=== PATIENT | male | born 1970 | race African-American/Black ===

== ENCOUNTER 2025-06-07 15:28 | Outpatient (AMB) | payer OTHER, SELFPAY ==
--- OUTSIDE RECORDS SUMMARY | 2025-02-22 11:45 | XMS_ITS ---
Author Organization [facility] Address [address] [place] [address] Care Team Providers Care Hogshead Stripper Name Role Phone Andrea Owens Primary Care Provider Romana Valles Unavailable [phone] Encounters Encounter Location Date Provider Diagnosis [address] [address] 02/22/2025 Romana Leyva Plan Of Treatment No Information Progress Notes * Sharee MANCUSOOB:1970 ([age] yo M)Acc No.[id number]:02/22/2025 Progress Note Patient: John TIRADO Provider: Mari Leyva DPM :1970 A ge:54 Y S ex:Male Date:02/22/2025 Address:[address] [place] [address], [place] Pcp:Andrea Owens Subjective: * Chief Complaints: * * Medical History: Objective: * Vitals: Assessment: Plan: * Treatment: * Images: * The named appointment provid er may or may not be the originator of this progress note, and it is not deemed complete until electronically signed by the appointment provider. Sign off status: Pending * Provider: Mari Leyva DPM Date: 02/22/2025 Generated for Traceei kai/Jennifer/eTransmitting on: 06/07/2025 03:59 PM EDT
--- OUTSIDE RECORDS SUMMARY | 2025-06-07 15:58 | XMS_ITS | Clinical Summary ---
Author Organization [facility] [place] [address] Care Team Providers Care Tow Truck Operator Name Role Phone Andrea Owens MD Primary Care Provider [phone] Surgical History Surgery Date Site/Laterality Comments SINUS SURGERY PROCEDURE:SINUS SURGERY HAND SURGERY PROCEDURE:HAND SURGERY CARDIAC CATHETERIZATION 03/07/2023 N/A PROCEDURE:CARDIAC CATHETERIZATION;COMMENT:Procedure: LEFT HEART CATHETERIZATION; Surgeon: Ishmael Kent DO; Location: [facility]OTE[facility]; Service: Cardiology; Laterality: N/A; CARDIAC CATHETERIZATION 03/07/2023 N/A PROCEDURE:CARDIAC CATHETERIZATION;COMMENT:Procedure: CORONARY ANGIOGRAPHY; Surgeon: Ishmael Kent DO; Location: [facility]; Service: Cardiology; Laterality: N/A; Medical History Medical History Date Comments Hyperlipidemia DX:Hyperlipidemi a Hypertension DX:Hypertension Diabetes mellitus (CMS/HCC V24, CMS/HCC V28) DX:Diabetes mellitus ([facility]) Social History Tobacco Use Types Packs/Day Years Used Date Smoking Tobacco: Never Smokeless Tobacco: Never Alcohol Use Standard Drinks/Week Comments Not Currently 0 (1 standard drink = 0.6 oz pur e alcohol) Sex and Gender Information Value Date Recorded Sex Assigned at Not on file Legal Sex Male 11:03 AM EST Gender Identity Not on file Sexual Orientation Not on file Obstetrics History Last Filed Vital Signs Vital Sign Reading Time Taken Comments Blood Pressure 146/89 07/13/2024 10:52 AM EDT Pulse 76 02/19/2023 10:58 AM EDT Temperature - - Respiratory Rate - - Oxygen Saturation - - Inhaled Oxygen Concentration - - Weight 149 kg (328 lb) 07/13/2024 10:52 AM EDT Height 182.9 cm (6') 07/13/2024 10:52 AM EDT Body Mass Index 44.48 07/13/2024 10:52 AM EDT Plan of Treatment Health Maintenance Due Date Last Done Comments DTaP,Tdap,and Td Vaccines (1 - Tdap) 1989 Hepatitis B Vaccines (1 of 3 - 19+ 3-dose series) 1989 Pneumococcal Vaccine: 50+ Ye ars (1 of 2 - PCV) 1989 Zoster Vaccines (1 of 2) 2020 Cholesterol Screening (Lipid Panel) 09/18/2022 Colorectal Cancer Screening: Colonoscopy 09/18/2022 HIV Screening 09/18/2022 Hepatitis C Screening 09/18/2022 Social Influencers of Health Screening 09/18/2022 Hypertension/CHF/CAD Annual BMP Blood Test 11/24/2023 COVID-19 Vaccine (1 - 2023-2 5 season) 2024 Depression Screening 10/21/2024 Influenza Vaccine (#1) 2025 HIB Vaccines Aged Out No longer eligi ble based on patient's age to complete this topic HPV Vaccines Aged Out No longer eligi ble based on patient's age to complete this topic Hepatitis A Vaccines Aged Out No long er eligible based on patient's age to complete this topic IPV Vaccines Aged Out No longer eligi ble based on patient's age to complete this topic MMR Vaccines Aged Out No longer eligi ble based on patient's age to complete this topic Meningococcal ACWY Vaccine Aged Out N o longer eligible based on patient's age to complete this topic Meningococcal B Vaccine Aged Out No l onger eligible based on patient's age to complete this topic RSV Immunization Patients Un kevyn 20 months Aged Out No longer eligible b ased on patient's age to complete this topic Varicella Vaccines Aged Out No longer eligible based on patient's age to complete this topic Care Teams Tow Truck Operator Relationship Specialty Start Date End Date Andrea Owens MD PCP - General 02/19/23
--- OUTSIDE RECORDS SUMMARY | 2025-06-07 15:58 | XMS_ITS | Clinical Summary ---
Author Organization [facility] Address [address] [place] [address] Care Team Providers Care Traffic Operations Engineer Name Role Phone Andrea Owens MD Primary Care Provider [phone] Allergies No known active allergies Medications Medication Sig Dispensed Refills Start Date End Date Status amLODIPine (NORVASC) tablet 10 mg Take 1 tablet (10 mg total) by mouth daily. 0 02/04/2023 Active carvedilol (COREG) 25 MG tablet Take 1 tablet (25 mg total) by mouth 2 (two) times a day. 0 01/27/2023 Active diclofenac (VOLTAREN) 75 MG EC tablet Take 1 tablet (75 mg total) by mouth 2 (two) times a day as needed. for pain 0 02/04/2023 Active olmesartan (BENICAR) tablet 40 mg Take 1 tablet (40 mg total) by mouth. 0 Active rosuvastatin (CRESTOR) tablet 20 mg Take 1 tablet (20 mg total) by mouth daily. 0 01/30/2023 Active terazosin (HYTRIN) 5 MG capsule Take 1 capsule (5 mg total) by mouth daily. 0 02/11/2023 Active dulaglutide (TRULICITY) 0.75 MG/0.5ML subcutaneous pen-injector Inject under the skin once a week. 0 Active Active Problems Problem Noted Date Diagnosed Date Abnormal EKG 02/19/2023 Essential hypertension 02/19/2023 Mixed hyperlipidemia 02/19/2023 Social History Tobacco Use Types Packs/Day Years Used Date Smoking Tobacco: Never Passive Smoke Exposure: Never Smokeless Tobacco: Never Tobacco Cessation:Counseling Given: Not Answered Alcohol Use Standard Drinks/Week Comments Not Currently 0 (1 standard drink = 0.6 oz pur e alcohol) Sex and Gender Information Value Date Recorded Sex Assigned at Male 02/25/2023 10:46 AM EDT Gender Identity Not on file Sexual Orientation Not on file Job Start Date Occupation Industry Not on file Not on file Not on file Last Filed Vital Signs Vital Sign Reading Time Taken Comments Blood Pressure 171/97 03/07/2023 3:30 PM EDT Pulse 73 03/07/2023 3:30 PM EDT Temperature 36.6 C (97.9 F) 03/07/2023 9:48 AM EDT Respiratory Rate 24 03/07/2023 3:30 PM EDT Oxygen Saturation 99% 03/07/2023 3:30 PM EDT Inhaled Oxygen Concentration - - Weight 153 kg (337 lb 4.8 oz) 03/07/2023 9:48 AM EDT Height 182.9 cm (6') 03/07/2023 9:48 AM EDT Body Mass Index 45.75 03/07/2023 9:48 AM EDT Plan of Treatment Health Maintenance Due Date Last Done Comments Hepatitis B Vaccines (1 of 3 - 3-dose series) 1970 Hepatitis C Screening 1970 Depression Screening 1982 BMI Counseling 1988 Preventative Health Evaluation 1988 DTap / Tdap / Td (1 - Tdap) 1989 Colon Cancer Screening (Colonoscopy) 2015 Shingrix-Zoster Vaccine (1 of 2) 2020 COVID-19 Vaccine (2 - 2023-2 5 season) 2024 03/11/2021 Influenza Vaccine (#1) 2025 09/11/2021 Pneumococcal Vaccine Aged Out No long er eligible based on patient's age to complete this topic RSV Ped < 20 months Aged Out No longe r eligible based on patient's age to complete this topic Insurance Payer Benefit Plan / Group Subscriber ID Effective Dates Phone Address [facility] [id number] 2018-Present [address] [facility] [address] [place] [address] HMO Advance Directives For more information, please contact: [phone] Latest Code Status on File Code Status Date Activated Date Inactivated Comments Full Code 03/07/2023 1:16 PM 03/07/2023 11:43 PM This code status was ascertained in the following way: discussion with patient . Care Teams Traffic Operations Engineer Relationship Specialty Start Date End Date Andrea Owens MD [address] [place] [address] PCP - General Internal Medicine 02/19/23
--- OUTSIDE RECORDS SUMMARY | 2025-06-07 15:58 | XMS_ITS | Encounter Summary ---
Author Organization [facility] Address [address] [place] [address] Care Team Providers Care Tower Operator Name Role Phone Abrahan Hastings MD Unavailable Andrea Owens MD Primary Care Provider [phone] Carlos Eduardo Fulton MD Unavailable Jose Jolly MD Unavailable [phone] Encounter Details Date Type Department Care Team (Late st Contact Info) Description 04/26/2023 Scanned Document [facility] [address] [id number] Abrahan Hastings MD [address] [place] [id number] Social History Tobacco Use Types Packs/Day Years Used Date Smoking Tobacco: Never Smokeless Tobacco: Never Alcohol Use Standard Drinks/Week Comments Not Currently 0 (1 standard drink = 0.6 oz pur e alcohol) social only AUDIT-C Answer Date Recorded Q1: How often do you have a drink containing alc ohol? Monthly or less 03/20/2023 Q2: How many drinks containi ng alcohol do you have on a typical day when you are drinking? 1 or 2 03/20/2023 Q3: How often do you have si x or more drinks on one occasion? Never 03/20/2023 Sex and Gender Information Value Date Recorded Sex Assigned at Male 01/21/2023 11:36 AM EDT Legal Sex Male 8:32 AM EDT Gender Identity Male 01/21/2023 11:36 AM EDT Sexual Orientation Heterosexual (straight) 04/26 8:56 AM EDT COVID-19 Exposure Response Date Recorded In the last 10 days, have yo u been in contact with someone who was confirmed or suspected to have Coronavirus/COVID-19? No / Unsure 04/26/2023 8:57 AM EDT documented as of this encounter Plan of Treatment Not on file documented as of this encounter Visit Diagnoses Not on filedocumented in this encounter Care Teams Tower Operator Relationship Specialty Start Date End Date Andrea Owens MD [address] [place] [phone] PCP - General Internal Medicine 02/01/23 Abrahan Hastings MD [address] [place] [phone] Surgery, Orthopedic 02/01/23 Carlos Eduardo Fulton MD [address] [place] [phone] Cardiovascular Disease 03/20/23 Jose Jolly MD [address] [place] [phone] Primary Vein Pumper Cardiovascular Disease 12/12/23 documented as of this encounter
--- OUTSIDE RECORDS SUMMARY | 2025-06-07 15:59 | XMS_ITS | Patient Health Record ---
Author Organization [facility] [address] Address [address] [place] [address] Care Team Providers Care Fountain Dispenser Name Role Phone EMILY SCOTT Unavailable [phone] Allergies No Known Allergies Results Component Value Reference Range Notes LIPID PANEL, STANDARD Reviewed date:03/11/2025 08:15:51 AM Interpretation: Performing [facility] [place], [place] [id number] Ricardo Rhoades Notes/Report: FASTING: YES FASTING:YES CHOLESTEROL, TOTAL 120 <200 mg/dL HDL CHOLESTEROL 34 > OR = 40 mg/dL TRIGLYCERIDES 98 <150 mg/dL LDL-CHOLESTEROL 68 Reference range: <100 Desirable range <100 mg/dL for primary prevention; <70 mg/dL for patients with CHD or diabetic patients with > or = 2 CHD risk factors. LDL-C is now calculated using the Mark-Jenkins calculation, which is a validated novel method providing better accuracy than the Friedewald equation in the estimation of LDL-C. Mark SS et al. VANESSA. 2013;310(19): 1686-4631 (http://education.Lax.com.com/faq/APG410) CHOL/HDLC RATIO 3.5 <5.0 (calc) NON HDL CHOLESTEROL 86 <130 mg/dL (calc) For patients with diabetes plus 1 major ASCVD risk factor, treating to a non-HDL-C goal of <100 mg/dL (LDL-C of <70 mg/dL) is considered a therapeutic option. COMPREHENSIVE METABOLIC PANE L Reviewed date:03/11/2025 08:16:11 AM Interpretation: Performing [facility] [place], [place] [id number] Ricardo Rhoades Notes/Report: FASTING:YES FASTING: YES GLUCOSE 79 65-99 mg/dL Fasting reference interval UREA NITROGEN (BUN) 13 7-25 mg/dL CREATININE 0.92 0.70-1.30 mg/dL EGFR 99 > OR = 60 mL/min/1.73m2 BUN/CREATININE RATIO SEE NOTE: 6-22 (calc) Not Reported: BUN and Creatinine are within reference range. SODIUM 139 135-146 mmol/L POTASSIUM 3.9 3.5-5.3 mmol/L CHLORIDE 103 98-110 mmol/L CARBON DIOXIDE 28 20-32 mmol/L CALCIUM 8.7 8.6-10.3 mg/dL PROTEIN, TOTAL 6.8 6.1-8.1 g/dL ALBUMIN 4.0 3.6-5.1 g/dL GLOBULIN 2.8 1.9-3.7 g/dL (calc) ALBUMIN/GLOBULIN RATIO 1.4 1.0-2.5 (calc) BILIRUBIN, TOTAL 0.4 0.2-1.2 mg/dL ALKALINE PHOSPHATASE 53 35-144 U/L AST 17 10-35 U/L ALT 15 9-46 U/L CBC (INCLUDES DIFF/PLT) Reviewed date:03/11/2025 08:15:45 AM Interpretation: Performing Lab:NL2, [facility] [address] Ricardo Shrestha Notes/Report: FASTING:YES FASTING: YES WHITE BLOOD CELL COUNT 4.7 3.8-10.8 Thousand/ uL RED BLOOD CELL COUNT 4.45 4.20-5.80 Million/uL HEMOGLOBIN 11.6 13.2-17.1 g/dL HEMATOCRIT 37.5 38.5-50.0 % MCV 84.3 80.0-100.0 fL MCH 26.1 27.0-33.0 pg MCHC 30.9 32.0-36.0 g/dL For adults, a slight decrease in the calculated MCHC value (in the range of 30 to 32 g/dL) is most likely not clinically significant; however, it should be interpreted with caution in correlation with other red cell parameters and the patient's clinical condition. RDW 16.0 11.0-15.0 % PLATELET COUNT 231 140-400 Thousand/uL MPV 11.2 7.5-12.5 fL ABSOLUTE NEUTROPHILS 2265 2744-6944 cells/uL ABSOLUTE LYMPHOCYTES 9892 584-2907 cells/uL ABSOLUTE MONOCYTES 616 200-950 cells/uL ABSOLUTE EOSINOPHILS 61 15-500 cells/uL ABSOLUTE BASOPHILS 19 0-200 cells/uL NEUTROPHILS 48.2 LYMPHOCYTES 37.0 MONOCYTES 13.1 EOSINOPHILS 1.3 BASOPHILS 0.4 URINALYSIS, COMPLETE Reviewed date:03/11/2025 08:16:11 AM Interpretation: Performing Lab:NL2, [id number] Ricardo Rhoades Notes/Report: FASTING:YES FASTING: YES COLOR YELLOW YELLOW APPEARANCE CLEAR CLEAR SPECIFIC GRAVITY 1.027 1.001-1.035 PH 6.5 5.0-8.0 GLUCOSE NEGATIVE NEGATIVE BILIRUBIN NEGATIVE NEGATIVE KETONES TRACE NEGATIVE OCCULT BLOOD NEGATIVE NEGATIVE PROTEIN TRACE NEGATIVE NITRITE NEGATIVE NEGATIVE LEUKOCYTE ESTERASE NEGATIVE NEGATIVE WBC NONE SEEN < OR = 5 /HPF RBC 0-2 < OR = 2 /HPF SQUAMOUS EPITHELIAL CELLS NONE SEEN < OR = 5 /HPF BACTERIA NONE SEEN NONE SEEN /HPF HYALINE CAST NONE SEEN NONE SEEN /LPF NOTE This urine was analyzed for the presence of WBC, RBC, bacteria, casts, and other formed elements. Only those elements seen were reported. HEMOGLOBIN A1c Reviewed date:03/11/2025 08:14:47 AM Interpretation: Performing Lab:GERRY[facility], [id number] Jaye Jordyn Rhoades Notes/Report: FASTING:YES FASTING: YES HEMOGLOBIN A1c 5.9 <5.7 % For someone without known diabetes, a hemoglobin A1c value between 5.7% and 6.4% is consistent with prediabetes and should be confirmed with a follow-up test. For someone with known diabetes, a value <7% indicates that their diabetes is well controlled. A1c targets should be individualized based on duration of diabetes, age, comorbid conditions, and other considerations. This assay result is consistent with an increased risk of diabetes. Currently, no consensus exists regarding use of hemoglobin A1c for diagnosis of diabetes for children. Your request to have a duplicate copy faxed has been acknowledged. Queued to: [id number] T4, FREE Reviewed date:03/11/2025 08:16:11 AM Interpretation: Performing Lab:NL2, [facility] [id number] Ricardo Rhoades Notes/Report: FASTING:YES FASTING: YES T4, FREE 1.1 0.8-1.8 ng/dL TSH Reviewed date:03/11/2025 08:16:11 AM Interpretation: Performing Lab:NL2, [facility] [id number] [place] [address] [facility] Notes/Report: FASTING:YES FASTING: YES TSH 0.95 0.40-4.50 mIU/L T3, FREE Reviewed date:03/11/2025 08:16:11 AM Interpretation: Performing Lab:NL2, [id number] [place] [address] [facility] Notes/Report: FASTING:YES FASTING: YES T3, FREE 3.2 2.3-4.2 pg/mL Reason For Referral No Information Medications Medication SIG (Take, Route, Frequency, Duration) Notes Start Date End Date Status Mounjaro 12.5 MG/0.5ML 12.5 mg Subcutane ous weekly; Duration: 30 days 03/09/2025 Active Dexcom G6 Sensor - APPLY ONE SENSOR SUBCUTANEOUSLY EVERY 10 DAYS; Duration: 30 Active Mounjaro 10 MG/0.5ML INJECT 10 MG UNDER THE SKIN ONE DAY A WEEK; Duration: 28 Active Carvedilol 25 MG TAKE 1 TABLET BY LUIZA TWICE DAILY WITH FOOD; Duration: 90 Active CeleBREX 200 MG 1 capsule with food Orally Once a day Active DexSocialBro G6 Plasterer Tender - as directed; Durati on: 30 days 11/01/2023 Active DexSocialBro G6 Transmitter - apply one sensor subcutaneously every 10 days for DX E11.9; Duration: 30 days Active Prazosin HCl 5 MG TAKE 1 CAPSULE BY [facility] DAILY AT BEDTIME; Duration: 90 Active Furosemide 40 MG TAKE 1 TABLET BY LUIZA TH DAILY; Duration: 90 Active metFORMIN HCl ER 500 MG TAKE 2 TABLETS B Y MOUTH TWICE DAILY; Duration: 30 Active Olmesartan Medoxomil 40 MG 1 tablet Orally Once a day; Duration: 90 days 02/18/2024 Active Rosuvastatin Calcium 20 MG 1 tablet Orally Once a day; Duration: 90 days Active Immunizations Vaccine Route Administration Date Status Comme nts influenza IM Intramuscular 10/15/2023 Administered SHINGRIX IM Intramuscular 11/05/2023 Administered SHINGRIX IM Intramuscular 08/06/2024 Administered SHINGRIX IM Intramuscular 11/09/2024 Administered Tdap IM Intramuscular 11/09/2024 Administered Problems Problem Type SNOMED Code ICD Code Onset Dates Problem Status W/U Status Risk Notes Problem Vitamin D deficiency (22741007) Vitamin D deficiency, unspecified (E55.9) Active confirmed Problem Essential hypertension (03526536) Essential (primary) hypertension (I10) Active confirmed Problem Excessive thirst (35193805) Polydipsia (R63.1) Active confirmed Problem Screening for malignant neoplasm of prostate (764844262) Encounter for screening for malignant neoplasm of prostate (Z12.5) Active confirmed Problem Endocrine/metabolic screening (288776860) Encounter for screening for other suspected endocrine disorder (Z13.29) Active confirmed Problem Screening procedure (61772275) Encounter for screening, unspecified (Z13.9) Active confirmed Problem Essential hypertension (73283387) Essential hypertension (I10) Active confirmed Problem Morbid obesity (360739938) Morbid obesity (E66.01) Active confirmed Problem Backache (602235111) Back pain, unspecified back location, unspecified back pain laterality, unspecified chronicity (M54.9) Active confirmed Problem Pure hypercholesterolemia (279646912) Pure hypercholesterolemia (E78.00) Active confirmed Problem Acquired hypothyroidism (394752372) Acquired hypothyroidism (E03.9) Active confirmed Problem Hyperlipoproteinemia (4067864) Acquired hyperlipoproteinemia (E78.5) Active confirmed Problem Seasonal allergy (615855631) Seasonal allergies (J30.2) Active confirmed Problem Type II diabetes mellitus without complication (380938487) Type 2 diabetes mellitus without complication, without long-term current use of insulin (E11.9) Active confirmed Problem Dyslipidemia (286678858) Dyslipidemia (E78.5) Active confirmed Problem Obstructive sleep apnea (07450752) Obstructive sleep apnea (G47.33) Active confirmed Problem Hyperglycemia due to type 2 diabetes mellitus (912981316730110) Poorly controlled diabetes mellitus (E11.65) Active confirmed Problem Body mass index 40+ - severely obese (871734104) BMI 45.0-49.9, adult (Z68.42) Active confirmed Vital Signs Heart Rate 97 /min 03/09/2025 Oximetry 98 % 03/09/2025 Blood pressure diastolic 96 mm Hg 03/09/2025 Height 71 in 03/09/2025 Blood pressure systolic 144 mm Hg 03/09/2025 Weight 324.2 lbs 03/09/2025 BMI 45.21 kg/m2 03/09/2025 Encounters Encounter Location Date Provider Diagnosis [facility] [address] [place] [address] 08/06/2024 EMILY SCOTT Dyslipidemia E78.5 ; Type 2 diabetes mellitus without complication, without long-term current use of insulin E11.9 ; Acquired hypothyroidism E03.9 ; Peripheral edema R60.9 and Encounter for immunization Z23 [facility] [address] [place] [address] 11/09/2024 EMILY SCOTT Type 2 diabetes deanne itus without complication, without long-term current use of insulin E11.9 ; Annual physical exam Z00.00 ; Dyslipidemia E78.5 ; Acquired hypothyroidism E03.9 ; Peripheral edema R60.9 and Encounter for immunization Z23 [facility] [address] [place] [address] 03/09/2025 EMILY SCOTT Type 2 diabetes deanne itus without complication, without long-term current use of insulin E11.9 ; Dyslipidemia E78.5 ; Acquired hypothyroidism E03.9 ; Peripheral edema R60.9 and Essential hypertension I10 [facility] [address] [place] [phone] 03/17/2025 EMILY SCOTT Assessments Encounter Date Diagnosis (ICD Code) Assessment Notes Treatment Notes Treatment Clinical Notes Section Notes 08/06/2024 Type 2 diabetes mellitus without complication, without long-term current use of insulin (ICD-10 - E11.9) # T2DM Patient is currently taking metformin 1 mg x 2 tabs BID and Mounjaro 7.5 mg weekly injection. States blood sugars have been well controlled, at time of visit being at 95. Uses dexacom to track blood sugars and states majority of the time they are in range, with a few highs that he is easily able to get back down. Check POC HbA1C today-5.8! #Peripheral edema. Patient endorses bilateral lower leg edema. Echo normal. ? Due to Amlodipine. Will continue Furosemide 40 mg po daily. Dsicussed hidden sodium causing increased swelling. # Obesity: BMI 46.83, Weight 328. Patient down 10 lbs since previous visit, increase Mounjaro to 10 mg to increase appetite supression. Patient denies side effects including nausea and constipation. Case discussed with collaborating physician Isaura Owens who reviewed the assessment and plan. Chart, medications, labs, vital signs reviewed. Dictation was accomplished with the use of [employer] voice recognition software, prone to medical misidentifications and grammatical errors. This is unintentional and the practitioner does try to identify and correct these, but some could still be present. Please do not hesitate to contact practitioner for clarification. All questions answered to patients satisfaction. Patient verbalized understanding of diagnosis and treatments explained. To call sooner prior to next visit it any questions/concerns arise. 08/06/2024 Dyslipidemia (ICD-10 - E78.5) # T2DM Patient is currently taking metformin 1 mg x 2 tabs BID and Mounjaro 7.5 mg weekly injection. States blood sugars have been well controlled, at time of visit being at 95. Uses dexacom to track blood sugars and states majority of the time they are in range, with a few highs that he is easily able to get back down. Check POC HbA1C today-5.8! #Peripheral edema. Patient endorses bilateral lower leg edema. Echo normal. ? Due to Amlodipine. Will continue Furosemide 40 mg po daily. Dsicussed hidden sodium causing increased swelling. # Obesity: BMI 46.83, Weight 328. Patient down 10 lbs since previous visit, increase Mounjaro to 10 mg to increase appetite supression. Patient denies side effects including nausea and constipation. Case discussed with collaborating physician Isaura Owens who reviewed the assessment and plan. Chart, medications, labs, vital signs reviewed. Dictation was accomplished with the use of [employer] voice recognition software, prone to medical misidentifications and grammatical errors. This is unintentional and the practitioner does try to identify and correct these, but some could still be present. Please do not hesitate to contact practitioner for clarification. All questions answered to patients satisfaction. Patient verbalized understanding of diagnosis and treatments explained. To call sooner prior to next visit it any questions/concerns arise. 11/09/2024 Annual physical exam (ICD-10 - Z00.00) # T2DM Patient is currently taking metformin 500 mg x 2 tabs BID and Mounjaro 10 mg weekly injection. States blood sugars have been well controlled, uses Dexcom. Reports rash from adhesive, recommended changing Dexcom site to back of the arm. #Peripheral edema. Improved since discontinuing amlodipine. Continue Furosemide 40 mg po daily. Continue compression socks. # Obesity: BMI 44.24, Weight 317. Patient down 10 lbs since previous visit. Continue Mounjaro 10 mg. Patient denies side effects including nausea and constipation. # Screenings: UTD # Vaccines: Due for tetanus and second shingles dose. Physical Men Patient seen and examined. Comprehensive discussion was done on the following. 1. Nutrition: It is important to follow a healthy diet based on lots of vegetables and legumes and good fat. Avoid processed food and processed carbohydrates. Learn to prepare your own meals. Learn to read labels and avoid high fructose corn syrup, processed chemicals added to increase shelf life and preprepared meals. Avoid fast foods. Learn to eat slowly and plan meals for a week. Try to count calories and be mindful off daily calorie intake. Get into the habit of keeping an eye on your weight by using an appropriate scale. Learn to log exercise and discussed fitness Apps like [employer] which can help keep log off calories taken versus calories burned. Local food should be preferred. Discussed Dirty Dozen Versus Clean Fifteen. Discussed healthy supplements like fish oil, Tumeric, Curcumin, Melatonin, Resveratrol, Probiotics, Vitamin-D, Alpha-Lipoic acid, Vitamin-D and coconut oil. 2. It is important to exercise regularly. Is a good habit to walk at least 30-45 minutes a day. Gentle weightlifting with standard precautions to protect the back. Finding activity like cycling or hiking and get into the habit of engaging in it. Stretching before and after the exercises important. It is also important to contact me if there are any problems like shortness of breath, chest pain, back pain and joint or muscle pain associated with the exercise. 3. Discussed age appropriate screening guidelines. Colonoscopy needs to start at age 50 with stool for occult blood as appropriate. There is a new test that can test for genetic abnormalities in the stool sample. This would not replace a colonoscopy but could be used as a screening tool for patients who do not want a colonoscopy. We discussed the importance of early detection of colon cancer. 4. Discussed current PSA screening. PSA screening can be done in most patients between age 50 and 65. However early detection of prostate cancer needs to carefully be balanced with complications with treatment. These include incontinence, impotence etc. Each patient should decide if they would like to have this test. 5. Discussed safe driving and no use of smart phone while driving 6. Age-appropriate immunizations were discussed. A tetanus booster is needed every 10 years. Flu vaccine is recommended every year just before the start of the flu season. Shingles vaccine is recommended after age 50 but not all insurances cover it. Pneumonia vaccine is given after age 65 unless there are certain comorbidities for which it is started earlier. 7. Diagnostic labs were discussed. These could include CBC CMP and lipids with fasting blood glucose and insulin levels. Vitamin D and hemoglobin A1c testing might be appropriate. Case discussed with collaborating physician Isaura Owens who reviewed the assessment and plan. Chart, medications, labs, vital signs reviewed. Dictation was accomplished with the use of [employer] voice recognition software, prone to medical misidentifications and grammatical errors. This is unintentional and the practitioner does try to identify and correct these, but some could still be present. Please do not hesitate to contact practitioner for clarification. All questions answered to patients satisfaction. Patient verbalized understanding of diagnosis and treatments explained. To call sooner prior to next visit it any questions/concerns arise. 11/09/2024 Type 2 diabetes mellitus without complication, without long-term current use of insulin (ICD-10 - E11.9) # T2DM Patient is currently taking metformin 500 mg x 2 tabs BID and Mounjaro 10 mg weekly injection. States blood sugars have been well controlled, uses Dexcom. Reports rash from adhesive, recommended changing Dexcom site to back of the arm. #Peripheral edema. Improved since discontinuing amlodipine. Continue Furosemide 40 mg po daily. Continue compression socks. # Obesity: BMI 44.24, Weight 317. Patient down 10 lbs since previous visit. Continue Mounjaro 10 mg. Patient denies side effects including nausea and constipation. # Screenings: UTD # Vaccines: Due for tetanus and second shingles dose. Physical Men Patient seen and examined. Comprehensive discussion was done on the following. 1. Nutrition: It is important to follow a healthy diet based on lots of vegetables and legumes and good fat. Avoid processed food and processed carbohydrates. Learn to prepare your own meals. Learn to read labels and avoid high fructose corn syrup, processed chemicals added to increase shelf life and preprepared meals. Avoid fast foods. Learn to eat slowly and plan meals for a week. Try to count calories and be mindful off daily calorie intake. Get into the habit of keeping an eye on your weight by using an appropriate scale. Learn to log exercise and discussed fitness Apps like [employer] which can help keep log off calories taken versus calories burned. Local food should be preferred. Discussed Dirty Dozen Versus [employer] Fifteen. Discussed healthy supplements like fish oil, Tumeric, Curcumin, Melatonin, Resveratrol, Probiotics, Vitamin-D, Alpha-Lipoic acid, Vitamin-D and coconut oil. 2. It is important to exercise regularly. Is a good habit to walk at least 30-45 minutes a day. Gentle weightlifting with standard precautions to protect the back. Finding activity like cycling or hiking and get into the habit of engaging in it. Stretching before and after the exercises important. It is also important to contact me if there are any problems like shortness of breath, chest pain, back pain and joint or muscle pain associated with the exercise. 3. Discussed age appropriate screening guidelines. Colonoscopy needs to start at age 50 with stool for occult blood as appropriate. There is a new test that can test for genetic abnormalities in the stool sample. This would not replace a colonoscopy but could be used as a screening tool for patients who do not want a colonoscopy. We discussed the importance of early detection of colon cancer. 4. Discussed current PSA screening. PSA screening can be done in most patients between age 50 and 65. However early detection of prostate cancer needs to carefully be balanced with complications with treatment. These include incontinence, impotence etc. Each patient should decide if they would like to have this test. 5. Discussed safe driving and no use of smart phone while driving 6. Age-appropriate immunizations were discussed. A tetanus booster is needed every 10 years. Flu vaccine is recommended every year just before the start of the flu season. Shingles vaccine is recommended after age 50 but not all insurances cover it. Pneumonia vaccine is given after age 65 unless there are certain comorbidities for which it is started earlier. 7. Diagnostic labs were discussed. These could include CBC CMP and lipids with fasting blood glucose and insulin levels. Vitamin D and hemoglobin A1c testing might be appropriate. Case discussed with collaborating physician Isaura Owens who reviewed the assessment and plan. Chart, medications, labs, vital signs reviewed. Dictation was accomplished with the use of [employer] voice recognition software, prone to medical misidentifications and grammatical errors. This is unintentional and the practitioner does try to identify and correct these, but some could still be present. Please do not hesitate to contact practitioner for clarification. All questions answered to patients satisfaction. Patient verbalized understanding of diagnosis and treatments explained. To call sooner prior to next visit it any questions/concerns arise. 03/09/2025 Type 2 diabetes mellitus without complication, without long-term current use of insulin (ICD-10 - E11.9) # T2DM Patient is currently taking metformin 500 mg x 2 tabs BID and Mounjaro 10 mg weekly injection. Increase to Mounjaro 12.5 mg subcu weekly. States blood sugars have been well controlled, uses Dexcom. Awaiting HbA1C #Peripheral edema. Improved since discontinuing amlodipine. Continue Furosemide 40 mg po daily. Continue compression socks. # Obesity: BMI 44.24, Weight 317. Patient down 10 lbs since previous visit. Continue Mounjaro 10 mg. Patient denies side effects including nausea and constipation. # HTN. Asked to check at home. On Olmesartan and Metoprolol. Denies headaches. # Seasonal allergies. Takes Zyrtec. Instructed to avoid anything with decongestants. Case discussed with collaborating physician Jemma Owens who reviewed the assessment and plan. Chart, medications, labs, vital signs reviewed. Dictation was accomplished with the use of [employer] voice recognition software, prone to medical misidentifications and grammatical errors. This is unintentional and the practitioner does try to identify and correct these, but some could still be present. Please do not hesitate to contact practitioner for clarification. All questions answered to patients satisfaction. Patient verbalized understanding of diagnosis and treatments explained. To call sooner prior to next visit it any questions/concerns arise. 03/09/2025 Dyslipidemia (ICD-10 - E78.5) # T2DM Patient is currently taking metformin 500 mg x 2 tabs BID and Mounjaro 10 mg weekly injection. Increase to Mounjaro 12.5 mg subcu weekly. States blood sugars have been well controlled, uses Dexcom. Awaiting HbA1C #Peripheral edema. Improved since discontinuing amlodipine. Continue Furosemide 40 mg po daily. Continue compression socks. # Obesity: BMI 44.24, Weight 317. Patient down 10 lbs since previous visit. Continue Mounjaro 10 mg. Patient denies side effects including nausea and constipation. # HTN. Asked to check at home. On Olmesartan and Metoprolol. Denies headaches. # Seasonal allergies. Takes Zyrtec. Instructed to avoid anything with decongestants. Case discussed with collaborating physician Jemma Owens who reviewed the assessment and plan. Chart, medications, labs, vital signs reviewed. Dictation was accomplished with the use of [employer] voice recognition software, prone to medical misidentifications and grammatical errors. This is unintentional and the practitioner does try to identify and correct these, but some could still be present. Please do not hesitate to contact practitioner for clarification. All questions answered to patients satisfaction. Patient verbalized understanding of diagnosis and treatments explained. To call sooner prior to next visit it any questions/concerns arise. 08/06/2024 Acquired hypothyroidism (ICD-10 - E03.9) # T2DM Patient is currently taking metformin 1 mg x 2 tabs BID and Mounjaro 7.5 mg weekly injection. States blood sugars have been well controlled, at time of visit being at 95. Uses dexacom to track blood sugars and states majority of the time they are in range, with a few highs that he is easily able to get back down. Check POC HbA1C today-5.8! #Peripheral edema. Patient endorses bilateral lower leg edema. Echo normal. ? Due to Amlodipine. Will continue Furosemide 40 mg po daily. Dsicussed hidden sodium causing increased swelling. # Obesity: BMI 46.83, Weight 328. Patient down 10 lbs since previous visit, increase Mounjaro to 10 mg to increase appetite supression. Patient denies side effects including nausea and constipation. Case discussed with collaborating physician Isaura Owens who reviewed the assessment and plan. Chart, medications, labs, vital signs reviewed. Dictation was accomplished with the use of [employer] voice recognition software, prone to medical misidentifications and grammatical errors. This is unintentional and the practitioner does try to identify and correct these, but some could still be present. Please do not hesitate to contact practitioner for clarification. All questions answered to patients satisfaction. Patient verbalized understanding of diagnosis and treatments explained. To call sooner prior to next visit it any questions/concerns arise. 03/09/2025 Acquired hypothyroidism (ICD-10 - E03.9) # T2DM Patient is currently taking metformin 500 mg x 2 tabs BID and Mounjaro 10 mg weekly injection. Increase to Mounjaro 12.5 mg subcu weekly. States blood sugars have been well controlled, uses Dexcom. Awaiting HbA1C #Peripheral edema. Improved since discontinuing amlodipine. Continue Furosemide 40 mg po daily. Continue compression socks. # Obesity: BMI 44.24, Weight 317. Patient down 10 lbs since previous visit. Continue Mounjaro 10 mg. Patient denies side effects including nausea and constipation. # HTN. Asked to check at home. On Olmesartan and Metoprolol. Denies headaches. # Seasonal allergies. Takes Zyrtec. Instructed to avoid anything with decongestants. Case discussed with collaborating physician Jemma Owens who reviewed the assessment and plan. Chart, medications, labs, vital signs reviewed. Dictation was accomplished with the use of [employer] voice recognition software, prone to medical misidentifications and grammatical errors. This is unintentional and the practitioner does try to identify and correct these, but some could still be present. Please do not hesitate to contact practitioner for clarification. All questions answered to patients satisfaction. Patient verbalized understanding of diagnosis and treatments explained. To call sooner prior to next visit it any questions/concerns arise. 11/09/2024 Dyslipidemia (ICD-10 - E78.5) # T2DM Patient is currently taking metformin 500 mg x 2 tabs BID and Mounjaro 10 mg weekly injection. States blood sugars have been well controlled, uses Dexcom. Reports rash from adhesive, recommended changing Dexcom site to back of the arm. #Peripheral edema. Improved since discontinuing amlodipine. Continue Furosemide 40 mg po daily. Continue compression socks. # Obesity: BMI 44.24, Weight 317. Patient down 10 lbs since previous visit. Continue Mounjaro 10 mg. Patient denies side effects including nausea and constipation. # Screenings: UTD # Vaccines: Due for tetanus and second shingles dose. Physical Men Patient seen and examined. Comprehensive discussion was done on the following. 1. Nutrition: It is important to follow a healthy diet based on lots of vegetables and legumes and good fat. Avoid processed food and processed carbohydrates. Learn to prepare your own meals. Learn to read labels and avoid high fructose corn syrup, processed chemicals added to increase shelf life and preprepared meals. Avoid fast foods. Learn to eat slowly and plan meals for a week. Try to count calories and be mindful off daily calorie intake. Get into the habit of keeping an eye on your weight by using an appropriate scale. Learn to log exercise and discussed fitness Apps like [employer] which can help keep log off calories taken versus calories burned. Local food should be preferred. Discussed [employer]. Discussed healthy supplements like fish oil, Tumeric, Curcumin, Melatonin, Resveratrol, Probiotics, Vitamin-D, Alpha-Lipoic acid, Vitamin-D and coconut oil. 2. It is important to exercise regularly. Is a good habit to walk at least 30-45 minutes a day. Gentle weightlifting with standard precautions to protect the back. Finding activity like cycling or hiking and get into the habit of engaging in it. Stretching before and after the exercises important. It is also important to contact me if there are any problems like shortness of breath, chest pain, back pain and joint or muscle pain associated with the exercise. 3. Discussed age appropriate screening guidelines. Colonoscopy needs to start at age 50 with stool for occult blood as appropriate. There is a new test that can test for genetic abnormalities in the stool sample. This would not replace a colonoscopy but could be used as a screening tool for patients who do not want a colonoscopy. We discussed the importance of early detection of colon cancer. 4. Discussed current PSA screening. PSA screening can be done in most patients between age 50 and 65. However early detection of prostate cancer needs to carefully be balanced with complications with treatment. These include incontinence, impotence etc. Each patient should decide if they would like to have this test. 5. Discussed safe driving and no use of smart phone while driving 6. Age-appropriate immunizations were discussed. A tetanus booster is needed every 10 years. Flu vaccine is recommended every year just before the start of the flu season. Shingles vaccine is recommended after age 50 but not all insurances cover it. Pneumonia vaccine is given after age 65 unless there are certain comorbidities for which it is started earlier. 7. Diagnostic labs were discussed. These could include CBC CMP and lipids with fasting blood glucose and insulin levels. Vitamin D and hemoglobin A1c testing might be appropriate. Case discussed with collaborating physician Isaura Owens who reviewed the assessment and plan. Chart, medications, labs, vital signs reviewed. Dictation was accomplished with the use of [employer] voice recognition software, prone to medical misidentifications and grammatical errors. This is unintentional and the practitioner does try to identify and correct these, but some could still be present. Please do not hesitate to contact practitioner for clarification. All questions answered to patients satisfaction. Patient verbalized understanding of diagnosis and treatments explained. To call sooner prior to next visit it any questions/concerns arise. 08/06/2024 Peripheral edema (ICD-10 - R60.9) # T2DM Patient is currently taking metformin 1 mg x 2 tabs BID and Mounjaro 7.5 mg weekly injection. States blood sugars have been well controlled, at time of visit being at 95. Uses dexacom to track blood sugars and states majority of the time they are in range, with a few highs that he is easily able to get back down. Check POC HbA1C today-5.8! #Peripheral edema. Patient endorses bilateral lower leg edema. Echo normal. ? Due to Amlodipine. Will continue Furosemide 40 mg po daily. Dsicussed hidden sodium causing increased swelling. # Obesity: BMI 46.83, Weight 328. Patient down 10 lbs since previous visit, increase Mounjaro to 10 mg to increase appetite supression. Patient denies side effects including nausea and constipation. Case discussed with collaborating physician Isaura Owens who reviewed the assessment and plan. Chart, medications, labs, vital signs reviewed. Dictation was accomplished with the use of [employer] voice recognition software, prone to medical misidentifications and grammatical errors. This is unintentional and the practitioner does try to identify and correct these, but some could still be present. Please do not hesitate to contact practitioner for clarification. All questions answered to patients satisfaction. Patient verbalized understanding of diagnosis and treatments explained. To call sooner prior to next visit it any questions/concerns arise. 11/09/2024 Acquired hypothyroidism (ICD-10 - E03.9) # T2DM Patient is currently taking metformin 500 mg x 2 tabs BID and Mounjaro 10 mg weekly injection. States blood sugars have been well controlled, uses Dexcom. Reports rash from adhesive, recommended changing Dexcom site to back of the arm. #Peripheral edema. Improved since discontinuing amlodipine. Continue Furosemide 40 mg po daily. Continue compression socks. # Obesity: BMI 44.24, Weight 317. Patient down 10 lbs since previous visit. Continue Mounjaro 10 mg. Patient denies side effects including nausea and constipation. # Screenings: UTD # Vaccines: Due for tetanus and second shingles dose. Physical Men Patient seen and examined. Comprehensive discussion was done on the following. 1. Nutrition: It is important to follow a healthy diet based on lots of vegetables and legumes and good fat. Avoid processed food and processed carbohydrates. Learn to prepare your own meals. Learn to read labels and avoid high fructose corn syrup, processed chemicals added to increase shelf life and preprepared meals. Avoid fast foods. Learn to eat slowly and plan meals for a week. Try to count calories and be mindful off daily calorie intake. Get into the habit of keeping an eye on your weight by using an appropriate scale. Learn to log exercise and discussed fitness Apps like [employer] which can help keep log off calories taken versus calories burned. Local food should be preferred. Discussed [employer] Vers[employer]. Discussed healthy supplements like fish oil, Tumeric, Curcumin, Melatonin, Resveratrol, Probiotics, Vitamin-D, Alpha-Lipoic acid, Vitamin-D and coconut oil. 2. It is important to exercise regularly. Is a good habit to walk at least 30-45 minutes a day. Gentle weightlifting with standard precautions to protect the back. Finding activity like cycling or hiking and get into the habit of engaging in it. Stretching before and after the exercises important. It is also important to contact me if there are any problems like shortness of breath, chest pain, back pain and joint or muscle pain associated with the exercise. 3. Discussed age appropriate screening guidelines. Colonoscopy needs to start at age 50 with stool for occult blood as appropriate. There is a new test that can test for genetic abnormalities in the stool sample. This would not replace a colonoscopy but could be used as a screening tool for patients who do not want a colonoscopy. We discussed the importance of early detection of colon cancer. 4. Discussed current PSA screening. PSA screening can be done in most patients between age 50 and 65. However early detection of prostate cancer needs to carefully be balanced with complications with treatment. These include incontinence, impotence etc. Each patient should decide if they would like to have this test. 5. Discussed safe driving and no use of smart phone while driving 6. Age-appropriate immunizations were discussed. A tetanus booster is needed every 10 years. Flu vaccine is recommended every year just before the start of the flu season. Shingles vaccine is recommended after age 50 but not all insurances cover it. Pneumonia vaccine is given after age 65 unless there are certain comorbidities for which it is started earlier. 7. Diagnostic labs were discussed. These could include CBC CMP and lipids with fasting blood glucose and insulin levels. Vitamin D and hemoglobin A1c testing might be appropriate. Case discussed with collaborating physician Isaura Owens who reviewed the assessment and plan. Chart, medications, labs, vital signs reviewed. Dictation was accomplished with the use of [employer] voice recognition software, prone to medical misidentifications and grammatical errors. This is unintentional and the practitioner does try to identify and correct these, but some could still be present. Please do not hesitate to contact practitioner for clarification. All questions answered to patients satisfaction. Patient verbalized understanding of diagnosis and treatments explained. To call sooner prior to next visit it any questions/concerns arise. 03/09/2025 Peripheral edema (ICD-10 - R60.9) # T2DM Patient is currently taking metformin 500 mg x 2 tabs BID and Mounjaro 10 mg weekly injection. Increase to Mounjaro 12.5 mg subcu weekly. States blood sugars have been well controlled, uses Dexcom. Awaiting HbA1C #Peripheral edema. Improved since discontinuing amlodipine. Continue Furosemide 40 mg po daily. Continue compression socks. # Obesity: BMI 44.24, Weight 317. Patient down 10 lbs since previous visit. Continue Mounjaro 10 mg. Patient denies side effects including nausea and constipation. # HTN. Asked to check at home. On Olmesartan and Metoprolol. Denies headaches. # Seasonal allergies. Takes Zyrtec. Instructed to avoid anything with decongestants. Case discussed with collaborating physician Jemma Owens who reviewed the assessment and plan. Chart, medications, labs, vital signs reviewed. Dictation was accomplished with the use of [employer] voice recognition software, prone to medical misidentifications and grammatical errors. This is unintentional and the practitioner does try to identify and correct these, but some could still be present. Please do not hesitate to contact practitioner for clarification. All questions answered to patients satisfaction. Patient verbalized understanding of diagnosis and treatments explained. To call sooner prior to next visit it any questions/concerns arise. 11/09/2024 Peripheral edema (ICD-10 - R60.9) # T2DM Patient is currently taking metformin 500 mg x 2 tabs BID and Mounjaro 10 mg weekly injection. States blood sugars have been well controlled, uses Dexcom. Reports rash from adhesive, recommended changing Dexcom site to back of the arm. #Peripheral edema. Improved since discontinuing amlodipine. Continue Furosemide 40 mg po daily. Continue compression socks. # Obesity: BMI 44.24, Weight 317. Patient down 10 lbs since previous visit. Continue Mounjaro 10 mg. Patient denies side effects including nausea and constipation. # Screenings: UTD # Vaccines: Due for tetanus and second shingles dose. Physical Men Patient seen and examined. Comprehensive discussion was done on the following. 1. Nutrition: It is important to follow a healthy diet based on lots of vegetables and legumes and good fat. Avoid processed food and processed carbohydrates. Learn to prepare your own meals. Learn to read labels and avoid high fructose corn syrup, processed chemicals added to increase shelf life and preprepared meals. Avoid fast foods. Learn to eat slowly and plan meals for a week. Try to count calories and be mindful off daily calorie intake. Get into the habit of keeping an eye on your weight by using an appropriate scale. Learn to log exercise and discussed fitness Apps like [employer] which can help keep log off calories taken versus calories burned. Local food should be preferred. Discussed [employer] Vers[employer]. Discussed healthy supplements like fish oil, Tumeric, Curcumin, Melatonin, Resveratrol, Probiotics, Vitamin-D, Alpha-Lipoic acid, Vitamin-D and coconut oil. 2. It is important to exercise regularly. Is a good habit to walk at least 30-45 minutes a day. Gentle weightlifting with standard precautions to protect the back. Finding activity like cycling or hiking and get into the habit of engaging in it. Stretching before and after the exercises important. It is also important to contact me if there are any problems like shortness of breath, chest pain, back pain and joint or muscle pain associated with the exercise. 3. Discussed age appropriate screening guidelines. Colonoscopy needs to start at age 50 with stool for occult blood as appropriate. There is a new test that can test for genetic abnormalities in the stool sample. This would not replace a colonoscopy but could be used as a screening tool for patients who do not want a colonoscopy. We discussed the importance of early detection of colon cancer. 4. Discussed current PSA screening. PSA screening can be done in most patients between age 50 and 65. However early detection of prostate cancer needs to carefully be balanced with complications with treatment. These include incontinence, impotence etc. Each patient should decide if they would like to have this test. 5. Discussed safe driving and no use of smart phone while driving 6. Age-appropriate immunizations were discussed. A tetanus booster is needed every 10 years. Flu vaccine is recommended every year just before the start of the flu season. Shingles vaccine is recommended after age 50 but not all insurances cover it. Pneumonia vaccine is given after age 65 unless there are certain comorbidities for which it is started earlier. 7. Diagnostic labs were discussed. These could include CBC CMP and lipids with fasting blood glucose and insulin levels. Vitamin D and hemoglobin A1c testing might be appropriate. Case discussed with collaborating physician Isaura Owens who reviewed the assessment and plan. Chart, medications, labs, vital signs reviewed. Dictation was accomplished with the use of [employer] voice recognition software, prone to medical misidentifications and grammatical errors. This is unintentional and the practitioner does try to identify and correct these, but some could still be present. Please do not hesitate to contact practitioner for clarification. All questions answered to patients satisfaction. Patient verbalized understanding of diagnosis and treatments explained. To call sooner prior to next visit it any questions/concerns arise. 03/09/2025 Essential hypertension (ICD-10 - I10) # T2DM Patient is currently taking metformin 500 mg x 2 tabs BID and Mounjaro 10 mg weekly injection. Increase to Mounjaro 12.5 mg subcu weekly. States blood sugars have been well controlled, uses Dexcom. Awaiting HbA1C #Peripheral edema. Improved since discontinuing amlodipine. Continue Furosemide 40 mg po daily. Continue compression socks. # Obesity: BMI 44.24, Weight 317. Patient down 10 lbs since previous visit. Continue Mounjaro 10 mg. Patient denies side effects including nausea and constipation. # HTN. Asked to check at home. On Olmesartan and Metoprolol. Denies headaches. # Seasonal allergies. Takes Zyrtec. Instructed to avoid anything with decongestants. Case discussed with collaborating physician Jemma Owens who reviewed the assessment and plan. Chart, medications, labs, vital signs reviewed. Dictation was accomplished with the use of [employer] voice recognition software, prone to medical misidentifications and grammatical errors. This is unintentional and the practitioner does try to identify and correct these, but some could still be present. Please do not hesitate to contact practitioner for clarification. All questions answered to patients satisfaction. Patient verbalized understanding of diagnosis and treatments explained. To call sooner prior to next visit it any questions/concerns arise. 08/06/2024 Encounter for immunization (ICD-10 - Z23) # T2DM Patient is currently taking metformin 1 mg x 2 tabs BID and Mounjaro 7.5 mg weekly injection. States blood sugars have been well controlled, at time of visit being at 95. Uses dexacom to track blood sugars and states majority of the time they are in range, with a few highs that he is easily able to get back down. Check POC HbA1C today-5.8! #Peripheral edema. Patient endorses bilateral lower leg edema. Echo normal. ? Due to Amlodipine. Will continue Furosemide 40 mg po daily. Dsicussed hidden sodium causing increased swelling. # Obesity: BMI 46.83, Weight 328. Patient down 10 lbs since previous visit, increase Mounjaro to 10 mg to increase appetite supression. Patient denies side effects including nausea and constipation. Case discussed with collaborating physician Isaura Owens who reviewed the assessment and plan. Chart, medications, labs, vital signs reviewed. Dictation was accomplished with the use of [employer] voice recognition software, prone to medical misidentifications and grammatical errors. This is unintentional and the practitioner does try to identify and correct these, but some could still be present. Please do not hesitate to contact practitioner for clarification. All questions answered to patients satisfaction. Patient verbalized understanding of diagnosis and treatments explained. To call sooner prior to next visit it any questions/concerns arise. 11/09/2024 Encounter for immunization (ICD-10 - Z23) # T2DM Patient is currently taking metformin 500 mg x 2 tabs BID and Mounjaro 10 mg weekly injection. States blood sugars have been well controlled, uses Dexcom. Reports rash from adhesive, recommended changing Dexcom site to back of the arm. #Peripheral edema. Improved since discontinuing amlodipine. Continue Furosemide 40 mg po daily. Continue compression socks. # Obesity: BMI 44.24, Weight 317. Patient down 10 lbs since previous visit. Continue Mounjaro 10 mg. Patient denies side effects including nausea and constipation. # Screenings: UTD # Vaccines: Due for tetanus and second shingles dose. Physical Men Patient seen and examined. Comprehensive discussion was done on the following. 1. Nutrition: It is important to follow a healthy diet based on lots of vegetables and legumes and good fat. Avoid processed food and processed carbohydrates. Learn to prepare your own meals. Learn to read labels and avoid high fructose corn syrup, processed chemicals added to increase shelf life and preprepared meals. Avoid fast foods. Learn to eat slowly and plan meals for a week. Try to count calories and be mindful off daily calorie intake. Get into the habit of keeping an eye on your weight by using an appropriate scale. Learn to log exercise and discussed fitness Apps like [employer] which can help keep log off calories taken versus calories burned. Local food should be preferred. Discussed [employer] Vers[employer]. Discussed healthy supplements like fish oil, Tumeric, Curcumin, Melatonin, Resveratrol, Probiotics, Vitamin-D, Alpha-Lipoic acid, Vitamin-D and coconut oil. 2. It is important to exercise regularly. Is a good habit to walk at least 30-45 minutes a day. Gentle weightlifting with standard precautions to protect the back. Finding activity like cycling or hiking and get into the habit of engaging in it. Stretching before and after the exercises important. It is also important to contact me if there are any problems like shortness of breath, chest pain, back pain and joint or muscle pain associated with the exercise. 3. Discussed age appropriate screening guidelines. Colonoscopy needs to start at age 50 with stool for occult blood as appropriate. There is a new test that can test for genetic abnormalities in the stool sample. This would not replace a colonoscopy but could be used as a screening tool for patients who do not want a colonoscopy. We discussed the importance of early detection of colon cancer. 4. Discussed current PSA screening. PSA screening can be done in most patients between age 50 and 65. However early detection of prostate cancer needs to carefully be balanced with complications with treatment. These include incontinence, impotence etc. Each patient should decide if they would like to have this test. 5. Discussed safe driving and no use of smart phone while driving 6. Age-appropriate immunizations were discussed. A tetanus booster is needed every 10 years. Flu vaccine is recommended every year just before the start of the flu season. Shingles vaccine is recommended after age 50 but not all insurances cover it. Pneumonia vaccine is given after age 65 unless there are certain comorbidities for which it is started earlier. 7. Diagnostic labs were discussed. These could include CBC CMP and lipids with fasting blood glucose and insulin levels. Vitamin D and hemoglobin A1c testing might be appropriate. Case discussed with collaborating physician Isaura Owens who reviewed the assessment and plan. Chart, medications, labs, vital signs reviewed. Dictation was accomplished with the use of [employer] voice recognition software, prone to medical misidentifications and grammatical errors. This is unintentional and the practitioner does try to identify and correct these, but some could still be present. Please do not hesitate to contact practitioner for clarification. All questions answered to patients satisfaction. Patient verbalized understanding of diagnosis and treatments explained. To call sooner prior to next visit it any questions/concerns arise. Plan Of Treatment Pending Test Test Name Order Date LIPID PANEL, STANDARD 04/30/2024 LIPID PANEL, STANDARD 11/05/2023 COMPREHENSIVE METABOLIC PANEL 11/05/2023 COMPREHENSIVE METABOLIC PANEL 04/30/2024 CBC (INCLUDES DIFF/PLT) 04/30/2024 CBC (INCLUDES DIFF/PLT) 11/05/2023 URINALYSIS, COMPLETE 11/05/2023 URINALYSIS, COMPLETE 04/30/2024 HEMOGLOBIN A1c 04/30/2024 HEMOGLOBIN A1c 11/19/2022 INSULIN 11/19/2022 PSA, TOTAL 11/05/2023 T4, FREE 04/30/2024 TSH 04/30/2024 TSH 11/05/2023 T3, FREE 04/30/2024 Next Appt Details Provider Name:EMILY SCOTT, 07/13/2025 03:30:00 PM, [address], [place], [address], Insurance Providers Payer Name Payer Address Payer Phone Subscriber Number Group Number Insured Name Patient Relationship to Insured Coverage Start Date Coverage End Date [facility] [address] [facility] [id number] [id number] John Mancuso Self - patient is the insured 2 Medications Administered Medication Instructions Date of Administration Dosage Notes [facility] B12 INJECTION 12/06/2022 [id number] Medical (General) History Medical History History ICD Code Morbid (severe) obesity due to excess ca lories E66.01 Essential (primary) hypertension I10 Osteoarthritis of knee, unspecified M17. 9 Hyperlipidemia, unspecified E78.5 Obstructive sleep apnea G47.33 diabetes mellitus Seasonal allergies J30.2 Surgical History Surgery Date(Month/Year) Septoplasty 2004 Left wrist tendon rupture 2004 left knee surgery ? of irreg ular rhythm that resolved- had echo, everything was fine
--- OUTSIDE RECORDS SUMMARY | 2025-06-07 15:59 | XMS_ITS ---
Author Name [facility] Organization Unknown History of Medication Use Medication Directions Dispensed Refills Start Date End Date Stat us diclofenac enteric coated (VOLTAREN) 75 MG EC tablet Take 1 tablet (75 mg total) by mouth 2 times daily (every 12 hours) as needed (pain). Administer with food avoid GI upset. 05/30/2023 active meloxicam (MOBIC) 15 MG tablet Take 1 tablet (15 mg total) by mouth daily. 05/14/2023 active aspirin enteric coated (ECOTRIN LOW STRENGTH) 81 MG EC tablet Take 1 tablet (81 mg total) by mouth 2 (two) times a day. 04/26/2023 05/27/2023 active senna-docusate (sennosides-docusate sodium) 8.6-50 MG Take 2 tablets by mouth nightly. While taking narcotics 04/26/2023 05/27/2023 active OMEprazole (PriLOSEC) 40 MG capsule Take 1 capsule (40 mg total) by mouth every morning before breakfast. 04/26/2023 active acetaminophen (TYLENOL) 500 MG tablet Take 1 tablet (500 mg total) by mouth 4 times daily (every 6 hours) as needed for mild pain. active carvedilol (COREG) 25 MG tablet Take 1 tablet (25 mg total) by mouth 2 (two) times a day with meals. active dulaglutide (Trulicity) 1.5 MG/0.5ML prefilled pen injection Inject 1.5 mg under the skin once a week. wed active multivitamin Tab tablet Take 1 tablet by mouth every morning. Vitamin c active rosuvastatin (CRESTOR) 20 MG tablet Take 1 tablet (20 mg total) by mouth nightly. active terazosin (HYTRIN) 5 MG capsule Take 1 capsule (5 mg total) by mouth nightly. active Problems Problem Status Onset Date Problem Type Date of Resolution Source Diabetes type 2, controlled active 2023-02-06 [facility] Arthritis of left knee active 2023-02-06 [facility] Morbid obesity with BMI of 45.0-49.9, adult active 2023-02-06 [facility] Abnormal EKG active 2023-02-06 [facility] Primary hypertension active 2023-02-06 ProblemAct [facility] Bilateral leg edema active 2023-02-06 ProblemAct [facility] Arthralgia of both knees active EncounterDiagnosisAct [facility] FLOR (obstructive sleep apnea) active 2023-02-06 ProblemAct [facility] Chronic bilateral low back pain without sciatica active 2023-02-06 ProblemAct [facility] Iron deficiency anemia active ProblemAct [facility] Mixed hyperlipidemia active 2023-02-06 [facility] Nocturia active 2023-02-06 ProblemAct [facility] Encounters Encounter Type Encounter Reason Primary Diagnosis Location Date Ambulatory Presence of left artificial knee joint Presence of left artificial knee joint [email or web address] 06/11/2023 Ambulatory [facility] 05/14/2023 Ambulatory Presence of left artificial knee joint [email or web address] 05/14/2023 Ambulatory Unilateral prima ry osteoarthritis, left knee [email or web address] 04/26/2023 Ambulatory Encounter for ot her preprocedural examination [email or web address] 04/01/2023 Ambulatory Unilateral prima ry osteoarthritis, left knee [email or web address] 02/06/2023 Care Team Organization Name Specialty Phone Email Start Date End Da te [email or web address] Emiliano [facility] 02/06/2023 02/15/2023 [email or web address] Edmundo [facility] 02/06/2023 02/06/2023 [email or web address] EDMUNDO OWENS [facility] 02/06/2023 [email or web address]
== END 2025-06-07 15:41 | disposition home or self-care (01) ==
PROVIDERS: PCP Internal Medicine; Visit Provider Registered Nurse Emergency
DX: J30.89 Other allergic rhinitis (principal)
CPT/HCPCS: 95117; 95165

== ENCOUNTER 2025-06-28 15:51 | Outpatient (AMB) | payer OTHER, SELFPAY ==
--- OUTSIDE RECORDS SUMMARY | 2024-11-26 06:30 | XMS_ITS ---
Author Organization [facility] Address [address] [place] [address] Care Team Providers Care Beta Tester Name Role Phone Andrea Owens Primary Care Provider Romana Valles Unavailable [phone] Encounters Encounter Location Date Provider Diagnosis [address] [address] 11/26/2024 Romana Leyva Plan Of Treatment No Information Progress Notes * Sharee MANCUSOOB:1970 ([age] yo M)Acc No.[id number]:11/26/2024 Progress Note Patient: John TIRADO Provider: Mari Leyva DPM :1970 A ge:54 Y S ex:Male Date:11/26/2024 Address:[address] [place] [address], [place] Pcp:Andrea Owens Subjective: * Chief Complaints: [...] 0 11/26/2024 Generated for Traceei kai/Jennifer/eTransmitting on: 0 06/28/2025 06:37 PM EDT
--- OUTSIDE RECORDS SUMMARY | 2025-02-22 11:45 | XMS_ITS ---
Author Organization [facility] Address [address] [place] [address] Care Team Providers Care Rocket Engine Tester Name Role Phone Andrea Owens Primary Care Provider Romana Valles Unavailable [phone] Encounters Encounter Location Date Provider Diagnosis [address] [address] 02/22/2025 Romana Leyva Plan Of Treatment No Information Progress Notes * Sharee MANCUSOOB:1970 ([age] yo M)Acc No.[id number]:02/22/2025 Progress Note Patient: John TIRADO Provider: Mari Leyva DPM :1970 A ge:54 Y S ex:Male Date:02/22/2025 Address:[address] [place] [address], [place] Pcp:Andrea Owens Subjective: * Chief Complaints: [...] 0 02/22/2025 Generated for Traceei kai/Jennifer/eTransmitting on: 0 06/28/2025 06:37 PM EDT
--- OUTSIDE RECORDS SUMMARY | 2025-04-22 12:00 | XMS_ITS ---
Author Organization [facility] Address [address] [place] [address] Care Team Providers Care Weight Engineer Name Role Phone Andrea Owens Primary Care Provider Romana Valles Unavailable [phone] Encounters Encounter Location Date Provider Diagnosis [address] [address] 04/22/2025 Romana Leyva Plan Of Treatment No Information Progress Notes * Sharee MANCUSOOB:1970 ([age] yo M)Acc No.[id number]:04/22/2025 Progress Note Patient: John TIRADO Provider: Mari Leyva DPM :1970 A ge:54 Y S ex:Male Date:04/22/2025 Address:[address] [place] [address], [place] Pcp:Andrea Owens Subjective: * Chief Complaints: * * Medical History: Objective: * Vitals: Assessment: Plan: * Treatment: * Images: * The named appointment provid er may or may not be the originator of this progress note, and it is not deemed complete until electronically signed by the appointment provider. Sign off status: Pending * Provider: Mari Leyva DPM Date: 04/22/2025 Generated for Traceei kia/Jennifer/eTransmitting on: 06/28/2025 06:38 PM EDT
--- OUTSIDE RECORDS SUMMARY | 2025-06-28 18:37 | XMS_ITS | Encounter Summary ---
Author Organization [facility] Address [address] [place] [address] Care Team Providers Care Air Route Controller Name Role Phone Abrahan Hastings MD Unavailable [phone] Andrea Owens MD Primary Care Provider [phone] Carlos Eduardo Fulton MD Unavailable [phone] Jose Jolly MD Unavailable [phone] Encounter Details Date Type Department Care Team (Late st Contact Info) Description 02/28/2023 Scanned Document [facility] [place] [facility] [address] [place] [address] Cardiology, Scan Social History Tobacco Use Types Packs/Day Years Used Date Smoking Tobacco: Never Smokeless Tobacco: Never Alcohol Use Standard Drinks/Week Comments Not Currently 0 (1 standard drink = 0.6 oz pur e alcohol) AUDIT-C Answer Date Recorded Frequency of Alcohol Consumption Not on file 02/05/2023 Q2: How many drinks containi ng alcohol do you have on a typical day when you are drinking? Patient does not drink Frequency of Binge Drinking Not on file 01/19 Sex and Gender Information Value Date Recorded [...] suspected to have Coronavirus/COVID-19? No / Unsure 02/06/2023 12:08 PM EDT documented as of this encounter Plan of Treatment Not on file documented as of this encounter Visit Diagnoses Not on filedocumented in this encounter Care Teams Air Route Controller Relationship Specialty Start Date End Date Andrea Owens MD [address] [place] [address] PCP - General Internal Medicine 02/01/23 Abrahan Hastings MD [address] [place] [address] [address] [place] [address] Surgery, Orthopedic 02/01/23 Carlos Eduardo Fulton MD [address] [place] [address] Cardiovascular Disease 03/20/23 Jose Jolly MD [address] [place] [address] [place] [address] Primary Sketch Artist Cardiovascular Disease 12/12/23 documented as of this encounter
--- OUTSIDE RECORDS SUMMARY | 2025-06-28 18:37 | XMS_ITS | Clinical Summary ---
Author Organization [facility] [place] [address] Care Team Providers Care Fringing Machine Operator Name Role Phone Andrea Owens MD Primary Care Provider [phone] Surgical History Surgery Date Site/Laterality Comments SINUS SURGERY PROCEDURE:SINUS SURGERY HAND SURGERY PROCEDURE:HAND SURGERY CARDIAC CATHETERIZATION 03/07/2023 N/A PROCEDURE:CARDIAC CATHETERIZATION;COMMENT:Procedure: LEFT HEART CATHETERIZATION; Surgeon: Ishmael Kent DO; Location: [facility]; Service: Cardiology; Laterality: N/A; CARDIAC CATHETERIZATION 03/07/2023 N/A PROCEDURE:CARDIAC CATHETERIZATION;COMMENT:Procedure: CORONARY ANGIOGRAPHY; Surgeon: Ishmael Kent DO; Location: [facility] METHODS [facility]; Service: Cardiology; Laterality: N/A; Medical History Medical History Date Comments Hyperlipidemia DX:Hyperlipidemi a Hypertension DX:Hypertension Diabetes mellitus (CMS/HCC V24, CMS/HCC V28) DX:Diabetes mellitus ([facility]) Social History Tobacco Use Types Packs/Day [...] 09/18/2022 Hypertension/CHF/CAD Annual BMP Blood Test 11/24/2023 Depression Screening 10/21/2024 COVID-19 Vaccine (1 - 2023-2 5 season) 2025 Influenza Vaccine (#1) 2025 HIB Vaccines Aged [...] age to complete this topic Care Teams Fringing Machine Operator Relationship Specialty Start Date End Date Andrea Owens MD PCP - General 02/19/23
--- OUTSIDE RECORDS SUMMARY | 2025-06-28 18:37 | XMS_ITS | Encounter Summary ---
Author Organization [facility] Address [address] [place] [address] Care Team Providers Care Stationary Equipment Mechanic Name Role Phone Abrahan Hastings MD Unavailable [phone] Andrea Ownes MD Primary Care Provider [phone] Carlos Eduardo Fulton MD Unavailable [phone] Jose Jolly MD Unavailable [phone] Encounter Details Date Type Department Care Team (Late st Contact Info) Description 03/01/2023 Scanned Document [facility] [place] [facility] [address] [place] [address] Provider, Generic Social History Tobacco Use Types Packs/Day Years [...] on file documented as of this encounter Procedures Procedure Name Priority Date/Time Associated Diagnosis Comments BOOKING SHEETS-SCAN 03/01/2023 documented in this encounter Results * BOOKING SHEETS-SCAN (03/01/2023) Narrative 03/01/2023 Ordered by an unspecified provider. us Generic Provider HX AMB PROCEDURES Final Result documented in this encounter Visit Diagnoses Not on filedocumented in this encounter Care Teams Stationary Equipment Mechanic Relationship Specialty Start Date End Date Andrea Owens MD [address] [place] [address] PCP - General Internal Medicine 02/01/23 Abrahan Hastings MD [address] [place] [address] Surgery, Orthopedic 02/01/23 Carlos Eduardo Fulton MD [address] [place] [address] Cardiovascular Disease 03/20/23 Jose Jolly MD 100 [facility] [address] [place] [address] Primary Travelift Operator Cardiovascular Disease 12/12/23 documented as of this encounter
--- OUTSIDE RECORDS SUMMARY | 2025-06-28 18:37 | XMS_ITS | Encounter Summary ---
Author Organization [facility] Address [address] [place] [address] Care Team Providers Care Portable Machine Sander Name Role Phone Abrahan Hastings MD Unavailable [phone] Andrea Owens MD Primary Care Provider [phone] Carlos Eduardo Fulton MD Unavailable [phone] Jose Jolly MD Unavailable [phone] Encounter Details Date Type Department Care Team (Late st Contact Info) Description 03/04/2023 Scanned Document [facility] [place] [facility] [address] [place] [address] Provider, Generic Social History Tobacco [...] Procedure Name Priority Date/Time Associated Diagnosis Comments LAB RESULT 03/04/2023 documented in this encounter Results * LAB RESULT (03/04/2023) Narrative 03/04/2023 Ordered by an unspecified provider. us Generic Provider HX AMB PROCEDURES Final Result documented in this encounter Visit Diagnoses Not on filedocumented in this encounter Care Teams Portable Machine Sander Relationship Specialty Start Date End Date Andrea Owens MD [address] [place] [address] PCP - General Internal Medicine 02/01/23 Abrahan Hastings MD [address] [place] [address] Surgery, Orthopedic 02/01/23 Carlos Eduardo Fulton MD [address] [place] [address] Cardiovascular Disease 03/20/23 Jose Jolly MD [address] [address] Primary Lock And Dam Operator Cardiovascular Disease 12/12/23 documented as of this encounter
--- OUTSIDE RECORDS SUMMARY | 2025-06-28 18:37 | XMS_ITS | Encounter Summary ---
Author Organization [facility] Address [address] [place] [address] Care Team Providers Care Regulatory Affairs Spec Name Role Phone Abrahan Hastings MD Unavailable Andrea Owens MD Primary Care Provider [phone] Carlos Eduardo Fulton MD Unavailable Jose Jolly MD Unavailable [phone] Reason for Visit * Reason Comments Medication Refill Encounter Details Date Type Department Care Team (Late st Contact Info) Description 08/14/2023 Refill [facility] [address] [address] Abrahan Hastings MD [address] [place] [phone] Status post total left knee replacement Social History Tobacco Use Types Packs/Day Years [...] Orientation Heterosexual (straight) 04/26 8:56 AM EDT documented as of this encounter Plan of Treatment Not on file documented as of this encounter Visit Diagnoses Diagnosis Status post total left knee replacement documented in this encounter Care Teams Regulatory Affairs Spec Relationship Specialty Start Date End Date Andrea Owens MD [address] [place] [address] PCP - General Internal Medicine 02/01/23 Abrahan Hastings MD [address] [place] [address] [address] [place] [address] Surgery, Orthopedic 02/01/23 Carlos Eduardo Fulton MD [address] [place] [address] Cardiovascular Disease 03/20/23 Jose Jolly MD 100 [facility] [address] [place] [address] Primary Senior Talent Acquisition Specialist Cardiovascular Disease 12/12/23 documented as of this encounter
--- OUTSIDE RECORDS SUMMARY | 2025-06-28 18:37 | XMS_ITS | Clinical Summary ---
Author Organization [facility] Address [address] [place] [address] Care Team Providers Care Automated Cutting Machine Operator Name Role Phone Andrea Owens MD Primary Care Provider [phone] Allergies No known active allergies Medications Medication [...] of 2) 2020 COVID-19 Vaccine (2 - 2024-2 6 season) 2025 03/11/2021 Influenza Vaccine (#1) 2025 09/11/2021 Pneumococcal Vaccine Aged Out No long er eligible based on patient's age to complete this topic RSV Ped < 20 months Aged Out No longe r eligible based on patient's age to complete this topic Insurance Payer Benefit Plan / Group Subscriber ID Effective Dates Phone Address [facility] [id number] 2018-Present [address] [facility] [address] [place] [address] HMO Advance Directives For more information, please contact: [phone] Latest Code Status on File Code Status Date Activated Date Inactivated Comments Full Code 03/07/2023 1:16 PM 03/07/2023 11:43 PM This code status was ascertained in the following way: discussion with patient . Care Teams Automated Cutting Machine Operator Relationship Specialty Start Date End Date Andrea Owens MD [address] [place] [address] PCP - General Internal Medicine 02/19/23
--- OUTSIDE RECORDS SUMMARY | 2025-06-28 18:37 | XMS_ITS | Clinical Summary ---
Author Organization [facility] Address [address] [place] [address] Care Team Providers Care Manager Respiratory Care Name Role Phone Abrahan Hastings MD Unavailable [phone] Andrea Owens MD Primary Care Provider [phone] Carlos Eduardo Fulton MD Unavailable [phone] Jose Jolly MD Unavailable [phone] Allergies No known active allergies Medications dulaglutide (Trulicity) 1.5 MG/0.5ML prefilled pen injection Inject 1.5 mg under the skin once a week. wed Active amLODIPine (NORVASC) 10 MG tablet Take 1 tablet (10 mg total) by mouth every morning after breakfast. Active carvedilol (COREG) 25 MG tablet Take 1 tablet (25 mg total) by mouth 2 (two) times a day with meals. Active terazosin (HYTRIN) 5 MG capsule Take 1 capsule (5 mg total) by mouth nightly. Active chlorthalidone (HYGROTON) 25 MG tablet Take 1 tablet (25 mg total) by mouth every evening after dinner. Active rosuvastatin (CRESTOR) 20 MG tablet Take 1 tablet (20 mg total) by mouth nightly. Active APPLE CIDER VINEGAR PO Take by mouth. Acti ve olmesartan-hydr oCHLOROthiazide (BENICAR HCT) 40-12.5 MG per tablet 1 tablet Active Continuous Blood Gluc Sensor (FreeStyle Gilda 2 Sensor) [facility] See Admin Instructions. 3 Active Continuous Blood Gluc Sensor (FreeStyle Gilda 2 Sensor) [facility] USE DIRECTED EVERY 2 WEEKS 3 Active cefadroxil (DURICEF) 500 mg capsuleIndicati ons:Arthritis of left knee Take 1 capsule (500 mg total) by mouth 2 (two) times a day. 14 capsule 3 Active HYDROmorphone (DILAUDID) 2 MG tabletIndicatio ns:Arthritis of left knee Take 1-2 tablets (2-4 mg total) by mouth Every 4 (four) to 6 (six) hours as needed for moderate pain or severe pain. Max Daily Amount: 24 mg 42 tablet 3 Active OMEprazole (PriLOSEC) 40 MG capsuleIndicati ons:Arthritis of left knee Take 1 capsule (40 mg total) by mouth every morning before breakfast. 14 capsule 3 Active methocarbamol (ROBAXIN) 750 MG tabletIndicatio ns:Arthritis of left knee Take 1 tablet (750 mg total) by mouth 4 (four) times a day as needed for muscle spasms. 60 tablet 3 Active senna-docusate (sennosides-doc usate sodium) 8.6-50 MGIndications:A rthritis of left knee Take 2 tablets by mouth nightly. While taking narcotics 60 tablet 3 Active aspirin enteric coated (ECOTRIN LOW STRENGTH) 81 MG EC tabletIndicatio ns:Arthritis of left knee Take 1 tablet (81 mg total) by mouth 2 (two) times a day. 60 tablet 3 Active acetaminophen (TYLENOL) 500 MG tabletIndicatio ns:Arthritis of left knee Take 2 tablets (1,000 mg total) by mouth 4 times daily (every 6 hours) as needed for mild pain. 112 tablet 3 Active meloxicam (MOBIC) 15 MG tabletIndicatio ns:Status post total left knee replacement Take 1 tablet (15 mg total) by mouth daily. 90 tablet 3 Active diclofenac enteric coated (VOLTAREN) 75 MG EC tabletIndicatio ns:Arthralgia, unspecified joint Take 1 tablet (75 mg total) by mouth 2 times daily (every 12 hours) as needed (pain). Administer with food avoid GI upset. 90 tablet 1 3 Active celeCOXIB (CeleBREX) 200 MG capsuleIndicati ons:Arthralgia of both knees Take 1 capsule (200 mg total) by mouth 2 (two) times a day. 120 capsule 3 Active olmesartan (BENICAR) 40 MG tablet Take 1 tablet (40 mg total) by mouth nightly. 03/01/20 Discontin ued(Patie nt Discharge ) multivitamin Tab tablet Take 1 tablet by mouth every morning. Vitamin c 03/01/20 Discontin ued(Patie nt Discharge ) Active Problems Problem Noted Date Diagnosed Date Arthritis of left knee 02/06/2023 Assessment & Plan (04/01/2023 10:02 AM EDT): Plan for left knee replacement with Dr. Hastings on 04/26/23. Assessment & Plan (02/06/2023 12:18 PM EDT): Planned surgery with Dr. Hastings on 03-04-23 for TKA left Primary hypertension 02/06/2023 Assessment & Plan (04/01/2023 10:04 AM EDT): ? Controlled, continue amlodipine & coreg. Patient instructed to hold chlorthalidone the day of surgery. Assessment & Plan (02/06/2023 12:19 PM EDT): Continue current medications - coreg, benicar and Norvasc as prescribed. Monitor perioperative per hospital protocol Mixed hyperlipidemia 02/06/2023 Assessment & Plan (04/01/2023 10:02 AM EDT): Continue crestor. Assessment & Plan (02/06/2023 12:19 PM EDT): Continue on crestor as pescribed Morbid obesity with BMI of 45.0-49.9, adult 01/19 Assessment & Plan (04/01/2023 10:02 AM EDT): Patient instructed to discuss lifestyle changes with PCP & Dr. Abrahan Hastings MD aware. Assessment & Plan (02/06/2023 12:20 PM EDT): Weight loss recommended, reviewed importance of good nutrition with protein in diet for upcoming surgery FLOR (obstructive sleep apnea) 02/06/2023 Assessment & Plan (04/01/2023 10:04 AM EDT): ? CPAP Chronic bilateral low back pain without sciatica 02/06/2023 Nocturia 02/06/2023 Bilateral leg edema 02/06/2023 Assessment & Plan (04/01/2023 10:04 AM EDT): Patient instructed to hold chlorthalidone & terzosin the day of surgery. Abnormal EKG 02/06/2023 Diabetes type 2, controlled 02/06/2023 Assessment & Plan (04/01/2023 10:21 AM EDT): New A1c pending, continue Trulicity weekly. Iron deficiency anemia Assessment & Plan (04/01/2023 10:19 AM EDT): Patient counseled to start iron with vitamin c supplement, plus stool softener. Patient's PCP contacted to arrange GI consult as patient taking NSAIDs. Family History Medical History Relation Name Comments Crohn's disease Brother Asthma Daughter Ovarian cysts Daughter ALS Father Prostate cancer Father Colon cancer Mother Diabetes Mother Hypertension Mother Lupus Sister 1 Graves' disease Sister 2 Breast cancer Sister 3 Relation Name Status Comments Brother Alive Daughter Father Mother Alive Sister 1 Alive Sister 2 Alive Sister 3 Alive Social History Tobacco Use Types Packs/Day Years Used Date Smoking Tobacco: Never Smokeless Tobacco: Never Tobacco Cessation:Counseling Given: [...] Orientation Heterosexual (straight) 04/26 8:56 AM EDT Last Filed Vital Signs Vital Sign Reading Time Taken Comments Blood Pressure 135/75 04/27/2023 10:00 AM EDT Pulse 75 04/27/2023 10:00 AM EDT Temperature 35.9 C (96.7 F) 04/27/2023 10:00 AM EDT Respiratory Rate 16 04/27/2023 10:00 AM EDT Oxygen Saturation 94% 04/27/2023 9:36 AM EDT Inhaled Oxygen Concentration - - Weight 154 kg (340 lb) 04/01/2023 1:31 PM EDT Height 181.6 cm (5' 11.5 ) 04/01/2023 1:31 PM ED T Body Mass Index 46.76 04/01/2023 1:31 PM EDT Plan of Treatment Health Maintenance Due Date Last Done Comments Hepatitis C Virus Screening 1970 Foot Exam 1980 Lipid Panel 1980 Ophthalmology Exam 1980 HIV Screening 1983 Microalbumin/Creatinine Ratio Urine 1988 DTaP/Tdap/Td Vaccines (1 - Tdap) 1989 Hepatitis B Vaccines (1 of 3 - 19+ 3-dose series) 10/21 Pneumococcal Vaccines 50+ (1 of 2 - PCV) 1989 Colonoscopy 2015 Zoster (Shingles) Vaccine (1 of 2) 2020 Hemoglobin A1C 08/08/2023 02/06/2023 Creatinine with GFR 02/07/2024 02/06/2023 COVID-19 Vaccine (2 - season) 2024 Influenza Vaccine 05/21/2025 09/11/2021 Medical Devices Implanted Type Area Manager Maintenance Device Identifier Shelf Expiration Date Model / Serial / Lot [id number] Oval 38mm Porous Patella Implanted:Qty: 1 on 04/26/2023 by Abrahan Hastings MD at [facility] Left: Knee 08/27/2029 / / [id number] Tibial Baseplate 7 Left Implanted:Qty: 1 on 04/26/2023 by Abrahan Hastings MD at [facility] Left: Knee 02/20/2032 / [id number] Femur Cr 6 Left Implanted:Qty: 1 on 04/26/2023 by Abrahan Hastings MD at [facility] Left: Knee 07/18/2031 / [id number] Legion 11mm Hf Insert Implanted:Qty: 1 on 04/26/2023 by Abrahan Hastings MD at [facility] Left: Knee 01/13/2032 / [id number] Procedures Procedure Name Priority Date/Time Associated Diagnosis Comments HEMOGLOBIN A1C WITH ESTIMATED AVERAGE GLUCOSE Routine 02/06/2023 2:09 PM EDT Arthritis of left knee Preop examination Primary hypertension Mixed hyperlipidemia Morbid obesity with BMI of 45.0-49.9, adult (HCC) BASIC METABOLIC PANEL Routine 02/06/2023 2:09 PM EDT Arthritis of left knee Preop examination Primary hypertension Mixed hyperlipidemia Morbid obesity with BMI of 45.0-49.9, adult ([facility]) from Last 3 Months or Most Recently Relevant to Health Maintenance Results * (ABNORMAL) Hemoglobin A1c with Estimated Average Glucose (02/06/2023 2:09 PM EDT) Hemoglobin A1C 6.1(H) <5.7 % 02/06/2023 8:55 PM EDT [facility] Comment: A1c% Interpretation 5.7 - 6.0 Increase risk of diabetes 6.1 - 6.4 Higher risk of diabetes > or = 6.5 Consistent with diabetes Diabetes Care, 33(Supp 1):S1-S61, 2010 Estimated Average Glucose 128 mg/dL 02/06/2023 8:55 PM EDT [facility] Blood specimen (specimen) Blood specimen / Unknown 02/06/2023 2:09 PM EDT 02/06/2023 8:26 PM EDT [facility] BLOOD ORDERABLES Fi nal Result HOSPITAL LAB See Below [facility] [address] [place] [address] * (ABNORMAL) Basic Metabolic Panel (02/06/2023 2:09 PM EDT) Glucose 116(H) 65 - 99 mg/dL 02/06/2023 8:59 PM EDT [facility] Comment:Fasting: <100 mg/dL, Non-Fasting: <200 mg/dL (ADA 2005) Blood Urea Nitrogen (BUN) 12 8 - 21 mg/dL 02/06/2023 8:59 PM EDT [facility] Creatinine 1.0 0.5 - 1.3 mg/dL 02/06/2023 8:59 PM EDT [facility] eGFR >90 >59 02/06/2023 8:59 PM T [facility] Comment: CKD-EPI (2020) in mL/min/1.73 sq meters. Reported eGFR is based on the CKD-EPI equation that does not use a race coefficient as of 12/25/2022 Sodium 140 136 - 145 mmol/L 02/06/2023 8:59 PM EDT [facility] Potassium 3.9 3.4 - 5.3 mmol/L 02/06/2023 8:59 PM EDT [facility] Chloride 105 98 - 107 mmol/L 02/06/2023 8:59 PM EDT [facility] CO2 29 22 - 33 mmol/L 02/06/2023 8:59 PM EDT [facility] Anion Gap 6(L) 7 - 17 02/06/2023 8:59 PM EDT [facility] Calcium 8.7 8.7 - 10.5 mg/dL 02/06/2023 8:59 PM EDT [facility] BUN/Creatinine Ratio 12 10.0 - 25.0 Ratio 02/06/2023 8:59 PM T [facility] Blood specimen (specimen) (Plasma/Serum) 02/06/2023 2:09 PM EDT 02/06/2023 8:26 PM EDT [facility] BLOOD ORDERABLES Fi nal Result HOSPITAL LAB See Below [address] [address] from Last 3 Months or Most Recently Relevant to Health Maintenance Insurance [facility] Advance Directives * Full Code (Latest Code Status on File) Date Activated Date Inactivated Comments 04/26/2023 3:48 PM * Full Code Date Activated Date Inactivated Comments 04/26/2023 8:41 AM 04/26/2023 3:48 PM Care Teams Manager Respiratory Care Relationship Specialty Start Date End Date Andrea Owens MD [address] [place] [id number] PCP - General Internal Medicine 02/01/23 Abrahan Hastings MD [address] [facility] [address] [place] [address] Surgery, Orthopedic 02/01/23 Carlos Eduardo Fulton MD [address] [place] [address] Cardiovascular Disease 03/20/23 Jose Jolly MD [address] [place] [address] Primary Supply Tech Cardiovascular Disease 12/12/23
--- OUTSIDE RECORDS SUMMARY | 2025-06-28 18:37 | XMS_ITS | Patient Health Record ---
Author Organization [facility] Address [address] [place] [address] Care Team Providers Care Language Asst Name Role Phone EMILY SCOTT Unavailable [phone] Allergies No Known Allergies Results Component Value Reference Range Notes T3, FREE Reviewed date:03/11/2025 08:16:11 AM Interpretation: Performing Lab:NL2, [facility] [employer] [facility] [phone] Ricardo Rhoades Notes/Report: FASTING:YES FASTING: YES T3, FREE 3.2 2.3-4.2 pg/mL TSH Reviewed date:03/11/2025 08:16:11 AM Interpretation: Performing Lab:NL2, [facility] [employer] [facility] [id number] iRcardo Rhoades Notes/Report: FASTING:YES FASTING: YES TSH 0.95 0.40-4.50 mIU/L T4, FREE Reviewed date:03/11/2025 08:16:11 AM Interpretation: Performing Lab:NL2, [employer] [place] [facility] [place], [place] [phone] Ricardo Rhoades Notes/Report: FASTING:YES FASTING: YES T4, FREE 1.1 0.8-1.8 ng/dL HEMOGLOBIN A1c Reviewed date:03/11/2025 08:14:47 AM Interpretation: Performing Lab:NL2, [facility] [employer] [facility] [place], [place] [phone] Ricardo Rhoades Notes/Report: FASTING:YES FASTING: YES HEMOGLOBIN A1c [...] copy faxed has been acknowledged. Queued to: [id number] URINALYSIS, COMPLETE Reviewed date:03/11/2025 08:16:11 AM Interpretation: Performing Lab:NL2, [facility] [employer] [facility] Ricardo Rhoades Notes/Report: FASTING:YES FASTING: YES [...] elements. Only those elements seen were reported. CBC (INCLUDES DIFF/PLT) Reviewed date:03/11/2025 08:15:45 AM Interpretation: Performing Lab:NL2, [facility] [employer] [facility] Ricardo Rhoades Notes/Report: FASTING:YES FASTING: YES WHITE BLOOD CELL [...] MPV 11.2 7.5-12.5 fL ABSOLUTE NEUTROPHILS 2265 [phone] cells/uL ABSOLUTE LYMPHOCYTES 8517 367-1859 cells/uL ABSOLUTE MONOCYTES 616 200-950 cells/uL ABSOLUTE EOSINOPHILS 61 15-500 cells/uL ABSOLUTE BASOPHILS 19 0-200 cells/uL NEUTROPHILS 48.2 LYMPHOCYTES 37.0 MONOCYTES 13.1 EOSINOPHILS 1.3 BASOPHILS 0.[address] METABOLIC PANE L Reviewed date:03/11/2025 08:16:11 AM Interpretation: Performing Lab:NL2, [facility] [employer] [facility] Ricardo Rhoades Notes/Report: FASTING:YES FASTING: YES GLUCOSE [...] 17 10-35 U/L ALT 15 9-46 U/L LIPID PANEL, STANDARD Reviewed date:03/11/2025 08:15:51 AM Interpretation: Performing Lab:NL2, [facility] [employer] [facility] Ricardo Rhoades Notes/Report: FASTING:YES FASTING: YES CHOLESTEROL, TOTAL 120 <200 mg/dL HDL CHOLESTEROL 34 > OR = 40 mg/dL TRIGLYCERIDES 98 <150 mg/dL LDL-CHOLESTEROL 68 Reference range: <100 Desirable range <100 mg/dL for primary prevention; <70 mg/dL for patients with CHD or diabetic patients with > or = 2 CHD risk factors. LDL-C is now calculated using the Ld calculation, which is a validated novel method providing better accuracy than the Friedewald equation in the estimation of LDL-C. Mark SS et al. VANESSA. 2013;310(14): 0634-0169 (http://education.AxoGen.Track the Bet/faq/CJD166) CHOL/HDLC RATIO 3.5 <5.0 (calc) NON HDL CHOLESTEROL 86 <130 mg/dL (calc) For patients with diabetes plus 1 major ASCVD risk factor, treating to a non-HDL-C goal of <100 mg/dL (LDL-C of <70 mg/dL) is considered a therapeutic option. Reason For Referral No Information Medications Medication SIG (Take, Route, Frequency, Duration) Notes Start Date End Date Status Mounjaro 12.5 MG/0.5ML 12.5 mg Subcutane ous weekly; Duration: 30 days 03/09/2025 Active Dexcom G6 Sensor - APPLY ONE SENSOR SUBCUTANEOUSLY EVERY 10 DAYS; Duration: 30 Active Mounjaro 10 MG/0.5ML INJECT 10 MG UNDER THE SKIN ONE DAY A WEEK; Duration: 28 Active metFORMIN HCl ER 500 MG TAKE 2 TABLETS B Y MOUTH TWICE DAILY; Duration: 30 Active CeleBREX 200 MG 1 capsule with food Orally Once a day Active Dexcom G6 Job Development Specialist - as directed; Durati on: 30 days 11/01/2023 Active Dexcom G6 Transmitter - apply one sensor subcutaneously every 10 days for DX E11.9; Duration: 30 days Active Prazosin HCl 5 MG TAKE 1 CAPSULE BY MO UTH DAILY AT BEDTIME; Duration: 90 Active Furosemide 40 MG TAKE 1 TABLET BY LUIZA DAILY; Duration: 90 Active Carvedilol 25 MG TAKE 1 TABLET BY LUIZA TH TWICE DAILY WITH FOOD; Duration: 90 Active Olmesartan Medoxomil 40 MG 1 tablet [...] Status Risk Notes Problem Vitamin D deficiency (83551136) Vitamin D deficiency, unspecified (E55.9) Active confirmed Problem Essential hypertension (54519726) Essential (primary) hypertension (I10) Active confirmed Problem Excessive thirst (63682681) Polydipsia (R63.1) Active confirmed Problem Screening for malignant neoplasm of prostate (257908197) Encounter for screening for malignant neoplasm of prostate (Z12.5) Active confirmed Problem Endocrine/metabolic screening (083066058) Encounter for screening for other suspected endocrine disorder (Z13.29) Active confirmed Problem Screening procedure (06229228) Encounter for screening, unspecified (Z13.9) Active confirmed Problem Essential hypertension (24259622) Essential hypertension (I10) Active confirmed Problem Morbid obesity (043747065) Morbid obesity (E66.01) Active confirmed Problem Backache (754310901) Back pain, unspecified back location, unspecified back pain laterality, unspecified chronicity (M54.9) Active confirmed Problem Pure hypercholesterolemia (536999626) Pure hypercholesterolemia (E78.00) Active confirmed Problem Acquired hypothyroidism (529280400) Acquired hypothyroidism (E03.9) Active confirmed Problem Hyperlipoproteinemia (8224440) Acquired hyperlipoproteinemia (E78.5) Active confirmed Problem Seasonal allergy (335043631) Seasonal allergies (J30.2) Active confirmed Problem Type II diabetes mellitus without complication (508557618) Type 2 diabetes mellitus without complication, without long-term current use of insulin (E11.9) Active confirmed Problem Dyslipidemia (149262436) Dyslipidemia (E78.5) Active confirmed Problem Obstructive sleep apnea (82238423) Obstructive sleep apnea (G47.33) Active confirmed Problem Hyperglycemia due to type 2 diabetes mellitus (340466188855293) Poorly controlled diabetes mellitus (E11.65) Active confirmed Problem Body mass index 40+ - severely obese (096467151) BMI 45.0-49.9, adult (Z68.42) Active confirmed Vital Signs Heart Rate 97 /min 03/09/2025 Blood pressure diastolic 96 mm Hg 03/09/2025 Oximetry 98 % 03/09/2025 Height 71 in 03/09/2025 Blood pressure systolic 144 mm Hg 03/09/2025 Weight 324.2 lbs 03/09/2025 BMI 45.21 kg/m2 03/09/2025 Encounters Encounter Location Date Provider Diagnosis [facility] [address] [facility] [address] [place] [address] [place] [phone] 03/17/2025 EMILY SCOTT [facility] [address] [place] [address] 08/06/2024 EMILY SCOTT Dyslipidemia E78.5 ; Type 2 diabetes mellitus without complication, without long-term current use of insulin E11.9 ; Acquired hypothyroidism E03.9 ; Peripheral edema R60.9 and Encounter for immunization Z23 [facility] [address] [place] [address] 03/09/2025 EMILY SCOTT Type 2 diabetes deanne itus without complication, without long-term current use of insulin E11.9 ; Dyslipidemia E78.5 ; Acquired hypothyroidism E03.9 ; Peripheral edema R60.9 and Essential hypertension I10 [facility] [address] [place] [address] 11/09/2024 EMILY SCOTT Type 2 diabetes deanne itus without complication, without long-term current use of insulin E11.9 ; Annual physical exam Z00.00 ; Dyslipidemia E78.5 ; Acquired hypothyroidism E03.9 ; Peripheral edema R60.9 and Encounter for immunization Z23 Assessments Encounter Date Diagnosis (ICD Code) Assessment [...] constipation. Case discussed with collaborating physician Isaura Ownes who reviewed the assessment and plan. Chart, medications, labs, vital signs reviewed. Dictation was accomplished with the use of makr voice recognition software, prone to medical misidentifications [...] Dictation was accomplished with the use of makr voice recognition software, prone to medical misidentifications [...] log exercise and discussed fitness Apps like Venuu which can help keep log off calories [...] Dictation was accomplished with the use of makr voice recognition software, prone to medical misidentifications [...] log exercise and discussed fitness Apps like Venuu which can help keep log off calories [...] Dictation was accomplished with the use of makr voice recognition software, prone to medical misidentifications [...] Dictation was accomplished with the use of makr voice recognition software, prone to medical misidentifications [...] Dictation was accomplished with the use of makr voice recognition software, prone to medical misidentifications [...] Dictation was accomplished with the use of makr voice recognition software, prone to medical misidentifications [...] log exercise and discussed fitness Apps like Venuu which can help keep log off calories [...] Dictation was accomplished with the use of makr voice recognition software, prone to medical misidentifications [...] Dictation was accomplished with the use of makr voice recognition software, prone to medical misidentifications [...] Dictation was accomplished with the use of makr voice recognition software, prone to medical misidentifications [...] log exercise and discussed fitness Apps like Venuu which can help keep log off calories [...] Dictation was accomplished with the use of makr voice recognition software, prone to medical misidentifications [...] Dictation was accomplished with the use of makr voice recognition software, prone to medical misidentifications [...] log exercise and discussed fitness Apps like Venuu which can help keep log off calories [...] Dictation was accomplished with the use of makr voice recognition software, prone to medical misidentifications [...] Dictation was accomplished with the use of makr voice recognition software, prone to medical misidentifications [...] log exercise and discussed fitness Apps like Venuu which can help keep log off calories [...] Dictation was accomplished with the use of makr voice recognition software, prone to medical misidentifications [...] Test Name Order Date LIPID PANEL, STANDARD 11/05/2023 LIPID PANEL, STANDARD 04/30/2024 COMPREHENSIVE METABOLIC PANEL 04/30/2024 COMPREHENSIVE METABOLIC PANEL 11/05/2023 CBC (INCLUDES DIFF/PLT) 11/05/2023 CBC (INCLUDES DIFF/PLT) 04/30/2024 URINALYSIS, COMPLETE 11/05/2023 URINALYSIS, COMPLETE 04/30/2024 HEMOGLOBIN A1c 11/19/2022 HEMOGLOBIN A1c 04/30/2024 INSULIN 11/19/2022 PSA, TOTAL 11/05/2023 T4, FREE 04/30/2024 TSH 11/05/2023 TSH 04/30/2024 T3, FREE 04/30/2024 Next Appt Details Provider Name:EMILY SCOTT, 07/13/2025 03:30:00 PM, [address], [place], [address], Insurance Providers Payer Name Payer Address Payer Phone Subscriber Number Group Number Insured Name Patient Relationship to Insured Coverage Start Date Coverage End Date [facility] [address] [facility] [id number] John Mancuso Self - patient is the insured 2 Medications Administered Medication Instructions Date of Administration Dosage Notes [facility] B12 INJECTION 12/06/2022 [id number] Medical (General) [...]
--- OUTSIDE RECORDS SUMMARY | 2025-06-28 18:37 | XMS_ITS | Encounter Summary ---
Author Organization [facility] Address [address] [place] [address] Care Team Providers Care Event Planning Intern Name Role Phone Abrahan Hastings MD Unavailable [phone] Andrea Owens MD Primary Care Provider [phone] Carlos Eduardo Fulton MD Unavailable [phone] Jose Jolly MD Unavailable [phone] Encounter Details Date Type Department Care Team (Late st Contact Info) Description 03/01/2023 Scanned Document [facility] [address] [place] [address] Cardiology, Scan Social History Tobacco [...] on filedocumented in this encounter Care Teams Event Planning Intern Relationship Specialty Start Date End Date Andrea Owens MD [address] [place] [address] PCP - General Internal Medicine 02/01/23 Abrahan Hastings MD [address] [place] [address] [address] [place] [address] Surgery, Orthopedic 02/01/23 Carlos Eduardo Fulton MD [address] [place] [address] Cardiovascular Disease 03/20/23 Jose Jolly MD [address] [place] [address] [place] [address] Primary Thread Drawer Cardiovascular Disease 12/12/23 documented as of this encounter
--- OUTSIDE RECORDS SUMMARY | 2025-06-28 18:37 | XMS_ITS | Encounter Summary ---
Author Organization [facility] Address [address] [place] [address] Care Team Providers Care Hand Coke Drawer Name Role Phone Abrahan Hastings MD Unavailable Andrea Owens MD Primary Care Provider [phone] Carlos Eduardo Fulton MD Unavailable Jose Jolly MD Unavailable [phone] Encounter Details Date Type Department Care Team (Late st Contact Info) Description 04/26/2023 Scanned Document [facility] [address] [address] Abrahan Hastings MD [address] [place] [address] [id number] Social History Tobacco Use Types Packs/Day Years [...] on filedocumented in this encounter Care Teams Hand Coke Drawer Relationship Specialty Start Date End Date Andrea Owens MD [address] [place] [address] PCP - General Internal Medicine 02/01/23 Abrahan Hastings MD [address] [place] [address] Surgery, Orthopedic 02/01/23 Carlos Eduardo Fulton MD [address] [place] [address] Cardiovascular Disease 03/20/23 Jose Jolly MD [address] [place] [address] Primary Application Development Consultant Cardiovascular Disease 12/12/23 documented as of this encounter
--- OUTSIDE RECORDS SUMMARY | 2025-06-28 18:37 | XMS_ITS | Encounter Summary ---
Author Organization [facility] Address [address] [place] [address] Care Team Providers Care Social Media Content Specialist Name Role Phone Abrahan Hastings MD Unavailable [phone] Andrea Owens MD Primary Care Provider [phone] Carlos Eduardo Fulton MD Unavailable [phone] Jose Jolly MD Unavailable [phone] Encounter Details Date Type Department Care Team (Late st Contact Info) Description 03/04/2023 Scanned Document [facility] [place] at [facility] [address] [place] [address] Provider, Generic Social History Tobacco [...] on filedocumented in this encounter Care Teams Social Media Content Specialist Relationship Specialty Start Date End Date Andrea Owens MD [address] [place] [address] PCP - General Internal Medicine 02/01/23 Abrahan Hastings MD [address] [place] [address] Surgery, Orthopedic 02/01/23 Carlos Eduardo Fulton MD [address] [place] [address] Cardiovascular Disease 03/20/23 Jose Jolly MD [address] [address] Primary Marine Painter Cardiovascular Disease 12/12/23 documented as of this encounter
--- OUTSIDE RECORDS SUMMARY | 2025-06-28 18:38 | XMS_ITS | Patient Health Record ---
Author Organization [facility] Address [address] [place] [address] Care Team Providers Care Axle Polisher Name Role Phone Owens, Andrea Primary Care Provider Romana Valles Unavailable [phone] Allergies No Known Allergies Results Component Value Reference Range Notes HEMOGLOBIN A1C (GLYCOHEMOGLO BIN) Reviewed date:05/13/2025 02:10:08 PM Interpretation: Performing Lab: Notes/Report: HEMOGLOBIN A1C % (HH) 5.9 Reason For Referral No Information Medications Medication SIG (Take, Route, Frequency, Duration) Notes Start Date End Date Status Carvedilol 25 MG 1 tablet with food Orally Twice a day; Duration: 30 day(s) Active Diflucan 200 MG 1 tablet Orally once daily; Duration: 10 days 05/29/2024 Not-Taking Celecoxib 200 MG 1 capsule with food Orally Once a day; Duration: 30 day(s) Active amLODIPine Besylate 10 MG 1 tablet Orall y Once a day; Duration: 30 day(s) Not-Taking Ciclopirox Olamine 0.77 % 1 application to affected area Externally Twice a day to effected areas on feet; Duration: 30 days 05/29/2024 Not-Taki ng metFORMIN HCl 500 MG 1 tablet with a malu l Orally Once a day; Duration: 30 day(s) Active Fluticasone Furoate 50 MCG/ACT 1 puff Inhalation Once a day Not-Taking Furosemide 40 MG 1 tablet Orally Once a day; Duration: 30 day(s) Active LamISIL 250 MG 1 tablet Orally Once a day; Duration: 30 days Active Ketoconazole 2 % 1 application Apply a thin layer of cream externally Twice a day to scaling areas on feet including between the toes; Duration: 30 days 05/13/2025 Active Rosuvastatin Calcium 20 MG 1 tablet Orally Once a day; Duration: 30 day(s) Active Olmesartan Medoxomil 40 MG 1 tablet Orally Once a day; Duration: 30 day(s) Active Prazosin HCl 5 MG 1 capsule at bedtime Orally Once a day; Duration: 30 day(s) Active Immunizations Vaccine Route Administration Date Status Comme nts Influenza Unknown 08/13/2024 Administered Social History Tobacco Use: Social History Observation Description Date Details (start date - stop date) Never Smoker NA - NA Tobacco use other than smoking: Question Answer Notes Are you an other tobacco user? No Tobacco Control (Standard) Question Answer Notes Tobacco use: Nonsmoker Additional Findings: Tobacco non-user Current no nsmoker AUDIT-C (Standard) Question Answer Notes Did you have a drink containing alcohol in the p ast year? No Points 0 Interpretation Negative Problems Problem Type SNOMED Code ICD Code Onset Dates Problem Status W/U Status Risk Notes Problem Acquired hammer toe of lesser toe of right foot (5345456446878694 8) Other hammer toe(s) (acquired), right foot (M20.41) Active confirmed Problem Acquired hammer toe of lesser toe of left foot (0362305261230095 3) Other hammer toe(s) (acquired), left foot (M20.42) Active confirmed Problem Polyneuropathy due to type 2 diabetes mellitus (794315302) Type 2 diabetes mellitus with diabetic polyneuropathy (E11.42) Active confirmed Vital Signs Blood pressure diastolic 70 mm Hg 05/13/2025 Height 6ft in 05/13/2025 Blood pressure systolic 140 mm Hg 05/13/2025 Weight 315 lbs 05/13/2025 BMI 42.72 kg/m2 05/13/2025 Encounters Encounter Location Date Provider Diagnosis [facility] [address] [place] [address] 12/14/2024 Romana Leyva Onychomycosis B35.1 ; Type 2 diabetes mellitus with diabetic polyneuropathy E11.42 ; Tinea pedis of both feet B35.3 ; Other hammer toe(s) (acquired), right foot M20.41 and Other hammer toe(s) (acquired), left foot M20.42 [facility] [address] [place] [address] 05/13/2025 Romana Leyva Onychomycosis B35.1 ; Type 2 diabetes mellitus with diabetic polyneuropathy E11.42 and Tinea pedis of both feet B35.3 [facility] [address] [address] 11/26/2024 Romana Perica [facility] [address] 12/22/2024 [facility] [address] [place] [address] 02/19/2025 Romana Perica [facility] [address] [place] [address] 04/20/2025 Romana Perica [address] [address] 05/13/2025 Romana Leyva Assessments Encounter Date Diagnosis (ICD Code) Assessment Notes Treatment Notes Treatment Clinical Notes Section Notes 12/14/2024 Type 2 diabetes mellitus with diabetic polyneuropathy (ICD-10 - E11.42) 12/14/2024 Onychomycosis (ICD-10 - B35.1) 05/13/2025 Type 2 diabetes mellitus with diabetic polyneuropathy (ICD-10 - E11.42) 05/13/2025 Onychomycosis (ICD-10 - B35.1) 05/13/2025 Tinea pedis of both feet (ICD-10 - B35.3) 12/14/2024 Tinea pedis of both feet (ICD-10 - B35.3) 12/14/2024 Other hammer toe(s) (acquired), right foot (ICD-10 - M20.41) 12/14/2024 Other hammer toe(s) (acquired), left foot (ICD-10 - M20.42) Plan Of Treatment Pending Test Test Name Order Date *Liver Function Test (LFT) 10/09/2013 *Liver Function Test (LFT) 09/02/2018 *Liver Function Test (LFT) 05/29/2024 *Liver Function Test (LFT) 12/14/2024 *Liver Function Test (LFT) 05/13/2025 [id number] Plate 09/02/2018 [id number] 04/30/2014 31074- Debride <25 sq cm 06/15/2014 46889- Debride <25 sq cm 10/30/2013 [id number] SKIN/TISSUE 05/19/2014 25644 I&D ABSCESS- SIMPLE,SINGLE 015 95650 I&D ABSCESS- SIMPLE,SINGLE 014 95678 I&D ABSCESS- SIMPLE,SINGLE 013 37111-SYQI SKIN LESIONS, OVER 4 05/29/20 24 46015- Nail Unit Biopsy 09/02/2018 Insurance Providers Payer Name Payer Address Payer Phone Subscriber Number Group Number Insured Name Patient Relationship to Insured Coverage Start Date Coverage End Date [facility] [address] [place] [address] [phone] [id number] John Mancuso Self - patient is the insured Medical (General) History Medical History History ICD Code Anemia Back,Hip,and Knee pain covid-19 Diabetic high blood pressure Surgical History Surgery Date(Month/Year) left wrist surgery nasal surgery knee surgery 04/12
--- OUTSIDE RECORDS SUMMARY | 2025-06-28 18:38 | XMS_ITS | Encounter Summary ---
Author Organization [facility] Address [address] [place] [address] Care Team Providers Care Senior Marketing Associate Name Role Phone Abrahan Hastings MD Unavailable [phone] Andrea Owens MD Primary Care Provider [phone] Carlos Eduardo Fulton MD Unavailable Jose Jolly MD Unavailable Encounter Details Date Type Department Care Team (Late st Contact Info) Description 03/04/2023 Erroneous Encounter [facility] [address] [facility] [place] [address] Hiram Paz MD [address] [place] [address] Social History Tobacco Use Types Packs/Day Years [...] on filedocumented in this encounter Care Teams Senior Marketing Associate Relationship Specialty Start Date End Date Andrea Owens MD [address] [place] [address] PCP - General Internal Medicine 02/01/23 Abrahan Hastings MD [address] [place] [address] Surgery, Orthopedic 02/01/23 Carlos Eduardo Fulton MD [address] [place] [address] Cardiovascular Disease 03/20/23 Jose Jolly MD [address] [place] [address] Primary Small Business Consultant Cardiovascular Disease 12/12/23 documented as of this encounter
--- OUTSIDE RECORDS SUMMARY | 2025-06-28 18:38 | XMS_ITS | Encounter Summary ---
Author Organization [facility] Address [address] [place] [address] Care Team Providers Care Multi Sensor Operator Name Role Phone Abrahan Hastings MD Unavailable [phone] Andrea Owens MD Primary Care Provider [phone] Carlos Eduardo Fulton MD Unavailable [phone] Jose Jolly MD Unavailable [phone] Encounter Details Date Type Department Care Team (Late st Contact Info) Description 03/04/2023 Scanned Document [facility] [place] at [facility] [address] [place] [address] Provider, Generic Social History Tobacco [...] on filedocumented in this encounter Care Teams Multi Sensor Operator Relationship Specialty Start Date End Date Andrea Owens MD [address] [place] [address] PCP - General Internal Medicine 02/01/23 Abrahan Hastings MD [address] [place] [address] Surgery, Orthopedic 02/01/23 Carlos Eduardo Fulton MD [address] [place] [address] Cardiovascular Disease 03/20/23 Jose Jolly MD [address] [address] Primary Corn Cooker Cardiovascular Disease 12/12/23 documented as of this encounter
== END 2025-06-28 15:53 | disposition home or self-care (01) ==
LOC: HO.HMGAL 15:51
PROVIDERS: PCP Internal Medicine; Visit Provider Registered Nurse Emergency
DX: J30.89 Other allergic rhinitis (principal)
CPT/HCPCS: 95117; 95165

== ENCOUNTER 2025-07-07 15:37 | Outpatient (AMB) | payer OTHER, SELFPAY ==
--- OUTSIDE RECORDS SUMMARY | 2024-11-26 06:30 | XMS_ITS ---
[facility] Address [address] [place] [address] Care Team Providers Care Well Services Operator Name Role Phone Andrea Owens Primary Care Provider Romana Valles Unavailable [phone] Encounters Encounter Location Date Provider Diagnosis [address] [address] 11/26/2024 Romana Leyva Plan Of Treatment No Information Progress Notes * Sharee MANCUSOOB:1970 ([age] yo M)Acc No.[id number]:11/26/2024 Progress Note Patient: John TIRADO Provider: Mari Leyva DPM :1970 A ge:54 Y S ex:Male Date:11/26/2024 Address:[address] [place] [address], [place] Pcp:Andrea Owens Subjective: * Chief Complaints: [...] 11/26/2024 Generated for Traceei kai/Jennifer/eTransmitting on: 0 07/07/2025 06:59 PM EDT
--- OUTSIDE RECORDS SUMMARY | 2025-02-22 11:45 | XMS_ITS ---
Author Organization [facility] Address [address] [place] [address] Care Team Providers Care Leather Staker Name Role Phone Andrea Owens Primary Care Provider Romana Valles Unavailable [phone] Encounters Encounter Location Date Provider Diagnosis [address] [address] 02/22/2025 Romana Leyva Plan Of Treatment No Information Progress Notes * Sharee MANCUSOOB:1970 ([age] yo M)Acc No.[id number]:02/22/2025 Progress Note Patient: John TIRADO Provider: Mari Leyva DPM :1970 A ge:54 Y S ex:Male Date:02/22/2025 Address:[address] [place] [address], [place] Pcp:Andrea Owens Subjective: * Chief Complaints: [...] 02/22/2025 Generated for Traceei kai/Jennifer/eTransmitting on: 0 07/07/2025 06:59 PM EDT
--- OUTSIDE RECORDS SUMMARY | 2025-04-22 12:00 | XMS_ITS ---
Author Organization [facility] Address [address] [place] [address] Care Team Providers Care Tool Crib Clerk Name Role Phone Andrea Owens Primary Care Provider Romana Valles Unavailable [phone] Encounters Encounter Location Date Provider Diagnosis [address] [address] 04/22/2025 Romana Leyva Plan Of Treatment No Information Progress Notes * Sharee MANCUSOOB:1970 ([age] yo M)Acc No.[id number]:04/22/2025 Progress Note Patient: John TIRADO Provider: Mari Leyva DPM :1970 A ge:54 Y S ex:Male Date:04/22/2025 Address:[address] [place] [address], [place] Pcp:Andrea Owens Subjective: * Chief Complaints: [...] Leyva DPM Date: 04/22/2025 Generated for Traceei kai/Jennifer/eTransmitting on: 07/07/2025 06:59 PM EDT
--- OUTSIDE RECORDS SUMMARY | 2025-07-07 18:59 | XMS_ITS | Clinical Summary ---
Author Organization [facility] Address [address] [place] [address] Care Team Providers Care Grinder Brake Lining Name Role Phone Abrahan Hastings MD Unavailable [phone] Andrea Owens MD Primary Care Provider [phone] Carlos Eduardo Fulton MD Unavailable [phone] Jose Jolly MD Unavailable [phone] Allergies No known active allergies Medications dulaglutide [...] Blood Gluc Sensor (FreeStyle Gilda 2 Sensor) [facility] See Admin Instructions. 3 Active Continuous Blood Gluc Sensor (FreeStyle Gilda 2 Sensor) [facility] USE DIRECTED EVERY 2 WEEKS 3 Active [...] Plan for left knee replacement with Dr. Hatsings on 04/26/23. Assessment & Plan (02/06/2023 12:18 [...] 08/08/2023 02/06/2023 Creatinine with GFR 02/07/2024 02/06/2023 Influenza Vaccine 05/21/2025 09/11/2021 COVID-19 Vaccine (2 - season) 2025 Medical Devices Implanted Type Area Application Software Engineer Device Identifier Shelf Expiration Date Model / Serial / Lot [id number] Oval 38mm Porous Patella Implanted:Qty: 1 on 04/26/2023 by Abrahan Hastings MD at [facility] Left: Knee 08/27/2029 / / [id number] Tibial Baseplate 7 Left Implanted:Qty: 1 on 04/26/2023 by Abrahan Hastings MD at [facility] Left: Knee 02/20/2032 / [id number] Femur Cr 6 Left Implanted:Qty: 1 on 04/26/2023 by Abrahan Hastings MD at [facility] Left: Knee 07/18/2031 / [id number] Legion 11mm Hf Insert Implanted:Qty: 1 on 04/26/2023 by Abrahan Hastings MD at [facility] Left: Knee 01/13/2032 / [id number] Procedures Procedure Name Priority Date/Time Associated Diagnosis Comments HEMOGLOBIN A1C WITH ESTIMATED AVERAGE GLUCOSE Routine 02/06/2023 2:09 PM EDT Arthritis of left knee Preop examination Primary hypertension Mixed hyperlipidemia Morbid obesity with BMI of 45.0-49.9, adult (HCC) BASIC METABOLIC PANEL Routine 02/06/2023 2:09 PM EDT Arthritis of left knee Preop examination Primary hypertension Mixed hyperlipidemia Morbid obesity with BMI of 45.0-49.9, adult ([facility]) from Last 3 Months or Most Recently Relevant to Health Maintenance Results * (ABNORMAL) Hemoglobin A1c with Estimated Average Glucose (02/06/2023 2:09 PM EDT) Hemoglobin A1C 6.1(H) <5.7 % 02/06/2023 8:55 PM EDT [facility] Comment: A1c% Interpretation 5.7 - 6.0 Increase risk of diabetes 6.1 - 6.4 Higher risk of diabetes > or = 6.5 Consistent with diabetes Diabetes Care, 33(Supp 1):S1-S61, 2010 Estimated Average Glucose 128 mg/dL 02/06/2023 8:55 PM EDT [facility] Blood specimen (specimen) Blood specimen / Unknown 02/06/2023 2:09 PM EDT 02/06/2023 8:26 PM EDT us [place] BALL POINTS INSPECTOR LAB BLOOD ORDERABLES Fi nal Result HOSPITAL LAB See Below [facility] [address] [place] [address] * (ABNORMAL) Basic Metabolic Panel (02/06/2023 2:09 PM EDT) Glucose 116(H) 65 - 99 mg/dL 02/06/2023 8:59 PM EDT [facility] Comment:Fasting: <100 mg/dL, Non-Fasting: <200 mg/dL (ADA 2005) Blood Urea Nitrogen (BUN) 12 8 - 21 mg/dL 02/06/2023 8:59 PM EDT [facility] Creatinine 1.0 0.5 - 1.3 mg/dL 02/06/2023 8:59 PM EDT [facility] eGFR >90 >59 02/06/2023 8:59 PM T [facility] Comment: CKD-EPI (2020) in mL/min/1.73 sq meters. Reported eGFR is based on the CKD-EPI equation that does not use a race coefficient as of 12/25/2022 Sodium 140 136 - 145 mmol/L 02/06/2023 8:59 PM EDT [facility] Potassium 3.9 3.4 - 5.3 mmol/L 02/06/2023 8:59 PM EDT [facility] Chloride 105 98 - 107 mmol/L 02/06/2023 8:59 PM EDT [facility] CO2 29 22 - 33 mmol/L 02/06/2023 8:59 PM EDT [facility] Anion Gap 6(L) 7 - 17 02/06/2023 8:59 PM EDT [facility] Calcium 8.7 8.7 - 10.5 mg/dL 02/06/2023 8:59 PM EDT [facility] BUN/Creatinine Ratio 12 10.0 - 25.0 Ratio 02/06/2023 8:59 PM T [facility] Blood specimen (specimen) (Plasma/Serum) 02/06/2023 2:09 PM EDT 02/06/2023 8:26 PM EDT [facility] [employer] [place] BALL POINTS INSPECTOR LAB BLOOD ORDERABLES Fi nal Result HOSPITAL LAB See Below [address] [address] from Last 3 Months or Most Recently Relevant to Health Maintenance Insurance [facility] Advance Directives * Full Code (Latest Code Status on File) Date Activated Date Inactivated Comments 04/26/2023 3:48 PM * Full Code Date Activated Date Inactivated Comments 04/26/2023 8:41 AM 04/26/2023 3:48 PM Care Teams Grinder Brake Lining Relationship Specialty Start Date End Date Andrea Owens MD [address] [place] [address] PCP - General Internal Medicine 02/01/23 Abrahan Hastings MD [address] [facility] [address] [place] [address] Surgery, Orthopedic 02/01/23 Carlos Eduardo Fulton MD [address] [place] [address] Cardiovascular Disease 03/20/23 Jose Jolly MD 100 [place] [address] Primary Passenger Train Braker Cardiovascular Disease 12/12/23
--- OUTSIDE RECORDS SUMMARY | 2025-07-07 18:59 | XMS_ITS | Encounter Summary ---
Author Organization [facility] Address [address] [place] [address] Care Team Providers Care Cloth Bolt Bander Name Role Phone Abrahan Hastings MD Unavailable [phone] Andrea Owens MD Primary Care Provider [phone] Carlos Eduardo Fulton MD Unavailable [phone] Jose Jolly MD Unavailable [phone] Encounter Details Date Type Department Care Team (Late st Contact Info) Description 03/01/2023 Scanned Document [facility] [place] [facility] [address] [place] [address] Provider, Generic Social History Tobacco [...] on filedocumented in this encounter Care Teams Cloth Bolt Bander Relationship Specialty Start Date End Date Andrea Owens MD [address] [place] [address] PCP - General Internal Medicine 02/01/23 Abrahan Hastings MD [address] [place] [address] Surgery, Orthopedic 02/01/23 Carlos Eduardo Fulton MD [address] [place] [address] Cardiovascular Disease 03/20/23 Jose Jolly MD [address] [facility] [address] [place] [address] Primary Maintenance Mechanic Cardiovascular Disease 12/12/23 documented as of this encounter
--- OUTSIDE RECORDS SUMMARY | 2025-07-07 18:59 | XMS_ITS | Clinical Summary ---
Author Organization [facility] Address [address] [place] [address] Care Team Providers Care Ios Architect Name Role Phone Andrea Owens MD Primary Care Provider [phone] Allergies No known active allergies Medications Medication [...] Group Subscriber ID Effective Dates Phone Address [facility] [id number] 2018-Present [address] [facility] [address] [place] [address] HMO Advance Directives For more information, please contact: [phone] Latest Code Status on File Code Status Date Activated Date Inactivated Comments Full Code 03/07/2023 1:16 PM 03/07/2023 11:43 PM This code status was ascertained in the following way: discussion with patient . Care Teams Ios Architect Relationship Specialty Start Date End Date Andrea Owens MD [address] [place] [address] PCP - General Internal Medicine 02/19/23
--- OUTSIDE RECORDS SUMMARY | 2025-07-07 18:59 | XMS_ITS | Encounter Summary ---
Author Organization [facility] Address [address] [place] [address] Care Team Providers Care Guard Immigration Name Role Phone Abrahan Hastings MD Unavailable [phone] Andrea Owens MD Primary Care Provider Carlos Eduardo Fulton MD Unavailable Jose Jolly MD Unavailable Encounter Details Date Type Department Care Team (Late st Contact Info) Description 03/01/2023 Scanned Document [facility] [place] at [facility] [address] [place] [address] Cardiology, Scan Social History Tobacco [...] on filedocumented in this encounter Care Teams Guard Immigration Relationship Specialty Start Date End Date Andrea Owens MD [address] [place] [address] PCP - General Internal Medicine 02/01/23 Abrahan Hastings MD [address] [place] [address] 100 [place] [address] Surgery, Orthopedic 02/01/23 Carlos Eduardo Fulton MD [address] [place] [address] Cardiovascular Disease 03/20/23 Jose Jolly MD [address] [place] [address] [place] [address] Primary Name Plate Stamper Cardiovascular Disease 12/12/23 documented as of this encounter
--- OUTSIDE RECORDS SUMMARY | 2025-07-07 18:59 | XMS_ITS | Encounter Summary ---
Author Organization [facility] Address [address] [place] [address] Care Team Providers Care Smelting Engineer Name Role Phone Abrahan Hastings MD Unavailable [phone] Andrea Owens MD Primary Care Provider [phone] Carlos Eduardo Fulton MD Unavailable [phone] Jose Jolly MD Unavailable [phone] Encounter Details Date Type Department Care Team (Late st Contact Info) Description 03/04/2023 Scanned Document [facility] [place] [facility] [address] [place] [address] Provider, Generic Social History Tobacco [...] on filedocumented in this encounter Care Teams Smelting Engineer Relationship Specialty Start Date End Date Andrea wOens MD [address] [place] [address] PCP - General Internal Medicine 02/01/23 Abrahan Hastings MD [address] [place] [address] Surgery, Orthopedic 02/01/23 Carlos Eduardo Fulton MD [address] [place] [address] Cardiovascular Disease 03/20/23 Jose Jolly MD [address] [address] Primary Watch Engine Operator Cardiovascular Disease 12/12/23 documented as of this encounter
--- OUTSIDE RECORDS SUMMARY | 2025-07-07 18:59 | XMS_ITS | Encounter Summary ---
Author Organization [facility] Address [address] [place] [address] Care Team Providers Care Tool Room Gear Machine Operator Name Role Phone Abrahan Hastings MD Unavailable Andrea Owens MD Primary Care Provider [phone] Carlos Eduardo Fulton MD Unavailable [phone] Jose Jolly MD Unavailable [phone] Encounter Details Date Type Department Care Team (Late st Contact Info) Description 02/28/2023 Scanned Document [facility] [place] at [facility] [address] [place] [address] Cardiology, Scan Social History Tobacco [...] on filedocumented in this encounter Care Teams Tool Room Gear Machine Operator Relationship Specialty Start Date End Date Andrea Owens MD [address] [place] [address] PCP - General Internal Medicine 02/01/23 Abrahan Hastings MD [address] [place] [address] 100 [place] [address] Surgery, Orthopedic 02/01/23 Carlos Eduardo Fulton MD [address] [place] [address] Cardiovascular Disease 03/20/23 Jose Jolly MD [address] [place] [address] [place] [address] Primary Prestressed Concrete Laborer Cardiovascular Disease 12/12/23 documented as of this encounter
--- OUTSIDE RECORDS SUMMARY | 2025-07-07 18:59 | XMS_ITS | Encounter Summary ---
Author Organization [facility] Address [address] [place] [address] Care Team Providers Care Client Support Consultant Name Role Phone Abrahan Hastings MD Unavailable [phone] Andrea Owens MD Primary Care Provider [phone] Carlos Eduardo Fulton MD Unavailable Jose Jolly MD Unavailable [phone] Reason for Visit * Reason Comments Medication Refill Encounter Details Date Type Department Care Team (Late st Contact Info) Description 08/14/2023 Refill [facility] [address] [address] Abrahan Hastings MD [address] [place] [phone] Status post total left knee replacement Social [...] replacement documented in this encounter Care Teams Client Support Consultant Relationship Specialty Start Date End Date Andrea Owens MD [address] [place] [address] PCP - General Internal Medicine 02/01/23 Abrahan Hastings MD [address] [place] [address] [address] [place] [address] Surgery, Orthopedic 02/01/23 Carlos Eduardo Fulton MD [address] [place] [address] Cardiovascular Disease 03/20/23 Jose Jolly MD 100 [facility] [address] [place] [address] Primary Paper Reel Operator Cardiovascular Disease 12/12/23 documented as of this encounter
--- OUTSIDE RECORDS SUMMARY | 2025-07-07 18:59 | XMS_ITS | Encounter Summary ---
Author Organization [facility] Address [address] [place] [address] Care Team Providers Care Livestock Yard Supervisor Name Role Phone Abrahan Hastings MD Unavailable Andrea Owens MD Primary Care Provider [phone] Carlos Eduardo Fulton MD Unavailable [phone] Jose Jolly MD Unavailable [phone] Encounter Details Date Type Department Care Team (Late st Contact Info) Description 04/26/2023 Scanned Document [facility] [address] [address] Abrahan Hastings MD [address] [place] [id number] Social History Tobacco Use Types Packs/Day Years [...] on filedocumented in this encounter Care Teams Livestock Yard Supervisor Relationship Specialty Start Date End Date Andrea Owens MD [address] [place] [address] PCP - General Internal Medicine 02/01/23 Abrahan Hastings MD [address] [place] [address] Surgery, Orthopedic 02/01/23 Carlos Eduardo Fulton MD [address] [place] [address] Cardiovascular Disease 03/20/23 Jose Jolly MD [address] [place] [address] Primary Coal Hiker Cardiovascular Disease 12/12/23 documented as of this encounter
--- OUTSIDE RECORDS SUMMARY | 2025-07-07 18:59 | XMS_ITS | Patient Health Record ---
Author Organization [facility] Address [address] [place] [address] Care Team Providers Care Fire Boss Name Role Phone EMILY SCOTT Unavailable [phone] Allergies No Known Allergies Results Component Value Reference Range Notes T3, FREE Reviewed date:03/11/2025 08:16:11 AM Interpretation: Performing Lab:NL2, SHERPA assistant [facility] [place] [id number] Ricardo Rhoades Notes/Report: FASTING: YES FASTING:YES T3, FREE 3.2 2.3-4.2 pg/mL TSH Reviewed date:03/11/2025 08:16:11 AM Interpretation: Performing Lab:NL2, SHERPA assistant [facility] [place] [id number] Ricardo Rhoades Notes/Report: FASTING: YES FASTING:YES TSH 0.95 0.40-4.50 mIU/L T4, FREE Reviewed date:03/11/2025 08:16:11 AM Interpretation: Performing Lab:NL2, SHERPA assistant [place] [facility] [place], [place] [address] Ricardo Rhoades Notes/Report: FASTING:YES FASTING: YES T4, FREE 1.1 0.8-1.8 ng/dL HEMOGLOBIN A1c Reviewed date:03/11/2025 08:14:47 AM Interpretation: Performing Lab:NL2, SHERPA assistant [facility] [place], [place] [address] Ricardo Rhoades Notes/Report: FASTING:YES FASTING: YES HEMOGLOBIN [...] copy faxed has been acknowledged. Queued to: [id number] URINALYSIS, COMPLETE Reviewed date:03/11/2025 08:16:11 AM Interpretation: Performing Lab:NL2, SHERPA assistant [facility] Ricardo Rhoades Notes/Report: FASTING:YES FASTING: YES [...] Reviewed date:03/11/2025 08:15:45 AM Interpretation: Performing Lab:NL2, SHERPA assistant [facility] Ricardo Rhoades Notes/Report: FASTING:YES FASTING: YES [...] MPV 11.2 7.5-12.5 fL ABSOLUTE NEUTROPHILS 2265 8815-0226 cells/uL ABSOLUTE LYMPHOCYTES 1527 748-7592 cells/uL ABSOLUTE MONOCYTES 616 200-950 cells/uL ABSOLUTE EOSINOPHILS 61 15-500 cells/uL ABSOLUTE BASOPHILS 19 0-200 cells/uL NEUTROPHILS 48.2 LYMPHOCYTES 37.0 MONOCYTES 13.1 EOSINOPHILS 1.3 BASOPHILS 0.4 COMPREHENSIVE METABOLIC PANE L Reviewed date:03/11/2025 08:16:11 AM Interpretation: Performing Lab:NL2, SHERPA assistant [facility] Ricardo Rhoades Notes/Report: FASTING:YES FASTING: YES [...] Reviewed date:03/11/2025 08:15:51 AM Interpretation: Performing Lab:NL2, SHERPA assistant [facility] Ricardo Rhoades Notes/Report: FASTING:YES FASTING: YES [...] of LDL-C. Mark SS et al. VANESSA. 2013;310(11): 8183-9890 (http://education.[employer].Stribe/faq/OMI863) CHOL/HDLC RATIO 3.5 <5.0 (calc) NON HDL [...] Orally Once a day Active Dexcom G6 Community Resource Officer - as directed; Durati on: 30 days [...] Status Risk Notes Problem Vitamin D deficiency (27290713) Vitamin D deficiency, unspecified (E55.9) Active confirmed Problem Essential hypertension (36713276) Essential (primary) hypertension (I10) Active confirmed Problem Excessive thirst (86023729) Polydipsia (R63.1) Active confirmed Problem Screening for malignant neoplasm of prostate (050986416) Encounter for screening for malignant neoplasm of prostate (Z12.5) Active confirmed Problem Endocrine/metabolic screening (759070949) Encounter for screening for other suspected endocrine disorder (Z13.29) Active confirmed Problem Screening procedure (76438532) Encounter for screening, unspecified (Z13.9) Active confirmed Problem Essential hypertension (37599068) Essential hypertension (I10) Active confirmed Problem Morbid obesity (148984734) Morbid obesity (E66.01) Active confirmed Problem Backache (315701262) Back pain, unspecified back location, unspecified back pain laterality, unspecified chronicity (M54.9) Active confirmed Problem Pure hypercholesterolemia (290936748) Pure hypercholesterolemia (E78.00) Active confirmed Problem Acquired hypothyroidism (818281157) Acquired hypothyroidism (E03.9) Active confirmed Problem Hyperlipoproteinemia (9107062) Acquired hyperlipoproteinemia (E78.5) Active confirmed Problem Seasonal allergy (238829929) Seasonal allergies (J30.2) Active confirmed Problem Type II diabetes mellitus without complication (418325136) Type 2 diabetes mellitus without complication, without long-term current use of insulin (E11.9) Active confirmed Problem Dyslipidemia (598338910) Dyslipidemia (E78.5) Active confirmed Problem Obstructive sleep apnea (26889811) Obstructive sleep apnea (G47.33) Active confirmed Problem Hyperglycemia due to type 2 diabetes mellitus (569418818172968) Poorly controlled diabetes mellitus (E11.65) Active confirmed Problem Body mass index 40+ - severely obese (410802840) BMI 45.0-49.9, adult (Z68.42) Active confirmed Vital Signs Heart Rate 97 /min 03/09/2025 Oximetry 98 % 03/09/2025 Blood pressure diastolic 96 mm Hg 03/09/2025 Height 71 in 03/09/2025 Blood pressure systolic 144 mm Hg 03/09/2025 Weight 324.2 lbs 03/09/2025 BMI 45.21 kg/m2 03/09/2025 Encounters Encounter Location Date Provider Diagnosis [facility] [address] [place] [address] 08/06/2024 EMILY SCOTT Dyslipidemia E78.5 ; Type 2 diabetes mellitus without complication, without long-term current use of insulin E11.9 ; Acquired hypothyroidism E03.9 ; Peripheral edema R60.9 and Encounter for immunization Z23 [facility] [address] [place] [address] 11/09/2024 EMILY SCOTT Type 2 diabetes deanne itus without complication, without long-term current use of insulin E11.9 ; Annual physical exam Z00.00 ; Dyslipidemia E78.5 ; Acquired hypothyroidism E03.9 ; Peripheral edema R60.9 and Encounter for immunization Z23 [facility] [address] [place] [address] 03/09/2025 EMILY SCOTT Type 2 diabetes deanne itus without complication, without long-term current use of insulin E11.9 ; Dyslipidemia E78.5 ; Acquired hypothyroidism E03.9 ; Peripheral edema R60.9 and [facility]ential [facility] [address] [place] [address] 03/17/2025 EMILY SCOTT Assessments Encounter Date Diagnosis (ICD Code) Assessment Notes Treatment Notes Treatment Clinical Notes Section Notes 11/09/2024 Annual physical exam (ICD-10 - Z00.00) [...] log exercise and discussed fitness Apps like GenieTown which can help keep log off calories [...] Dictation was accomplished with the use of Carweez voice recognition software, prone to medical misidentifications [...] log exercise and discussed fitness Apps like [employer] which can help keep log off calories [...] Dictation was accomplished with the use of [employer] voice recognition software, prone to medical misidentifications [...] Dictation was accomplished with the use of [employer] voice recognition software, prone to medical misidentifications [...] next visit it any questions/concerns arise. 08/06/2024 Type 2 diabetes mellitus without complication, [...] Dictation was accomplished with the use of Carweez voice recognition software, prone to medical misidentifications [...] Dictation was accomplished with the use of Carweez voice recognition software, prone to medical misidentifications [...] Dictation was accomplished with the use of Car[employer]ez voice recognition software, prone to medical misidentifications [...] Dictation was accomplished with the use of [employer] voice recognition software, prone to medical misidentifications [...] log exercise and discussed fitness Apps like [employer]Town which can help keep log off calories [...] Dictation was accomplished with the use of Carweez voice recognition software, prone to medical misidentifications [...] log exercise and discussed fitness Apps like [employer] which can help keep log off calories [...] Dictation was accomplished with the use of Carweez voice recognition software, prone to medical misidentifications [...] Dictation was accomplished with the use of Carweez voice recognition software, prone to medical misidentifications [...] Dictation was accomplished with the use of Carweez voice recognition software, prone to medical misidentifications [...] Dictation was accomplished with the use of Car[employer]ez voice recognition software, prone to medical misidentifications [...] log exercise and discussed fitness Apps like [employer]Town which can help keep log off calories [...] Dictation was accomplished with the use of [employer] voice recognition software, prone to medical misidentifications [...] Dictation was accomplished with the use of Carweez voice recognition software, prone to medical misidentifications [...] log exercise and discussed fitness Apps like [employer] which can help keep log off calories [...] Dictation was accomplished with the use of Carweez voice recognition software, prone to medical misidentifications [...] PM, [address], [place], [address], Insurance Providers Payer Name Payer Address Payer Phone Subscriber Number Group Number Insured Name Patient Relationship to Insured Coverage Start Date Coverage End Date [facility] [address] [facility] [id number] John Mancuso Self - patient is the insured 2 Medications Administered Medication Instructions Date of Administration Dosage Notes [facility] B12 INJECTION 12/06/2022 [id number] Medical [...]
--- OUTSIDE RECORDS SUMMARY | 2025-07-07 18:59 | XMS_ITS | Encounter Summary ---
Author Organization [facility] Address [address] [place] [address] Care Team Providers Care Control Clerk Food And Beverage Name Role Phone Abrahan Hastings MD Unavailable [phone] Andrea Owens MD Primary Care Provider [phone] Carlos Eduardo Fulton MD Unavailable [phone] Jose Jolly MD Unavailable [phone] Encounter Details Date Type Department Care Team (Late st Contact Info) Description 03/04/2023 Scanned Document [facility] [address] [place] [address] Provider, Generic Social History Tobacco [...] on filedocumented in this encounter Care Teams Control Clerk Food And Beverage Relationship Specialty Start Date End Date Andrea Owens MD [address] [place] [address] PCP - General Internal Medicine 02/01/23 Abrahan Hastings MD [address] [place] [address] Surgery, Orthopedic 02/01/23 Carlos Eduardo Fulton MD [address] [place] [address] Cardiovascular Disease 03/20/23 Joes Jolly MD [address] [address] Primary Development Planner Cardiovascular Disease 12/12/23 documented as of this encounter
--- OUTSIDE RECORDS SUMMARY | 2025-07-07 19:00 | XMS_ITS | Encounter Summary ---
Author Organization [facility] Address [address] [place] [address] Care Team Providers Care House Supervisor Name Role Phone Abrahan Hastings MD Unavailable [phone] Andrea Owens MD Primary Care Provider [phone] Carlos Eduardo Fulton MD Unavailable [phone] Jose Jolly MD Unavailable [phone] Encounter Details Date Type Department Care Team (Late st Contact Info) Description 03/04/2023 Scanned Document [facility] [place] at [address] [place] [address] Provider, Generic Social History Tobacco [...] on filedocumented in this encounter Care Teams House Supervisor Relationship Specialty Start Date End Date Andrea Owens MD [address] [place] [address] PCP - General Internal Medicine 02/01/23 Abrahan Hastings MD [address] [place] [address] Surgery, Orthopedic 02/01/23 Carlos Eduardo Fulton MD [address] [place] [address] Cardiovascular Disease 03/20/23 Jose Jolly MD [address] [address] Primary Director Of Pupil Personnel Program Cardiovascular Disease 12/12/23 documented as of this encounter
--- OUTSIDE RECORDS SUMMARY | 2025-07-07 19:00 | XMS_ITS | Encounter Summary ---
Author Organization [facility] Address [address] [place] [address] Care Team Providers Care Respiratory Clinician Name Role Phone Abrahan Hastings MD Unavailable [phone] Andrea Owens MD Primary Care Provider [phone] Carlos Eduardo Fulton MD Unavailable Jose Jolly MD Unavailable [phone] Encounter Details Date Type Department Care Team ([facility] st Contact Info) Description 04/19/2023 Scanned Document [facility] [address] [address] Abrahan Hastings MD [address] [place] [id number] Social History Tobacco Use Types Packs/Day Years [...] suspected to have Coronavirus/COVID-19? No / Unsure 04/01/2023 1:10 PM EDT documented as of this encounter Plan of Treatment Not on file documented as of this encounter Visit Diagnoses Not on filedocumented in this encounter Care Teams Respiratory Clinician Relationship Specialty Start Date End Date Andrea Owens MD [address] [place] [address] PCP - General Internal Medicine 02/01/23 Abrahan Hastings MD [address] [place] [address] Surgery, Orthopedic 02/01/23 Carlos Eduardo Fulton MD [address] [place] [address] Cardiovascular Disease 03/20/23 Jose Jolly MD [address] [place] [address] Primary Mineral Economist Cardiovascular Disease 12/12/23 documented as of this encounter
--- OUTSIDE RECORDS SUMMARY | 2025-07-07 19:00 | XMS_ITS | Encounter Summary ---
Author Organization [facility] Address [address] [place] [address] Care Team Providers Care Wad Compressor Operator Adjuster Name Role Phone Abrahan Hastings MD Unavailable [phone] Andrea Owens MD Primary Care Provider [phone] Carlos Eduardo Fulton MD Unavailable Jose Jolly MD Unavailable Encounter Details Date Type Department Care Team (Late st Contact Info) Description 03/04/2023 Erroneous Encounter [facility] [place] [id number] Hiram Paz MD [address] [place] [address] Social History Tobacco Use Types [...] on filedocumented in this encounter Care Teams Wad Compressor Operator Adjuster Relationship Specialty Start Date End Date Andrea Owens MD [address] [place] [address] PCP - General Internal Medicine 02/01/23 Abrahan Hastings MD [address] [place] [address] Surgery, Orthopedic 02/01/23 Carlos Eduardo Fulton MD [address] [place] [address] Cardiovascular Disease 03/20/23 Jose Jolly MD [address] [place] [address] Primary Land Acquisition Manager Cardiovascular Disease 12/12/23 documented as of this encounter
--- OUTSIDE RECORDS SUMMARY | 2025-07-07 19:00 | XMS_ITS | Patient Health Record ---
Author Organization [facility] Address [address] [place] [address] Care Team Providers Care Geomorphology Teacher Name Role Phone Owens, Andrea Primary Care Provider Romana Valles Unavailable [phone] Allergies No Known Allergies Results Component Value [...] toe of lesser toe of right foot (4218816548318333 8) Other hammer toe(s) (acquired), right foot (M20.41) Active confirmed Problem Acquired hammer toe of lesser toe of left foot (9665484865223425 3) Other hammer toe(s) (acquired), left foot (M20.42) Active confirmed Problem Polyneuropathy due to type 2 diabetes mellitus (824882155) Type 2 diabetes mellitus with diabetic polyneuropathy (E11.42) Active confirmed Vital Signs Blood pressure diastolic 70 mm Hg 05/13/2025 Height 6ft in 05/13/2025 Blood pressure systolic 140 mm Hg 05/13/2025 Weight 315 lbs 05/13/2025 BMI 42.72 kg/m2 05/13/2025 Encounters Encounter Location Date Provider Diagnosis [facility] [address] [place] [address] 12/14/2024 Romana Leyva Onychomycosis B35.1 ; Type 2 diabetes mellitus with diabetic polyneuropathy E11.42 ; Tinea pedis of both feet B35.3 ; Other hammer toe(s) (acquired), right foot M20.41 and Other hammer toe(s) (acquired), left foot M20.42 [facility] [address] [place] [address] 05/13/2025 Romana Leyva Onychomycosis B35.1 ; Type 2 diabetes mellitus with diabetic polyneuropathy E11.42 and Tinea pedis of both feet B35.3 [facility] [address] [address] 11/26/2024 Romana Perica [facility] [address] 12/22/2024 [facility] [address] [place] [address] 02/19/2025 Romana Perica [facility] [address] [place] [address] 04/20/2025 Romana Perica [address] [place] [address] [address] 05/13/2025 Romana Leyva Assessments Encounter Date Diagnosis [...] (LFT) 12/14/2024 *Liver Function Test (LFT) 05/13/2025 73034-Ogkjmexu Plate 09/02/2018 10483-XYJ 04/30/2014 06391- Debride <25 sq cm 06/15/2014 33712- Debride <25 sq cm 10/30/2013 43459-LIOICBI SKIN/TISSUE 05/19/2014 13287 I&D ABSCESS- SIMPLE,SINGLE 015 19823 I&D ABSCESS- SIMPLE,SINGLE 014 20681 I&D ABSCESS- SIMPLE,SINGLE 013 32425-SXCO SKIN LESIONS, OVER 4 05/29/20 24 05805- Nail Unit Biopsy 09/02/2018 Insurance Providers Payer Name Payer Address Payer Phone Subscriber Number Group Number Insured Name Patient Relationship to Insured Coverage Start Date Coverage End Date [facility] [address] [place] [address] [phone] [id number] John Mancuso Self - patient is the insured Medical (General) History Medical History History ICD Code Anemia Back,Hip,and Knee pain covid-19 Diabetic high blood pressure Surgical History Surgery Date(Month/Year) left wrist surgery nasal surgery knee surgery 04/12
== END 2025-07-07 15:43 | disposition home or self-care (01) ==
LOC: HO.HMGAL 15:37
PROVIDERS: PCP Internal Medicine; Visit Provider Registered Nurse Emergency
DX: J30.89 Other allergic rhinitis (principal)
CPT/HCPCS: 95117; 95165

== ENCOUNTER 2025-07-26 16:17 | Outpatient (AMB) | payer OTHER, SELFPAY ==
--- OUTSIDE RECORDS SUMMARY | 2024-11-26 06:30 | XMS_ITS ---
Author Organization [facility] Address [address] [place] [address] Care Team Providers Care It Systems Analyst Consultant Name Role Phone Andrea Owens Primary Care Provider Romana Valles Unavailable [phone] Encounters Encounter Location Date Provider Diagnosis [address] [address] 11/26/2024 Romana Leyva Plan Of Treatment No Information Progress Notes * Sharee MANCUSOOB:1970 ([age] yo M)Acc No.[id number]:11/26/2024 Progress Note Patient: John TIRADO Provider: Mari Leyva DPM :1970 A ge:54 Y S ex:Male Date:11/26/2024 Address:[address] [place] [address], [place] Pcp:Andrea Owens Subjective: * Chief Complaints: [...] 11/26/2024 Generated for Traceei kai/Jennifer/eTransmitting on: 1 06:28 PM EDT
--- OUTSIDE RECORDS SUMMARY | 2025-02-22 11:45 | XMS_ITS ---
Author Organization [facility] Address [address] [place] [address] Care Team Providers Care Sales Office Coordinator Name Role Phone Andrea Owens Primary Care Provider Romana Valles Unavailable [phone] Encounters Encounter Location Date Provider Diagnosis [address] [address] 02/22/2025 Romana Leyva Plan Of Treatment No Information Progress Notes * Sharee MANCUSOOB:1970 ([age] yo M)Acc No.[id number]:02/22/2025 Progress Note Patient: John TIRADO Provider: Mari Leyva DPM :1970 A ge:54 Y S ex:Male Date:02/22/2025 Address:[address] [place] [address], [place] Pcp:Andrea Owens Subjective: * Chief Complaints: [...] 02/22/2025 Generated for Traceei kai/Jennifer/eTransmitting on: 1 06:28 PM EDT
--- OUTSIDE RECORDS SUMMARY | 2025-04-22 12:00 | XMS_ITS ---
Author Organization [facility] Address [address] [place] [address] Care Team Providers Care Neuropsychology Division Chief Name Role Phone Andrea Owens Primary Care Provider Romana Valles Unavailable [phone] Encounters Encounter Location Date Provider Diagnosis [address] [address] 04/22/2025 Romana Leyva Plan Of Treatment No Information Progress Notes * Sharee MANCUSOOB:1970 ([age] yo M)Acc No.[id number]:04/22/2025 Progress Note Patient: John TIRADO Provider: Mari Leyva DPM :1970 A ge:54 Y S ex:Male Date:04/22/2025 Address:[address] [place] [address], [place] Pcp:Andrea Owens Subjective: * Chief [...] 0 04/22/2025 Generated for Lakesha quinn/Jennifer/eTransmitting on: 1 06:28 PM EDT
--- OUTSIDE RECORDS SUMMARY | 2025-07-26 18:28 | XMS_ITS | Clinical Summary ---
Author Organization [facility] [place] [address] Care Team Providers Care Lifter Name Role Phone Andrea Owens MD Primary Care Provider [phone] Surgical History Surgery Date Site/Laterality Comments SINUS SURGERY PROCEDURE:SINUS SURGERY HAND SURGERY PROCEDURE:HAND SURGERY CARDIAC CATHETERIZATION 03/07/2023 N/A PROCEDURE:CARDIAC CATHETERIZATION;COMMENT:Procedure: LEFT HEART CATHETERIZATION; Surgeon: Ishmael Kent DO; Location: [facility] CARDIAC INSTRUMENT ROOM TECHNICIAN; Service: Cardiology; Laterality: N/A; CARDIAC CATHETERIZATION 03/07/2023 N/A PROCEDURE:CARDIAC CATHETERIZATION;COMMENT:Procedure: CORONARY ANGIOGRAPHY; Surgeon: Ishmael Kent DO; Location: [facility] CARDIAC INSTRUMENT ROOM TECHNICIAN; Service: Cardiology; Laterality: N/A; Medical History Medical History Date Comments Hyperlipidemia DX:Hyperlipidemi a Hypertension DX:Hypertension Diabetes mellitus (CMS/HCC V24, CMS/HCC V28) DX:Diabetes mellitus ([facility]) Social History Tobacco Use Types Packs/Day Years [...] Health Maintenance Due Date Last Done Comments Colorectal Cancer Screening: Colonoscopy 1970 DTaP,Tdap,and Td Vaccines (1 - Tdap) 1989 Hepatitis B Vaccines (1 of 3 - 19+ 3-dose series) 1989 Pneumococcal Vaccine: 50+ Ye ars (1 of 1 - PCV) 2020 Zoster Vaccines (1 of 2) 2020 Cholesterol Screening (Lipid Panel) 09/18/2022 HIV Screening 09/18/2022 Hepatitis C Screening 09/18/2022 Social Influencers of Health Screening 09/18/2022 Hypertension/CHF/CAD Annual BMP Blood Test 11/24/2023 Depression Screening 10/21/2024 COVID-19 Vaccine (1 - 2023-2 5 season) 2025 Influenza Vaccine (#1) 2025 RSV Immunization Adult Patie nts (1 - 1-dose 75+ series) 2045 HIB Vaccines Aged Out No longer eligi [...] age to complete this topic Care Teams Lifter Relationship Specialty Start Date End Date Andrea Owens MD [facility] - General 02/19/23
--- OUTSIDE RECORDS SUMMARY | 2025-07-26 18:28 | XMS_ITS | Encounter Summary ---
Author Organization [facility] Address [address] [place] [address] Care Team Providers Care Data Entry Analyst Name Role Phone Abrahan Hastings MD Unavailable [phone] Andrea Owens MD Primary Care Provider [phone] Carlos Eduardo Fulton MD Unavailable [phone] Jose Jolly MD Unavailable [phone] Encounter Details Date Type Department Care Team (Late st Contact Info) Description 03/01/2023 Scanned Document [facility] [place] [facility] [address] [place] [address] Cardiology, Scan Social History Tobacco [...] on filedocumented in this encounter Care Teams Data Entry Analyst Relationship Specialty Start Date End Date Andrea Owens MD [address] [place] [address] PCP - General Internal Medicine 02/01/23 Abrahan Hastings MD [address] [place] [address] [address] [place] [address] Surgery, Orthopedic 02/01/23 Carlos Eduardo Fulton MD [address] [place] [address] Cardiovascular Disease 03/20/23 Jose Jolly MD [address] [place] [address] [place] [address] Primary Thermo Cementing Folder Operator Cardiovascular Disease 12/12/23 documented as of this encounter
--- OUTSIDE RECORDS SUMMARY | 2025-07-26 18:28 | XMS_ITS | Encounter Summary ---
Author Organization [facility] Address [address] [place] [address] Care Team Providers Care Cinder Pit Worker Name Role Phone Abrahan Hastings MD Unavailable [phone] Andrea Owens MD Primary Care Provider [phone] Carlos Eduardo Fulton MD Unavailable [phone] Jose Jolly MD Unavailable Encounter Details Date Type Department Care Team (Late st Contact Info) Description 03/04/2023 Scanned Document [facility] [place] [facility] [address] [place] [address] Provider, Generic Social History Tobacco [...] on filedocumented in this encounter Care Teams Cinder Pit Worker Relationship Specialty Start Date End Date Andrea Owens MD [address] [place] [address] PCP - General Internal Medicine 02/01/23 Abrahan Hastings MD [address] [place] [address] Surgery, Orthopedic 02/01/23 Carlos Eduardo Fulton MD [address] [place] [address] Cardiovascular Disease 03/20/23 Jose Jolly MD [address] [address] Primary Emergency Vehicle Operations Instructor Cardiovascular Disease 12/12/23 documented as of this encounter
--- OUTSIDE RECORDS SUMMARY | 2025-07-26 18:28 | XMS_ITS | Encounter Summary ---
Author Organization [facility] Address [address] [place] [address] Care Team Providers Care Demand Planning Manager Name Role Phone Abrahan Hastings MD Unavailable [phone] Andrea Owens MD Primary Care Provider [phone] Carlos Eduardo Fulton MD Unavailable [phone] Jose Jolly MD Unavailable [phone] Encounter Details Date Type Department Care Team (Late st Contact Info) Description 03/04/2023 Scanned Document [facility] [place] [facility] [address] [place] [address] Provider, Generic Social History Tobacco [...] on filedocumented in this encounter Care Teams Demand Planning Manager Relationship Specialty Start Date End Date Andrea Owens MD [address] [place] [address] PCP - General Internal Medicine 02/01/23 Abrahan Hastings MD [address] [place] [address] Surgery, Orthopedic 02/01/23 Carlos Eduardo Fulton MD [address] [place] [address] Cardiovascular Disease 03/20/23 Jose Jolly MD [address] [address] Primary Fiberglass Grinder Cardiovascular Disease 12/12/23 documented as of this encounter
--- OUTSIDE RECORDS SUMMARY | 2025-07-26 18:28 | XMS_ITS | Encounter Summary ---
Author Organization [facility] Address [address] [place] [address] Care Team Providers Care Golf Shoe Spike Assembler Name Role Phone Abrahan Hastings MD Unavailable [phone] Andrea Owens MD Primary Care Provider [phone] Carlos Eduardo Fulton MD Unavailable [phone] Jose Jolly MD Unavailable Encounter Details Date Type Department Care Team (Late st Contact Info) Description 03/01/2023 Scanned Document [facility] [place] [facility] [address] [place] [address] Provider, Generic Social History Tobacco [...] on filedocumented in this encounter Care Teams Golf Shoe Spike Assembler Relationship Specialty Start Date End Date Andrea Owens MD [address] [place] [address] PCP - General Internal Medicine 02/01/23 Abrahan Hastings MD [address] [place] [address] Surgery, Orthopedic 02/01/23 Carlos Eduardo Fulton MD [address] [place] [address] Cardiovascular Disease 03/20/23 Jose Jolly MD 100 [facility] [address] [place] [address] Primary Regional Sales Engineer Cardiovascular Disease 12/12/23 documented as of this encounter
--- OUTSIDE RECORDS SUMMARY | 2025-07-26 18:28 | XMS_ITS | Clinical Summary ---
Author Organization [facility] Address [address] [place] [address] Care Team Providers Care Metal Machinist Name Role Phone Abrahan Hastings MD Unavailable [phone] Andrea Owens MD Primary Care Provider [phone] Carlos Eduardo Fulton MD Unavailable [phone] Jose Jolly MD Unavailable [phone] Allergies No known active allergies Medications dulaglutide [...] Blood Gluc Sensor (FreeStyle Gilda 2 Sensor) [facility] See Admin Instructions. 3 Active Continuous Blood Gluc Sensor (FreeStyle Gilda 2 Sensor) [facility] USE DIRECTED EVERY 2 WEEKS 3 Active [...] season) 2025 Medical Devices Implanted Type Area Cotton Puller Device Identifier Shelf Expiration Date Model / Serial / Lot [id number] Oval 38mm Porous Patella Implanted:Qty: 1 on 04/26/2023 by Abrahan Hastings MD at [facility] Left: Knee 08/27/2029 / / [id number] Tibial Baseplate 7 Left Implanted:Qty: 1 on 04/26/2023 by Abrahan Hastings MD at [facility] Left: Knee 02/20/2032 / [id number] Femur Cr 6 Left Implanted:Qty: 1 on 04/26/2023 by Abrahan Hastings MD at [facility] Left: Knee 07/18/2031 / [id number] 11mm Hf Insert Implanted:Qty: 1 on 04/26/2023 by Abrahan Hastings MD at [facility] Left: Knee 01/13/2032 / [id number] Procedures Procedure Name Priority Date/Time Associated Diagnosis [...] with BMI of 45.0-49.9, adult ([facility]) from Last 3 Months or Most Recently Relevant to Health Maintenance Results * (ABNORMAL) Hemoglobin A1c with Estimated Average Glucose (02/06/2023 2:09 PM EDT) Hemoglobin A1C 6.1(H) <5.7 % 02/06/2023 8:55 PM EDT [facility] Comment: A1c% Interpretation 5.7 - 6.0 Increase risk of diabetes 6.1 - 6.4 Higher risk of diabetes > or = 6.5 Consistent with diabetes Diabetes Care, 33(Supp 1):S1-S61, 2010 Estimated Average Glucose 128 mg/dL 02/06/2023 8:55 PM EDT [facility] Blood specimen (specimen) Blood specimen / Unknown 02/06/2023 2:09 PM EDT 02/06/2023 8:26 PM EDT [facility] ARCHITECT LAB BLOOD ORDERABLES Fi nal Result HOSPITAL LAB See Below [facility] [address] [place] [address] * (ABNORMAL) Basic Metabolic Panel (02/06/2023 2:09 PM EDT) Glucose 116(H) 65 - 99 mg/dL 02/06/2023 8:59 PM EDT [facility] Comment:Fasting: <100 mg/dL, Non-Fasting: <200 mg/dL (ADA 2005) Blood Urea Nitrogen (BUN) 12 8 - 21 mg/dL 02/06/2023 8:59 PM EDT [facility] Creatinine 1.0 0.5 - 1.3 mg/dL 02/06/2023 8:59 PM EDT [facility] eGFR >90 >59 02/06/2023 8:59 PM T [facility] Comment: CKD-EPI (2020) in mL/min/1.73 sq meters. Reported eGFR is based on the CKD-EPI equation that does not use a race coefficient as of 12/25/2022 Sodium 140 136 - 145 mmol/L 02/06/2023 8:59 PM EDT [facility] Potassium 3.9 3.4 - 5.3 mmol/L 02/06/2023 8:59 PM EDT [facility] Chloride 105 98 - 107 mmol/L 02/06/2023 8:59 PM EDT [facility] CO2 29 22 - 33 mmol/L 02/06/2023 8:59 PM EDT [facility] Anion Gap 6(L) 7 - 17 02/06/2023 8:59 PM EDT [facility] Calcium 8.7 8.7 - 10.5 mg/dL 02/06/2023 8:59 PM EDT [facility] BUN/Creatinine Ratio 12 10.0 - 25.0 Ratio 02/06/2023 8:59 PM T [facility] Blood specimen (specimen) (Plasma/Serum) 02/06/2023 2:09 PM EDT 02/06/2023 8:26 PM EDT [facility] ARCHITECT LAB BLOOD ORDERABLES Fi nal Result HOSPITAL LAB See Below [address] [address] from Last 3 Months or Most Recently Relevant to Health Maintenance Insurance [facility] Advance Directives * Full Code (Latest Code Status on File) Date Activated Date Inactivated Comments 04/26/2023 3:48 PM * Full Code Date Activated Date Inactivated Comments 04/26/2023 8:41 AM 04/26/2023 3:48 PM Care Teams Metal Machinist Relationship Specialty Start Date End Date Andrea Owens MD [address] [place] [address] PCP - General Internal Medicine 02/01/23 Abrahan Hastings MD 31 [facility] [address] [place] [address] Surgery, Orthopedic 02/01/23 Carlos Eduardo Fulton MD [address] [place] [address] Cardiovascular Disease 03/20/23 Jose Jolly MD 100 [place] [address] Primary Respooler Cardiovascular Disease 12/12/23
--- OUTSIDE RECORDS SUMMARY | 2025-07-26 18:28 | XMS_ITS | Encounter Summary ---
Author Organization [facility] Address [address] [place] [address] Care Team Providers Care Personnel Generalist Manager Name Role Phone Abrahan aHstings MD Unavailable [phone] Andrea Owens MD Primary Care Provider [phone] Carlos Eduardo Fulton MD Unavailable [phone] Jose Jolly MD Unavailable [phone] Encounter Details Date Type Department Care Team (Late st Contact Info) Description 04/26/2023 Scanned Document [facility] [address] [id number] Abrahan Hastings MD [address] [place] [phone] Social History Tobacco Use Types Packs/Day Years [...] on filedocumented in this encounter Care Teams Personnel Generalist Manager Relationship Specialty Start Date End Date Andrea Owens MD [address] [place] [address] PCP - General Internal Medicine 02/01/23 Abrahan Hastings MD [address] [place] [address] Surgery, Orthopedic 02/01/23 Carlos Eduardo Fulton MD [address] [place] [address] Cardiovascular Disease 03/20/23 Jose Jolly MD [address] [place] [address] Primary Preventive Maintenance Engineer Cardiovascular Disease 12/12/23 documented as of this encounter
--- OUTSIDE RECORDS SUMMARY | 2025-07-26 18:28 | XMS_ITS | Clinical Summary ---
Author Organization [facility] Address [address] [place] [address] Care Team Providers Care Associate Genetics Professor Name Role Phone Andrea Owens MD Primary Care Provider [phone] Allergies No known active allergies Medications Medication [...] Group Subscriber ID Effective Dates Phone Address [facility] [id number] 2018-Present [address] [facility] [address] [place] [address] HMO Advance Directives For more information, please contact: [phone] Latest Code Status on File Code Status Date Activated Date Inactivated Comments Full Code 03/07/2023 1:16 PM 03/07/2023 11:43 PM This code status was ascertained in the following way: discussion with patient . Care Teams Associate Genetics Professor Relationship Specialty Start Date End Date Andrea Owens MD [address] [place] [address] PCP - General Internal Medicine 02/19/23
--- OUTSIDE RECORDS SUMMARY | 2025-07-26 18:28 | XMS_ITS | Encounter Summary ---
Author Organization [facility] Address [address] [place] [address] Care Team Providers Care Engineering Technical Specialist Name Role Phone Abrahan Hastings MD Unavailable [phone] Andrea Owens MD Primary Care Provider [phone] Carlos Eduardo Fulton MD Unavailable [phone] Jose Jolly MD Unavailable [phone] Encounter Details Date Type Department Care Team (Late st Contact Info) Description 02/28/[address] [facility] Bone & Joint [place] [facility] [address] [place] [address] Cardiology, Scan Social History Tobacco [...] on filedocumented in this encounter Care Teams Engineering Technical Specialist Relationship Specialty Start Date End Date Andrea Owens MD [address] [place] [address] PCP - General Internal Medicine 02/01/23 Abrahan Hastings MD [address] [place] [address] 100 [place] [address] Surgery, Orthopedic 02/01/23 Carlos Eduardo Fulton MD [address] [place] [address] Cardiovascular Disease 03/20/23 Jose Jolly MD [address] [place] [address] [place] [address] Primary Collector Cardiovascular Disease 12/12/23 documented as of this encounter
--- OUTSIDE RECORDS SUMMARY | 2025-07-26 18:28 | XMS_ITS | Encounter Summary ---
Author Organization [facility] Address [address] [place] [address] Care Team Providers Care Fiscal Services Director Name Role Phone Abrahan Hastings MD Unavailable [phone] Andrea Owens MD Primary Care Provider [phone] Carlos Eduardo Fulton MD Unavailable [phone] Jose Jolly MD Unavailable [phone] Reason for Visit * Reason Comments Medication Refill Encounter Details Date Type Department Care Team (Late st Contact Info) Description 08/14/2023 Refill [facility] [address] [address] Abrahan Hastings MD [address] [place] [address] [phone] Status post total left knee replacement Social [...] replacement documented in this encounter Care Teams Fiscal Services Director Relationship Specialty Start Date End Date Andrea Owens MD 299 [place] [address] PCP - General Internal Medicine 02/01/23 Abrahan Hastings MD [address] [place] [address] [address] [place] [address] Surgery, Orthopedic 02/01/23 Carlos Eduardo Fulton MD [address] [place] [address] Cardiovascular Disease 03/20/23 Jose Jolly MD 100 [facility] [address] [place] [address] Primary Maintenance Mechanic 2Nd Shift Cardiovascular Disease 12/12/23 documented as of this encounter
--- OUTSIDE RECORDS SUMMARY | 2025-07-26 18:28 | XMS_ITS | Patient Health Record ---
Author Organization [facility] [address] Address [address] [place] [address] Care Team Providers Care Human Resources Temp Name Role Phone EMILY SCOTT Unavailable [phone] Allergies No Known Allergies Results Component Value Reference Range Notes LIPID PANEL, STANDARD Reviewed date:03/11/2025 08:15:51 AM Interpretation: Performing Lab:NL2, [facility] [place], [place] [phone] Ricardo Rhoades Notes/Report: FASTING: YES FASTING:YES CHOLESTEROL, [...] LDL-C. Mark SS et al. VANESSA. 2013;310(19): 6568-5023 (http://education.[email or web address] Fitness.com/faq/PGL096) CHOL/HDLC RATIO 3.5 <5.0 (calc) NON HDL CHOLESTEROL 86 <130 mg/dL (calc) For patients with diabetes plus 1 major ASCVD risk factor, treating to a non-HDL-C goal of <100 mg/dL (LDL-C of <70 mg/dL) is considered a therapeutic option. COMPREHENSIVE METABOLIC PANE L Reviewed date:03/11/2025 08:16:11 AM Interpretation: Performing Lab:NL2, [facility] [place], [place] [phone] Ricardo Rhoades Notes/Report: FASTING:YES FASTING: YES GLUCOSE [...] Reviewed date:03/11/2025 08:15:45 AM Interpretation: Performing Lab:NL2, [facility] [address] Ricardo Shrestha Notes/Report: FASTING:YES FASTING: YES [...] MPV 11.2 7.5-12.5 fL ABSOLUTE NEUTROPHILS [phone] cells/uL ABSOLUTE LYMPHOCYTES 4701 122-7253 cells/uL ABSOLUTE MONOCYTES 616 200-950 cells/uL ABSOLUTE EOSINOPHILS 61 15-500 cells/uL ABSOLUTE BASOPHILS 19 0-200 cells/uL NEUTROPHILS 48.2 LYMPHOCYTES 37.0 MONOCYTES 13.1 EOSINOPHILS 1.3 BASOPHILS 0.4 URINALYSIS, COMPLETE Reviewed date:03/11/2025 08:16:11 AM Interpretation: Performing Lab:NL2, [facility] Center[facility] Ricardo Rhoades Notes/Report: FASTING:YES FASTING: YES [...] Reviewed date:03/11/2025 08:14:47 AM Interpretation: Performing Lab:GERRY2, [facility] Jaye Jordyn Rhoades Notes/Report: FASTING: YES FASTING:YES HEMOGLOBIN A1c 5.9 <5.7 % For someone [...] copy faxed has been acknowledged. Queued to: [id number] T4, FREE Reviewed date:03/11/2025 08:16:11 AM Interpretation: Performing Lab:NL2, [facility] Jaye Jordyn Rhoades Notes/Report: FASTING:YES FASTING: YES T4, FREE 1.1 0.8-1.8 ng/dL TSH Reviewed date:03/11/2025 08:16:11 AM Interpretation: Performing Lab:NL2, [facility] Center[facility] [place] [phone] [place] [address] J[facility]yn [facility] Notes/Report: FASTING:YES FASTING: YES TSH 0.95 0.40-4.50 mIU/L T3, FREE Reviewed date:03/11/2025 08:16:11 AM Interpretation: Performing Lab:NL2, [facility] [place] [address] Jordyn [facility] Notes/Report: FASTING:YES FASTING: YES T3, FREE 3.2 2.3-4.2 pg/mL Reason For Referral No Information Medications Medication SIG (Take, Route, Frequency, Duration) Notes Start Date End Date Status Prazosin HCl 5 MG TAKE 1 CAPSULE BY [facility] DAILY AT BEDTIME; Duration: 90 Active AGILE customer insight G6 Sensor - APPLY ONE SENSOR SUBCUTANEOUSLY EVERY 10 DAYS; Duration: 30 Active Rosuvastatin Calcium 20 MG 1 tablet Orally Once a day; Duration: 90 days Active Olmesartan Medoxomil 40 MG 1 tablet Orally Once a day; Duration: 90 days 02/18/2024 Active metFORMIN HCl ER 500 MG TAKE 2 TABLETS B Y MOUTH TWICE DAILY; Duration: 30 Active Carvedilol 25 MG TAKE 1 TABLET BY [facility] TWICE DAILY WITH FOOD; Duration: 90 Active Mounjaro 12.5 MG/0.5ML ADMINISTER 12.5 M G UNDER THE SKIN WEEKLY; Duration: 28 Active CeleBREX 200 MG 1 capsule with food Orally Once a day Active [employer] G6 Clinical Trials Manager - as directed; Durati on: 30 days 11/01/2023 Active AGILE customer insight G6 Transmitter - apply one sensor subcutaneously every 10 days for DX E11.9; Duration: 30 days Active Immunizations Vaccine Route Administration Date Status Comme nts influenza IM Intramuscular 10/15/2023 Administered SHINGRIX IM Intramuscular 11/05/2023 Administered SHINGRIX IM Intramuscular 08/06/2024 Administered SHINGRIX IM Intramuscular 11/09/2024 Administered Tdap IM Intramuscular 11/09/2024 Administered Problems Problem Type SNOMED Code ICD Code Onset Dates Problem Status W/U Status Risk Notes Problem Vitamin B>12< deficiency anaemia (48106202) Vitamin B12 deficiency anemia, unspecified (D51.9) Active confirmed Problem Vitamin D deficiency (84531908) Vitamin D deficiency, unspecified (E55.9) Active confirmed Problem Essential hypertension (88445837) Essential (primary) hypertension (I10) Active confirmed Problem Excessive thirst (01327357) Polydipsia (R63.1) Active confirmed Problem Screening for malignant neoplasm of prostate (662248027) Encounter for screening for malignant neoplasm of prostate (Z12.5) Active confirmed Problem Endocrine/metabolic screening (373762347) Encounter for screening for other suspected endocrine disorder (Z13.29) Active confirmed Problem Screening procedure (59082555) Encounter for screening, unspecified (Z13.9) Active confirmed Problem Essential hypertension (06121440) Essential hypertension (I10) Active confirmed Problem Morbid obesity (215489350) Morbid obesity (E66.01) Active confirmed Problem Backache (753948103) Back pain, unspecified back location, unspecified back pain laterality, unspecified chronicity (M54.9) Active confirmed Problem Pure hypercholesterolemia (508437311) Pure hypercholesterolemia (E78.00) Active confirmed Problem Acquired hypothyroidism (269783104) Acquired hypothyroidism (E03.9) Active confirmed Problem Hyperlipoproteinemia (2286088) Acquired hyperlipoproteinemia (E78.5) Active confirmed Problem Seasonal allergy (345127639) Seasonal allergies (J30.2) Active confirmed Problem Vitamin D deficiency (02773671) Vitamin D deficiency (E55.9) Active confirmed Problem Type II diabetes mellitus without complication (490770264) Type 2 diabetes mellitus without complication, without long-term current use of insulin (E11.9) Active confirmed Problem Dyslipidemia (730651574) Dyslipidemia (E78.5) Active confirmed Problem Obstructive sleep apnea (71702825) Obstructive sleep apnea (G47.33) Active confirmed Problem Hyperglycemia due to type 2 diabetes mellitus (117362260104426) Poorly controlled diabetes mellitus (E11.65) Active confirmed Problem Body mass index 40+ - severely obese (753640437) BMI 45.0-49.9, adult (Z68.42) Active confirmed Vital Signs Heart Rate 90 /min 07/13/2025 Oximetry 97 % 07/13/2025 Blood pressure diastolic 78 mm Hg 07/13/2025 Height 71 in 07/13/2025 Blood pressure systolic 134 mm Hg 07/13/2025 Weight 317.6 lbs 07/13/2025 BMI 44.29 kg/m2 07/13/2025 Encounters [facility]counter [facility] Date [facility] [address] [address] [facility]/06/[facility]24 EMILY SCOTT Dyslipidemia E78.5 ; Type 2 diabetes mellitus without complication, without long-term current use of insulin E11.9 ; Acquired hypothyroidism E03.9 ; Peripheral edema R60.9 and Encounter for immunization Z23 [address] [address] 11/09/2024 EMILY SCOTT Type 2 diabetes deanne itus without complication, without long-term current use of insulin E11.9 ; Annual physical exam Z00.00 ; Dyslipidemia E78.5 ; Acquired hypothyroidism E03.9 ; Peripheral edema R60.9 and Encounter for immunization Z23 [address] [address] 03/09/2025 EMILY SCOTT Type 2 diabetes deanne itus without complication, without long-term current use of insulin E11.9 ; Dyslipidemia E78.5 ; Acquired hypothyroidism E03.9 ; Peripheral edema R60.9 and Essential hypertension I10 [address] [address] 07/13/2025 EMILY SCOTT Type 2 diabetes deanne itus without complication, without long-term current use of insulin E11.9 ; Dyslipidemia E78.5 ; Acquired hypothyroidism E03.9 ; Peripheral edema R60.9 ; Essential hypertension I10 and En[facility] for examination of blood pressure without abnormal findings [facility] [address] [place] [address] 03/17/2025 EMILY SCOTT Assessments Encounter Date Diagnosis [...] Dictation was accomplished with the use of [employer] voice recognition software, prone to medical misidentifications [...] Dictation was accomplished with the use of [employer] voice recognition software, prone to medical misidentifications [...] log exercise and discussed fitness Apps like [employer] which can help keep log off calories [...] Dictation was accomplished with the use of [employer] voice recognition software, prone to medical misidentifications [...] log exercise and discussed fitness Apps like [employer] which can help keep log off calories [...] Dictation was accomplished with the use of [employer] voice recognition software, prone to medical misidentifications [...] Dictation was accomplished with the use of [employer] voice recognition software, prone to medical misidentifications [...] Dictation was accomplished with the use of [employer] voice recognition software, prone to medical misidentifications and grammatical errors. This is unintentional and the practitioner does try to identify and correct these, but some could still be present. Please do not hesitate to contact practitioner for clarification. All questions answered to patients satisfaction. Patient verbalized understanding of diagnosis and treatments explained. To call sooner prior to next visit it any questions/concerns arise. 07/13/2025 Type 2 diabetes mellitus without complication, without long-term current use of insulin (ICD-10 - E11.9) # T2DM Patient is currently taking metformin 500 mg x 2 tabs BID and Mounjaro 12.5 mg weekly injection. I States blood sugars have been well controlled, [...] Dictation was accomplished with the use of [employer] voice recognition software, prone to medical misidentifications and grammatical errors. This is unintentional and the practitioner does try to identify and correct these, but some could still be present. Please do not hesitate to contact practitioner for clarification. All questions answered to patients satisfaction. Patient verbalized understanding of diagnosis and treatments explained. To call sooner prior to next visit it any questions/concerns arise. 07/13/2025 Dyslipidemia (ICD-10 - E78.5) # T2DM Patient is currently taking metformin 500 mg x 2 tabs BID and Mounjaro 12.5 mg weekly injection. I States blood sugars have been well controlled, [...] Dictation was accomplished with the use of [employer] voice recognition software, prone to medical misidentifications and grammatical errors. This is unintentional and the practitioner does try to identify and correct these, but some could still be present. Please do not hesitate to contact practitioner for clarification. All questions answered to patients satisfaction. Patient verbalized understanding of diagnosis and treatments explained. To call sooner prior to next visit it any questions/concerns arise. 07/13/2025 Acquired hypothyroidism (ICD-10 - E03.9) # T2DM Patient is currently taking metformin 500 mg x 2 tabs BID and Mounjaro 12.5 mg weekly injection. I States blood sugars have been well controlled, [...] Dictation was accomplished with the use of [employer] voice recognition software, prone to medical misidentifications [...] Dictation was accomplished with the use of [employer] voice recognition software, prone to medical misidentifications [...] Dictation was accomplished with the use of [employer] voice recognition software, prone to medical misidentifications [...] log exercise and discussed fitness Apps like [employer] which can help keep log off calories [...] Dictation was accomplished with the use of [employer] voice recognition software, prone to medical misidentifications [...] Dictation was accomplished with the use of [employer] voice recognition software, prone to medical misidentifications [...] log exercise and discussed fitness Apps like [employer] which can help keep log off calories [...] Dictation was accomplished with the use of [employer] voice recognition software, prone to medical misidentifications [...] Dictation was accomplished with the use of [employer] voice recognition software, prone to medical misidentifications and grammatical errors. This is unintentional and the practitioner does try to identify and correct these, but some could still be present. Please do not hesitate to contact practitioner for clarification. All questions answered to patients satisfaction. Patient verbalized understanding of diagnosis and treatments explained. To call sooner prior to next visit it any questions/concerns arise. 07/13/2025 Peripheral edema (ICD-10 - R60.9) # T2DM Patient is currently taking metformin 500 mg x 2 tabs BID and Mounjaro 12.5 mg weekly injection. I States blood sugars have been well controlled, [...] Dictation was accomplished with the use of [employer] voice recognition software, prone to medical misidentifications and grammatical errors. This is unintentional and the practitioner does try to identify and correct these, but some could still be present. Please do not hesitate to contact practitioner for clarification. All questions answered to patients satisfaction. Patient verbalized understanding of diagnosis and treatments explained. To call sooner prior to next visit it any questions/concerns arise. 07/13/2025 Essential hypertension (ICD-10 - I10) # T2DM Patient is currently taking metformin 500 mg x 2 tabs BID and Mounjaro 12.5 mg weekly injection. I States blood sugars have been well controlled, [...] Dictation was accomplished with the use of [employer] voice recognition software, prone to medical misidentifications [...] log exercise and discussed fitness Apps like [employer] which can help keep log off calories [...] Dictation was accomplished with the use of [employer] voice recognition software, prone to medical misidentifications [...] Dictation was accomplished with the use of [employer] voice recognition software, prone to medical misidentifications [...] Dictation was accomplished with the use of [employer] voice recognition software, prone to medical misidentifications [...] log exercise and discussed fitness Apps like [employer] which can help keep log off calories [...] Dictation was accomplished with the use of [employer] voice recognition software, prone to medical misidentifications and grammatical errors. This is unintentional and the practitioner does try to identify and correct these, but some could still be present. Please do not hesitate to contact practitioner for clarification. All questions answered to patients satisfaction. Patient verbalized understanding of diagnosis and treatments explained. To call sooner prior to next visit it any questions/concerns arise. 07/13/2025 Encounter for examination of blood pressure without abnormal findings (ICD-10 - Z01.30) # T2DM Patient is currently taking metformin 500 mg x 2 tabs BID and Mounjaro 12.5 mg weekly injection. I States blood sugars have been well controlled, [...] Dictation was accomplished with the use of [employer] voice recognition software, prone to medical misidentifications [...] Treatment Pending Test Test Name Order Date Microalb/Creat Ratio, Arelism Ur LIPID PANEL, STANDARD 07/13/2025 LIPID PANEL, STANDARD 11/05/2023 LIPID PANEL, STANDARD 04/30/2024 COMPREHENSIVE METABOLIC PANEL 07/13/2025 COMPREHENSIVE METABOLIC PANEL 04/30/2024 COMPREHENSIVE METABOLIC PANEL 11/05/2023 CBC (INCLUDES DIFF/PLT) 11/05/2023 CBC (INCLUDES DIFF/PLT) 04/30/2024 CBC (INCLUDES DIFF/PLT) 07/13/2025 URINALYSIS, COMPLETE 11/05/2023 URINALYSIS, COMPLETE 04/30/2024 URINALYSIS, COMPLETE 07/13/2025 HEMOGLOBIN A1c 11/19/2022 HEMOGLOBIN A1c 04/30/2024 HEMOGLOBIN A1c 07/13/2025 INSULIN 11/19/2022 VITAMIN B12 07/13/2025 PSA (FREE AND TOTAL) 07/13/2025 PSA, TOTAL 11/05/2023 T4, FREE 04/30/2024 TSH 11/05/2023 TSH 04/30/2024 T3, FREE 04/30/2024 VITAMIN D,25-OH,TOTAL,IA 07/13/2025 TSH+T3+Free T4+T3 Free 07/13/2025 Next Appt Details Provider Name:EMILY SCOTT, 11/15/2025 03:15:00 PM, [address], [place], [address], Insurance Providers Payer Name Payer Address Payer Phone Subscriber Number Group Number Insured Name Patient Relationship to Insured Coverage Start Date Coverage End Date [facility] [address] [place] [address] [id number] John Mancuso Self - patient is the insured 2 Medications Administered Medication Instructions Date of Administration Dosage Notes MICC B12 INJECTION 12/06/2022 [id number] Medical (General) [...]
--- OUTSIDE RECORDS SUMMARY | 2025-07-26 18:29 | XMS_ITS | Encounter Summary ---
Author Organization [facility] Address [address] [place] [address] Care Team Providers Care Timber Incisor Operator Name Role Phone Abrahan Hastings MD Unavailable [phone] Andrea Owens MD Primary Care Provider [phone] Carlos Eduardo Fulton MD Unavailable [phone] Jose Jolly MD Unavailable [phone] Encounter Details Date Type Department Care Team (Late st Contact Info) Description 03/04/2023 Scanned Document [facility] [address] [place] [address] Provider, Generic Social History Tobacco [...] on filedocumented in this encounter Care Teams Timber Incisor Operator Relationship Specialty Start Date End Date Andrea Owens MD [address] [place] [address] PCP - General Internal Medicine 02/01/23 Abrahan Hastings MD [address] [place] [address] Surgery, Orthopedic 02/01/23 Carlos Eduardo Fulton MD [address] [place] [address] Cardiovascular Disease 03/20/23 Jose Jolly MD [address] [address] Primary Rack Cleaner Cardiovascular Disease 12/12/23 documented as of this encounter
--- OUTSIDE RECORDS SUMMARY | 2025-07-26 18:29 | XMS_ITS | Patient Health Record ---
Author Organization [facility] Address [address] [place] [address] Care Team Providers Care Product Support Analyst Name Role Phone Owens, Andrea Primary Care Provider Romana Valles Unavailable [phone] Allergies No Known Allergies Results Component Value [...] toe of lesser toe of right foot (5248632318696510 8) Other hammer toe(s) (acquired), right foot (M20.41) Active confirmed Problem Acquired hammer toe of lesser toe of left foot (1940759368393394 3) Other hammer toe(s) (acquired), left foot (M20.42) Active confirmed Problem Polyneuropathy due to type 2 diabetes mellitus (504011520) Type 2 diabetes mellitus with diabetic polyneuropathy (E11.42) Active confirmed Vital Signs Blood pressure diastolic 70 mm Hg 05/13/2025 Height 6ft in 05/13/2025 Blood pressure systolic 140 mm Hg 05/13/2025 Weight 315 lbs 05/13/2025 BMI 42.72 kg/m2 05/13/2025 Encounters Encounter Location Date Provider Diagnosis [facility] [address] [place] [address] 12/14/2024 Romana Leyva Onychomycosis B35.1 ; Type 2 diabetes mellitus with diabetic polyneuropathy E11.42 ; Tinea pedis of both feet B35.3 ; Other hammer toe(s) (acquired), right foot M20.41 and Other hammer toe(s) (acquired), left foot M20.42 [facility] [address] [place] [address] 05/13/2025 Romana Leyva Onychomycosis B35.1 ; Type 2 diabetes mellitus with diabetic polyneuropathy E11.42 and Tinea pedis of both feet B35.[address] [facility] [address] [address] 11/26/2024 Romana Perica [facility] [address] 12/22/2024 [facility]ana Per[facility] [address] [place] [address] 02/19/2025 Romana Perica [facility] [address] [place] [address] 04/20/2025 Romana Perica [address] [address] 05/13/2025 Romana Leyva Assessments Encounter Date Diagnosis [...] (LFT) 12/14/2024 *Liver Function Test (LFT) 05/13/2025 81291-Zzkggimf Plate 09/02/2018 38938-UFH 04/30/2014 10887- Debride <25 sq cm 10/30/2013 38731- Debride <25 sq cm 06/15/2014 78041-IBFLFHO SKIN/TISSUE 05/19/2014 15806 I&D ABSCESS- SIMPLE,SINGLE 015 10695 I&D ABSCESS- SIMPLE,SINGLE 014 97064 I&D ABSCESS- SIMPLE,SINGLE 013 63101-TJHO SKIN LESIONS, OVER 4 05/29/20 24 21434- Nail Unit Biopsy 09/02/2018 Insurance Providers Payer Name Payer Address Payer Phone Subscriber Number Group Number Insured Name Patient Relationship to Insured Coverage Start Date Coverage End Date [facility] [address] [facility] [place] [address] [id number] John Mancuso Self - patient is the insured Medical (General) History Medical History History ICD Code Anemia Back,Hip,and Knee pain covid-19 Diabetic high blood pressure Surgical History Surgery Date(Month/Year) left wrist surgery nasal surgery knee surgery 04/12
--- OUTSIDE RECORDS SUMMARY | 2025-07-26 18:29 | XMS_ITS | Encounter Summary ---
Author Organization [facility] Address [address] [place] [address] Care Team Providers Care Doctor Of Naprapathy Name Role Phone Abrahan Hastings MD Unavailable [phone] Andrea Owens MD Primary Care Provider [phone] Carlos Eduardo Fulton MD Unavailable [phone] Jose Jolly MD Unavailable [phone] Encounter Details Date Type Department Care Team ([facility] st Contact Info) Description 04/19/2023 Scanned Document [facility] [address] [phone] Abrahan Hastings MD [address] [place] [id number] Social History Tobacco Use Types Packs/Day Years [...] on filedocumented in this encounter Care Teams Doctor Of Naprapathy Relationship Specialty Start Date End Date Andrea Owens MD [address] [place] [address] PCP - General Internal Medicine 02/01/23 Abrahan Hastings MD [address] [place] [address] Surgery, Orthopedic 02/01/23 Carlos Eduardo Fulton MD [address] [place] [address] Cardiovascular Disease 03/20/23 Jose Jolly MD [address] [place] [address] Primary Wheel Blocker Cardiovascular Disease 12/12/23 documented as of this encounter
--- OUTSIDE RECORDS SUMMARY | 2025-07-26 18:29 | XMS_ITS | Encounter Summary ---
Author Organization [facility] Address [address] [place] [address] Care Team Providers Care Crime Prevention Worker Name Role Phone Abrahan Hastings MD Unavailable Andrea Owens MD Primary Care Provider [phone] Carlos Eduardo Fulton MD Unavailable Jose Jolly MD Unavailable [phone] Encounter Details Date Type Department Care Team (Late st Contact Info) Description 03/04/2023 Erroneous Encounter [facility] [address] [place] [address] Hiram Paz MD [address] [place] [address] Social History Tobacco Use Types [...] on filedocumented in this encounter Care Teams Crime Prevention Worker Relationship Specialty Start Date End Date Andrea Owens MD [address] [place] [address] PCP - General Internal Medicine 02/01/23 Abrahan Hastings MD [address] [place] [address] Surgery, Orthopedic 02/01/23 Carlos Eduardo Fulton MD [address] [place] [address] Cardiovascular Disease 03/20/23 Jose Jolly MD [address] [place] [address] Primary Auto Clutch Specialist Cardiovascular Disease 12/12/23 documented as of this encounter
== END 2025-07-26 16:18 | disposition home or self-care (01) ==
LOC: HO.HMGAL 16:17
PROVIDERS: PCP Internal Medicine; Visit Provider Registered Nurse Emergency
DX: J30.89 Other allergic rhinitis (principal)
CPT/HCPCS: 95117; 95165

== ENCOUNTER 2025-08-04 16:18 | Outpatient (AMB) | payer OTHER, SELFPAY ==
--- OUTSIDE RECORDS SUMMARY | 2024-11-26 06:30 | XMS_ITS ---
Author Organization [facility] Address [address] [place] [address] Care Team Providers Care Pattern Cleaner Name Role Phone Andrea Owens Primary Care Provider Romana Valles Unavailable [phone] Encounters Encounter Location Date Provider Diagnosis [address] [address] 11/26/2024 Romana Leyva Plan Of Treatment No Information Progress Notes * Sharee MANCUSOOB:1970 ([age] yo M)Acc No.[id number]:11/26/2024 Progress Note Patient: John TIRADO Provider: Mari Leyva DPM :1970 A ge:54 Y S ex:Male Date:11/26/2024 Address:[address] [place] [address], [place] Pcp:Andrea Owens Subjective: * Chief Complaints: [...] 0 11/26/2024 Generated for Traceei kai/Jennifer/eTransmitting on: 1 08:28 AM EDT
--- OUTSIDE RECORDS SUMMARY | 2025-02-22 11:45 | XMS_ITS ---
Author Organization [facility] Address [address] [place] [address] Care Team Providers Care Design Verification Engineer Name Role Phone Andrea Owens Primary Care Provider Romana Valles Unavailable [phone] Encounters Encounter Location Date Provider Diagnosis [address] [address] 02/22/2025 Romana Leyva Plan Of Treatment No Information Progress Notes * Sharee MANCUSOOB:1970 ([age] yo M)Acc No.[id number]:02/22/2025 Progress Note Patient: John TIRADO Provider: Mari Leyva DPM :1970 A ge:54 Y S ex:Male Date:02/22/2025 Address:[address] [place] [address], [place] Pcp:Andrea Owens Subjective: * Chief Complaints: [...] 02/22/2025 Generated for Traceei kai/Jennifer/eTransmitting on: 1 08:27 AM EDT
--- OUTSIDE RECORDS SUMMARY | 2025-04-22 12:00 | XMS_ITS ---
[facility] Address [address] [place] [address] Care Team Providers Care Marble Installer Name Role Phone Andrea Owens Primary Care Provider Romana Valles Unavailable [phone] Encounters Encounter Location Date Provider Diagnosis [address] [address] 04/22/2025 Romana Leyva Plan Of Treatment No Information Progress Notes * Sharee MANCUSOOB:1970 ([age] yo M)Acc No.[id number]:04/22/2025 Progress Note Patient: John TIRADO Provider: Mari Leyva DPM :1970 A ge:54 Y S ex:Male Date:04/22/2025 Address:[address] [place] [address], [place] Pcp:Andrea Owens Subjective: * Chief Complaints: [...] DPM Date: 0 04/22/2025 Generated for Traceei kai/Jennifer/eTransmitting on: 08:27 AM EDT
--- OUTSIDE RECORDS SUMMARY | 2025-08-04 19:24 | XMS_ITS | Patient Health Record ---
Author Organization [facility] [address] Address [address] [place] [address] Care Team Providers Care Strategic Accounts Manager Name Role Phone EMILY SCOTT Unavailable [phone] Abhijeet Sevilla Unavailable [phone] Allergies No Known Allergies Results Component Value Reference Range Notes T3, FREE Reviewed date:03/11/2025 08:16:11 AM Interpretation: [facility] Ricardo Rhoades Notes/Report: FASTING:YES FASTING: YES T3, FREE 3.2 2.3-4.2 pg/mL TSH Reviewed date:03/11/2025 08:16:11 AM Interpretation: Performing [facility] [id number] Ricardo Rhoades Notes/Report: FASTING:YES FASTING: YES TSH 0.95 0.40-4.50 mIU/L T4, FREE Reviewed date:03/11/2025 08:16:11 AM Interpretation: Performing [facility] Ricardo Rhoades Notes/Report: FASTING:YES FASTING: YES T4, FREE 1.1 0.8-1.8 ng/dL HEMOGLOBIN A1c Reviewed date:03/11/2025 08:14:47 AM Interpretation: Performing [facility] Ricardo Rhoades Notes/Report: FASTING:YES FASTING: YES HEMOGLOBIN [...] copy faxed has been acknowledged. Queued to: [id number] URINALYSIS, COMPLETE Reviewed date:03/11/2025 08:16:11 AM Interpretation: Performing [facility] Ricardo Rhoades Notes/Report: FASTING:YES FASTING: YES [...] Reviewed date:03/11/2025 08:15:45 AM Interpretation: Performing [facility] Ricardo Rhoades Notes/Report: FASTING:YES FASTING: YES [...] MPV 11.2 7.5-12.5 fL ABSOLUTE NEUTROPHILS [phone] cells/uL ABSOLUTE LYMPHOCYTES [phone] cells/uL ABSOLUTE MONOCYTES 616 200-950 cells/uL ABSOLUTE EOSINOPHILS 61 15-500 cells/uL ABSOLUTE BASOPHILS 19 0-200 cells/uL NEUTROPHILS 48.2 LYMPHOCYTES 37.0 MONOCYTES 13.1 EOSINOPHILS 1.3 BASOPHILS 0.4 COMPREHENSIVE METABOLIC PANE L Reviewed date:03/11/2025 08:16:11 AM Interpretation: Performing Lab[facility] Ricardo Rhoades Notes/Report: FASTING:YES FASTING: YES [...] Reviewed date:03/11/2025 08:15:51 AM Interpretation: Performing [facility] Ricardo Stollzack Notes/Report: FASTING:YES FASTING: YES CHOLESTEROL, TOTAL 120 [...] equation in the estimation of LDL-C. Mark LOPEZ et al. VANESSA. 2013;310(19): 4009-6100 (http://education.[employer].Rock My World/faq/HTV862) CHOL/HDLC RATIO 3.5 <5.0 (calc) NON HDL [...] UTH DAILY AT BEDTIME; Duration: 90 Active Carvedilol 25 MG TAKE 1 TABLET BY LUIZA TWICE DAILY WITH FOOD; Duration: 90 Active Rosuvastatin Calcium 20 MG 1 tablet Orally Once a day; Duration: 90 days Active Olmesartan Medoxomil 40 MG 1 tablet Orally Once a day; Duration: 90 days 02/18/2024 Active Dexcom G6 Student Success Advisor - as directed; Durati on: 30 days 11/01/2023 Active Dexcom G6 Transmitter - apply one sensor subcutaneously every 10 days for DX E11.9; Duration: 30 days Active CeleBREX 200 MG 1 capsule with food Orally Once a day Active metFORMIN HCl ER 500 MG TAKE 2 TABLETS B Y MOUTH TWICE DAILY; Duration: 30 Active Dexcom G6 Sensor - APPLY ONE SENSOR SUBCUTANEOUSLY EVERY 10 DAYS; Duration: 30 Active Mounjaro 12.5 MG/0.5ML ADMINISTER 12.5 M G UNDER THE SKIN WEEKLY; Duration: 28 Active Immunizations Vaccine Route Administration Date Status Comme nts influenza IM Intramuscular 10/15/2023 Administered SHINGRIX IM Intramuscular 11/05/2023 Administered SHINGRIX IM Intramuscular 08/06/2024 Administered SHINGRIX IM Intramuscular 11/09/2024 Administered Tdap IM Intramuscular 11/09/2024 Administered Problems Problem Type SNOMED Code ICD Code Onset Dates Problem Status W/U Status Risk Notes Problem Vitamin B>12< deficiency anaemia (55018330) Vitamin B12 deficiency anemia, unspecified (D51.9) Active confirmed Problem Vitamin D deficiency (23351154) Vitamin D deficiency, unspecified (E55.9) Active confirmed Problem Essential hypertension (53639277) Essential (primary) hypertension (I10) Active confirmed Problem Excessive thirst (78550547) Polydipsia (R63.1) Active confirmed Problem Screening for malignant neoplasm of prostate (450500107) Encounter for screening for malignant neoplasm of prostate (Z12.5) Active confirmed Problem Endocrine/metabolic screening (351666282) Encounter for screening for other suspected endocrine disorder (Z13.29) Active confirmed Problem Screening procedure (86667182) Encounter for screening, unspecified (Z13.9) Active confirmed Problem Essential hypertension (23794625) Essential hypertension (I10) Active confirmed Problem Morbid obesity (654859102) Morbid obesity (E66.01) Active confirmed Problem Backache (637918050) Back pain, unspecified back location, unspecified back pain laterality, unspecified chronicity (M54.9) Active confirmed Problem Pure hypercholesterolemia (392494501) Pure hypercholesterolemia (E78.00) Active confirmed Problem Acquired hypothyroidism (990577809) Acquired hypothyroidism (E03.9) Active confirmed Problem Hyperlipoproteinemia (9282022) Acquired hyperlipoproteinemia (E78.5) Active confirmed Problem Seasonal allergy (987462051) Seasonal allergies (J30.2) Active confirmed Problem Vitamin D deficiency (47802240) Vitamin D deficiency (E55.9) Active confirmed Problem Type II diabetes mellitus without complication (629917717) Type 2 diabetes mellitus without complication, without long-term current use of insulin (E11.9) Active confirmed Problem Dyslipidemia (917405624) Dyslipidemia (E78.5) Active confirmed Problem Obstructive sleep apnea (29848072) Obstructive sleep apnea (G47.33) Active confirmed Problem Hyperglycemia due to type 2 diabetes mellitus (414470165560492) Poorly controlled diabetes mellitus (E11.65) Active confirmed Problem Body mass index 40+ - severely obese (431714685) BMI 45.0-49.9, adult (Z68.42) Active confirmed Vital Signs Heart Rate 84 /min 08/04/2025 Oximetry 98 % 08/04/2025 Blood pressure diastolic 86 mm Hg 08/04/2025 Height 71 in 08/04/2025 Blood pressure systolic 126 mm Hg 08/04/2025 Weight 320.4 lbs 08/04/2025 BMI 44.68 kg/m2 08/04/2025 Encounters Encounter Location Date Provider Diagnosis [address] 08/04/2025 Abhijeet Di Urine troubles R39.8 9 ; Mass of left testicle N50.89 ; Testicular pain, left N50.812 and Blood pressure check Z01. [address] [address] 08/06/2024 EMILY SCOTT Dyslipidemia E78.5 ; Type 2 diabetes mellitus without complication, without long-term current use of insulin E11.9 ; Acquired hypothyroidism E03.9 ; Peripheral edema R60.9 and Encounter for immunization Z23 [address] [address] 11/09/2024 EMILY SCOTT Type 2 diabetes deanne itus without complication, without long-term current use of insulin E11.9 ; Annual physical exam Z00.00 ; Dyslipidemia E78.5 ; Acquired hypothyroidism E03.9 ; Peripheral edema R60.9 and Encounter for immunization Z23 [address] 03/09/2025 EMILY SCOTT Type 2 diabetes deanne itus without complication, without long-term current use of insulin E11.9 ; Dyslipidemia E78.5 ; Acquired hypothyroidism E03.9 ; Peripheral edema R60.9 and Essential hypertension I10 [address] 07/13/2025 EMILY SCOTT Type 2 diabetes deanne itus without complication, without long-term current use of insulin E11.9 ; Dyslipidemia E78.5 ; Acquired hypothyroidism E03.9 ; Peripheral edema R60.9 ; Essential hypertension I10 and Encounter for examination of blood pressure without abnormal findings Z01.30 [facility] [address] [place] [id number] 03/17/2025 EMILY SCOTT Assessments Encounter Date Diagnosis [...] Dictation was accomplished with the use of [employer] voice recognition software, prone to medical misidentifications [...] Dictation was accomplished with the use of [employer] voice recognition software, prone to medical misidentifications [...] log exercise and discussed fitness Apps like [employer] which can help keep log off calories [...] Dictation was accomplished with the use of [employer] voice recognition software, prone to medical misidentifications [...] log exercise and discussed fitness Apps like [employer] which can help keep log off calories [...] Dictation was accomplished with the use of [employer] voice recognition software, prone to medical misidentifications [...] Dictation was accomplished with the use of [employer] voice recognition software, prone to medical misidentifications [...] Dictation was accomplished with the use of [employer] voice recognition software, prone to medical misidentifications [...] Dictation was accomplished with the use of [employer] voice recognition software, prone to medical misidentifications [...] Dictation was accomplished with the use of [employer] voice recognition software, prone to medical misidentifications and grammatical errors. This is unintentional and the practitioner does try to identify and correct these, but some could still be present. Please do not hesitate to contact practitioner for clarification. All questions answered to patients satisfaction. Patient verbalized understanding of diagnosis and treatments explained. To call sooner prior to next visit it any questions/concerns arise. 08/04/2025 Urine troubles (ICD-10 - R39.89) Patient presents with a history of new onset left testicular mass and associated dull achy pain for the past week. He has a history of a similar mass with a similar type of pain that eventually subsided. He says this episode on the right testicle happened within the past 5 years. On record search could not find any mention of this previous episode. On physical exam both masses are nontender palpable and located on the top or superior aspect of the testes. Urinalysis from 08/04/2025 unremarkable except for small leukocytes but patient is not having any UTI symptoms.No concern for Manav's, torsion, varicocele hydrocele or hernia, STI. Most probably benign causes likely to be epididymal cyst or spermatocele or a tunica albuginea cyst. Will get an ultrasound of the testicles for further evaluation. Will call the patient with results. Educated on ED criteria and to reach out with any new concerns. All questions answered to patients satisfaction. Patient verbalized understanding of diagnosis and treatments explained. To call sooner prior to next visit it any questions/concerns arise. Case discussed with collaborating physician Gita Owens who reviewed the assessment and plan. Chart, medications, labs, vital signs reviewed. Dictation was accomplished with the use of Bil[employer]esk voice recognition software, prone to medical misidentifications and grammatical errors. This is unintentional and the practitioner does try to identify and correct these, but some could still be present. Please do not hesitate to contact practitioner for clarification. 07/13/2025 Acquired hypothyroidism (ICD-10 - E03.9) # [...] Dictation was accomplished with the use of [employer] voice recognition software, prone to medical misidentifications [...] Dictation was accomplished with the use of [employer] voice recognition software, prone to medical misidentifications [...] Dictation was accomplished with the use of [employer] voice recognition software, prone to medical misidentifications [...] log exercise and discussed fitness Apps like [employer] which can help keep log off calories [...] Dictation was accomplished with the use of [employer] voice recognition software, prone to medical misidentifications and grammatical errors. This is unintentional and the practitioner does try to identify and correct these, but some could still be present. Please do not hesitate to contact practitioner for clarification. All questions answered to patients satisfaction. Patient verbalized understanding of diagnosis and treatments explained. To call sooner prior to next visit it any questions/concerns arise. 08/04/2025 Mass of left testicle (ICD-10 - N50.89) Patient presents with a history of new onset left testicular mass and associated dull achy pain for the past week. He has a history of a similar mass with a similar type of pain that eventually subsided. He says this episode on the right testicle happened within the past 5 years. On record search could not find any mention of this previous episode. On physical exam both masses are nontender palpable and located on the top or superior aspect of the testes. Urinalysis from 08/04/2025 unremarkable except for small leukocytes but patient is not having any UTI symptoms.No concern for Manav's, torsion, varicocele hydrocele or hernia, STI. Most probably benign causes likely to be epididymal cyst or spermatocele or a tunica albuginea cyst. Will get an ultrasound of the testicles for further evaluation. Will call the patient with results. Educated on ED criteria and to reach out with any new concerns. All questions answered to patients satisfaction. Patient verbalized understanding of diagnosis and treatments explained. To call sooner prior to next visit it any questions/concerns arise. Case discussed with collaborating physician Gita Owens who reviewed the assessment and plan. Chart, medications, labs, vital signs reviewed. Dictation was accomplished with the use of Bil[employer]esk voice recognition software, prone to medical misidentifications and grammatical errors. This is unintentional and the practitioner does try to identify and correct these, but some could still be present. Please do not hesitate to contact practitioner for clarification. 08/06/2024 Peripheral edema (ICD-10 - R60.9) # [...] Dictation was accomplished with the use of Bil[employer]esk voice recognition software, prone to medical misidentifications [...] log exercise and discussed fitness Apps like [employer] which can help keep log off calories [...] Dictation was accomplished with the use of Billdesk voice recognition software, prone to medical misidentifications [...] Dictation was accomplished with the use of Bil[employer]esk voice recognition software, prone to medical misidentifications [...] Dictation was accomplished with the use of [employer] voice recognition software, prone to medical misidentifications and grammatical errors. This is unintentional and the practitioner does try to identify and correct these, but some could still be present. Please do not hesitate to contact practitioner for clarification. All questions answered to patients satisfaction. Patient verbalized understanding of diagnosis and treatments explained. To call sooner prior to next visit it any questions/concerns arise. 08/04/2025 Testicular pain, left (ICD-10 - N50.812) Patient presents with a history of new onset left testicular mass and associated dull achy pain for the past week. He has a history of a similar mass with a similar type of pain that eventually subsided. He says this episode on the right testicle happened within the past 5 years. On record search could not find any mention of this previous episode. On physical exam both masses are nontender palpable and located on the top or superior aspect of the testes. Urinalysis from 08/04/2025 unremarkable except for small leukocytes but patient is not having any UTI symptoms.No concern for Manav's, torsion, varicocele hydrocele or hernia, STI. Most probably benign causes likely to be epididymal cyst or spermatocele or a tunica albuginea cyst. Will get an ultrasound of the testicles for further evaluation. Will call the patient with results. Educated on ED criteria and to reach out with any new concerns. All questions answered to patients satisfaction. Patient verbalized understanding of diagnosis and treatments explained. To call sooner prior to next visit it any questions/concerns arise. Case discussed with collaborating physician Gita Owens who reviewed the assessment and plan. Chart, medications, labs, vital signs reviewed. Dictation was accomplished with the use of Billdesk voice recognition software, prone to medical misidentifications and grammatical errors. This is unintentional and the practitioner does try to identify and correct these, but some could still be present. Please do not hesitate to contact practitioner for clarification. 07/13/2025 Essential hypertension (ICD-10 - I10) # [...] Dictation was accomplished with the use of Bil[employer]esk voice recognition software, prone to medical misidentifications and grammatical errors. This is unintentional and the practitioner does try to identify and correct these, but some could still be present. Please do not hesitate to contact practitioner for clarification. All questions answered to patients satisfaction. Patient verbalized understanding of diagnosis and treatments explained. To call sooner prior to next visit it any questions/concerns arise. 08/04/2025 Blood pressure check (ICD-10 - Z01.30) Patient presents with a history of new onset left testicular mass and associated dull achy pain for the past week. He has a history of a similar mass with a similar type of pain that eventually subsided. He says this episode on the right testicle happened within the past 5 years. On record search could not find any mention of this previous episode. On physical exam both masses are nontender palpable and located on the top or superior aspect of the testes. Urinalysis from 08/04/2025 unremarkable except for small leukocytes but patient is not having any UTI symptoms.No concern for Manav's, torsion, varicocele hydrocele or hernia, STI. Most probably benign causes likely to be epididymal cyst or spermatocele or a tunica albuginea cyst. Will get an ultrasound of the testicles for further evaluation. Will call the patient with results. Educated on ED criteria and to reach out with any new concerns. All questions answered to patients satisfaction. Patient verbalized understanding of diagnosis and treatments explained. To call sooner prior to next visit it any questions/concerns arise. Case discussed with collaborating physician Gita Owens who reviewed the assessment and plan. Chart, medications, labs, vital signs reviewed. Dictation was accomplished with the use of Bil[employer]esk voice recognition software, prone to medical misidentifications and grammatical errors. This is unintentional and the practitioner does try to identify and correct these, but some could still be present. Please do not hesitate to contact practitioner for clarification. 11/09/2024 Peripheral edema (ICD-10 - R60.9) # [...] log exercise and discussed fitness Apps like [employer] which can help keep log off calories [...] Dictation was accomplished with the use of Billdesk voice recognition software, prone to medical misidentifications [...] Dictation was accomplished with the use of [employer] voice recognition software, prone to medical misidentifications [...] Dictation was accomplished with the use of [employer]esk voice recognition software, prone to medical misidentifications [...] log exercise and discussed fitness Apps like [employer] which can help keep log off calories [...] Dictation was accomplished with the use of Bil[employer]esk voice recognition software, prone to medical misidentifications [...] Dictation was accomplished with the use of [employer] voice recognition software, prone to medical misidentifications [...] Test Test Name Order Date Microalb/Creat Ratio, Randm Ur URINE CULTURE 08/04/2025 LIPID PANEL, STANDARD 11/05/2023 LIPID PANEL, STANDARD 04/30/2024 LIPID PANEL, STANDARD 07/13/2025 COMPREHENSIVE METABOLIC PANEL 07/13/2025 COMPREHENSIVE METABOLIC PANEL 04/30/2024 COMPREHENSIVE METABOLIC PANEL 11/05/2023 CBC (INCLUDES DIFF/PLT) 11/05/2023 CBC (INCLUDES DIFF/PLT) 04/30/2024 CBC (INCLUDES DIFF/PLT) 07/13/2025 URINALYSIS, COMPLETE 07/13/2025 URINALYSIS, COMPLETE 11/05/2023 URINALYSIS, COMPLETE 04/30/2024 HEMOGLOBIN A1c 04/30/2024 HEMOGLOBIN A1c 11/19/2022 HEMOGLOBIN A1c 07/13/2025 INSULIN 11/19/2022 VITAMIN B12 07/13/2025 PSA (FREE AND TOTAL) 07/13/2025 PSA, TOTAL 11/05/2023 T4, FREE 04/30/2024 TSH 04/30/2024 TSH 11/05/2023 T3, FREE 04/30/2024 VITAMIN D,25-OH,TOTAL,IA 07/13/2025 US Testicular 08/04/2025 TSH+T3+Free T4+T3 Free 07/13/2025 PPC Urine Dip 08/04/2025 Next Appt Details Provider Name:EMILY TYLER, 11/15/2025 03:15:00 PM, [address], [place], [address], Insurance Providers Payer Name Payer Address Payer Phone Subscriber Number Group Number Insured Name Patient Relationship to Insured Coverage Start Date Coverage End Date [facility] [address] [place] [address] [phone] [id number] John Mancuso Self - patient is the insured 2 Medications Administered Medication Instructions Date of Administration Dosage Notes [facility] B12 INJECTION 12/06/2022 [id number] Medical (General) [...]
--- OUTSIDE RECORDS SUMMARY | 2025-08-04 19:24 | XMS_ITS | Encounter Summary ---
Author Organization [facility] Address [address] [place] [address] Care Team Providers Care Computer Systems Integrator Name Role Phone Abrahan Hastings MD Unavailable [phone] Andrea Owens MD Primary Care Provider [phone] Carlos Eduardo Fulton MD Unavailable [phone] Jose Jolly MD Unavailable [phone] Encounter Details Date Type Department Care Team (Late st Contact Info) Description 03/04/2023 Scanned Document Formerly [facility] [address] [place] [address] Provider, Generic Social History Tobacco [...] on filedocumented in this encounter Care Teams Computer Systems Integrator Relationship Specialty Start Date End Date Andrea Owens MD [address] [place] [address] PCP - General Internal Medicine 02/01/23 Abrahan Hastings MD [address] [place] [id number] Surgery, Orthopedic 02/01/23 Carlos Eduardo Fulton MD [address] [place] [id number] Cardiovascular Disease 03/20/23 Jose Jolly MD [address] [address] Primary Weigh Box Tender Cardiovascular Disease 12/12/23 documented as of this encounter
--- OUTSIDE RECORDS SUMMARY | 2025-08-04 19:24 | XMS_ITS | Clinical Summary ---
Author Organization [facility] [place] [address] Care Team Providers Care Gaming Department Head Name Role Phone Andrea Owens MD Primary Care Provider [phone] Surgical History Surgery Date Site/Laterality Comments SINUS SURGERY PROCEDURE:SINUS SURGERY HAND SURGERY PROCEDURE:HAND SURGERY CARDIAC CATHETERIZATION 03/07/2023 N/A PROCEDURE:CARDIAC CATHETERIZATION;COMMENT:Procedure: LEFT HEART CATHETERIZATION; Surgeon: Ishmael Kent DO; Location: [facility] CARDIAC HEALTH INFORMATION TECH; Service: Cardiology; Laterality: N/A; CARDIAC CATHETERIZATION 03/07/2023 N/A PROCEDURE:CARDIAC CATHETERIZATION;COMMENT:Procedure: CORONARY ANGIOGRAPHY; Surgeon: Ishmael Kent DO; Location: [facility] CARDIAC HEALTH INFORMATION TECH; Service: Cardiology; Laterality: N/A; Medical History Medical History Date Comments Hyperlipidemia DX:Hyperlipidemi a Hypertension DX:Hypertension Diabetes mellitus (CMS/HCC V24, CMS/HCC V28) DX:Diabetes mellitus ([facility]) Social History Tobacco Use Types [...] Done Comments Colorectal Cancer Screening: Colonoscopy 1970 Diabetes: Annual Foot Exam 1980 Diabetes: Annual Retina Eye Exam 1980 DTaP,Tdap,and Td Vaccines (1 - Tdap) 1989 Hepatitis B Vaccines (1 of 3 - 19+ 3-dose series) 1989 Pneumococcal Vaccine: 50+ Years (1 of 1 - PCV) 2020 RSV Immunization Adult Patients (1 - Risk 50-74 years 1-dose series) 2020 Zoster Vaccines (1 of 2) 2020 Cholesterol Screening (Lipid Panel) 09/18/2022 HIV Screening 09/18/2022 Hepatitis C Screening 09/18/2022 Social Influencers of Health Screening 09/18/2022 Diabetes: Annual GFR (Glomerular Filtration Rate) 02/07/2024 02/06/2023, 02/06/2023 Hypertension/CHF/CAD Annual BMP Blood Test 02/07/2024 02/06/2023, 02/06/2023 Depression Screening 10/21/2024 COVID-19 Vaccine (3 - 2024-2 6 season) 2025 10/28/2021, 03/11/2021 Influenza Vaccine (#1) 2025 , 09/11/2021, 02/27/2021 Diabetes: Annual Urine Albumin-Creatinine Ratio (uACR) 08/04/2025 Diabetes: Blood Sugar Contro l Test (HGBA1C) 08/04/2025 02/06/2023 HIB Vaccines Aged Out No longer eligi [...] to complete this topic RSV Immunization Patients Under 20 months Aged Out No longer eligible b ased on patient's age to complete this topic Varicella Vaccines Aged Out No longer eligible based on patient's age to complete this topic Care Teams Gaming Department Head Relationship Specialty Start Date End Date Andrea Owens MD PCP - General 02/19/23
--- OUTSIDE RECORDS SUMMARY | 2025-08-04 19:24 | XMS_ITS | Encounter Summary ---
Author Organization [facility] Address [address] [place] [address] Care Team Providers Care Garnett Feeder Name Role Phone Abrahan Hastings MD Unavailable [phone] Andrea Owens MD Primary Care Provider [phone] Carlos Eduardo Fulton MD Unavailable [phone] Jose Jolly MD Unavailable Encounter Details Date Type Department Care Team (Late st Contact Info) Description 03/01/2023 Scanned Document formerly [facility] [place] [facility] [address] [place] [address] Provider, Generic Social History Tobacco [...] on filedocumented in this encounter Care Teams Garnett Feeder Relationship Specialty Start Date End Date Andrea Owens MD [address] [place] [address] PCP - General Internal Medicine 02/01/23 Abrahan Hastings MD [address] [place] [address] Surgery, Orthopedic 02/01/23 Carlos Eduardo Fulton MD [address] [place] [address] Cardiovascular Disease 03/20/23 Jose Jolly MD 100 [facility] [address] [place] [address] Primary Cloud Automation Tester Cardiovascular Disease 12/12/23 documented as of this encounter
--- OUTSIDE RECORDS SUMMARY | 2025-08-04 19:24 | XMS_ITS | Clinical Summary ---
Author Organization [facility] Address [address] [place] [address] Care Team Providers Care Academic Vice President Name Role Phone Andrea Owens MD Primary Care Provider [phone] Allergies No known active allergies Medications Medication [...] Group Subscriber ID Effective Dates Phone Address [facility] [id number] 2018-Present [address] [facility] [address] [place] [address] HMO Advance Directives For more information, please contact: [phone] Latest Code Status on File Code Status Date Activated Date Inactivated Comments Full Code 03/07/2023 1:16 PM 03/07/2023 11:43 PM This code status was ascertained in the following way: discussion with patient . Care Teams Academic Vice President Relationship Specialty Start Date End Date Andrea Owens MD [address] [place] [address] PCP - General Internal Medicine 02/19/23
--- OUTSIDE RECORDS SUMMARY | 2025-08-04 19:24 | XMS_ITS | Encounter Summary ---
Author Organization [facility] Address [address] [place] [address] Care Team Providers Care Fur Designer Name Role Phone Abrahan Hastings MD Unavailable [phone] Andrea Owens MD Primary Care Provider [phone] Carlos Eduardo Fulton MD Unavailable [phone] Jose Jolly MD Unavailable [phone] Encounter Details Date Type Department Care Team (Late st Contact Info) Description 04/26/2023 Scanned Document [facility] [address] [address] Abrahan Hastings MD [address] [place] [address] [id number] Social History Tobacco Use Types Packs/Day Years [...] on filedocumented in this encounter Care Teams Fur Designer Relationship Specialty Start Date End Date Andrea Owens MD [address] [place] [address] PCP - General Internal Medicine 02/01/23 Abrahan Hastings MD [address] [place] [address] Surgery, Orthopedic 02/01/23 Carlos Eduardo Fulton MD [address] [place] [address] Cardiovascular Disease 03/20/23 Jose Jolly MD [address] [place] [address] Primary Sanitation Associate Cardiovascular Disease 12/12/23 documented as of this encounter
--- OUTSIDE RECORDS SUMMARY | 2025-08-04 19:24 | XMS_ITS | Encounter Summary ---
Author Organization [facility] Address [address] [place] [address] Care Team Providers Care Weigher And Crusher Name Role Phone Abrahan Hastings MD Unavailable [phone] Andrea Owens MD Primary Care Provider Carlos Eduardo Fulton MD Unavailable [phone] Jose Jolly MD Unavailable [phone] Encounter Details Date Type Department Care Team (Late st Contact Info) Description 02/28/2023 Scanned Document [facility] [place] [facility] [address] [place] [address] Cardiology, Scan Social History Tobacco [...] on filedocumented in this encounter Care Teams Weigher And Crusher Relationship Specialty Start Date End Date Andrea Owens MD [address] [place] [address] PCP - General Internal Medicine 02/01/23 Abrahan Hastings MD [address] [place] [address] [address] [place] [address] Surgery, Orthopedic 02/01/23 Carlos Eduardo Fulton MD [address] [place] [address] Cardiovascular Disease 03/20/23 Jose Jolly MD [address] [place] [address] [place] [address] Primary Dye Tub Operator Cardiovascular Disease 12/12/23 documented as of this encounter
--- OUTSIDE RECORDS SUMMARY | 2025-08-04 19:24 | XMS_ITS | Clinical Summary ---
Author Organization [facility] Address [address] [place] [address] Care Team Providers Care Recovery Room Nurse Name Role Phone Abrahan Hastings MD Unavailable [phone] Andrea Owens MD Primary Care Provider [phone] Carlos Eduardo Fulton MD Unavailable [phone] Jose Jolly MD Unavailable [phone] Allergies No known active allergies Medications dulaglutide [...] Blood Gluc Sensor (FreeStyle Gilda 2 Sensor) [facility] See Admin Instructions. 3 Active Continuous Blood Gluc Sensor (FreeStyle Gilda 2 Sensor) [facility] USE DIRECTED EVERY 2 WEEKS 3 Active [...] of 2 - PCV) 1989 Colonoscopy 2015 RSV Vaccine 50 years and old er and Patients (1 - Risk 50-74 years 1-dose series) 2020 Zoster (Shingles) Vaccine (1 of 2) 2020 Hemoglobin A1C 08/08/2023 02/06/2023 Creatinine with GFR 02/07/2024 02/06/2023 Influenza Vaccine 05/21/2025 09/11/2021 COVID-19 Vaccine (2 - season) 2025 Medical Devices Implanted Type Area Quarry Equipment Operator Device Identifier Shelf Expiration Date Model / Serial / Lot [id number] Oval 38mm Porous Patella Implanted:Qty: 1 on 04/26/2023 by Abrahan Hastings MD at [facility] Left: Knee 08/27/2029 / / [id number] Tibial Baseplate 7 Left Implanted:Qty: 1 on 04/26/2023 by Abrahan Hastings MD at [facility] Left: Knee 02/20/2032 / [id number] Femur Cr 6 Left Implanted:Qty: 1 on 04/26/2023 by Abrahan Hastings MD at [facility] Left: Knee 07/18/2031 / [id number] Legion 11mm Hf Insert Implanted:Qty: 1 on 04/26/2023 by Abrahan Hastings MD at [facility] Left: Knee 01/13/2032 / / [id number] Procedures Procedure Name Priority Date/Time Associated Diagnosis Comments HEMOGLOBIN A1C WITH ESTIMATED AVERAGE GLUCOSE Routine 02/06/2023 2:09 PM EDT Arthritis of left knee Preop examination Primary hypertension Mixed hyperlipidemia Morbid obesity with BMI of 45.0-49.9, adult ([facility]) BASIC METABOLIC PANEL Routine 02/06/2023 2:09 PM EDT Arthritis of left knee Preop examination Primary hypertension Mixed hyperlipidemia Morbid obesity with BMI of 45.0-49.9, adult ([facility]) from Last 3 Months or Most Recently Relevant to Health Maintenance Results * (ABNORMAL) Hemoglobin A1c with Estimated Average Glucose (02/06/2023 2:09 PM EDT) Hemoglobin A1C 6.1(H) <5.7 % 02/06/2023 8:55 PM EDT [facility] Comment: A1c% Interpretation 5.7 - 6.0 Increase risk of diabetes 6.1 - 6.4 Higher risk of diabetes > or = 6.5 Consistent with diabetes Diabetes Care, 33(Supp 1):S1-S61, 2009 Estimated Average Glucose 128 mg/dL 02/06/2023 8:55 PM EDT [facility] Blood specimen (specimen) Blood specimen / Unknown 02/06/2023 2:09 PM EDT 02/06/2023 8:26 PM EDT [facility] BLOOD ORDERABLES Fi nal Result HOSPITAL LAB See Below [address] [address] * (ABNORMAL) Basic Metabolic Panel (02/06/2023 2:09 PM EDT) Glucose 116(H) 65 - 99 mg/dL 02/06/2023 8:59 PM EDT [facility] Comment:Fasting: <100 mg/dL, Non-Fasting: <200 mg/dL (ADA 2004) Blood Urea Nitrogen (BUN) 12 8 - 21 mg/dL 02/06/2023 8:59 PM EDT [facility] Creatinine 1.0 0.5 - 1.3 mg/dL 02/06/2023 8:59 PM EDT [facility] eGFR >90 >59 02/06/2023 8:59 PM T [facility] Comment: CKD-EPI (2020) in mL/min/1.73 sq meters. Reported eGFR is based on the CKD-EPI equation that does not use a race coefficient as of 12/25/2022 Sodium 140 136 - 145 mmol/L 02/06/2023 8:59 PM EDT [facility] Potassium 3.9 3.4 - 5.3 mmol/L 02/06/2023 8:59 PM T [facility] Chloride 105 98 - 107 mmol/L 02/06/2023 8:59 PM T [facility] CO2 29 22 - 33 mmol/L 02/06/2023 8:59 PM EDT [facility] Anion Gap 6(L) 7 - 17 02/06/2023 8:59 PM EDT [facility] Calcium 8.7 8.7 - 10.5 mg/dL 02/06/2023 8:59 PM T [facility] BUN/Creatinine Ratio 12 10.0 - 25.0 Ratio 02/06/2023 8:59 PM T [facility] Blood specimen (specimen) (Plasma/Serum) 02/06/2023 2:09 PM EDT 02/06/2023 8:26 PM EDT [facility] BLOOD ORDERABLES Fi nal Result HOSPITAL LAB See Below [address] [address] from Last 3 Months or Most Recently Relevant to Health Maintenance Insurance [facility] Advance Directives * Full Code (Latest Code Status on File) Date Activated Date Inactivated Comments 04/26/2023 3:48 PM * Full Code Date Activated Date Inactivated Comments 04/26/2023 8:41 AM 04/26/2023 3:48 PM Care Teams Recovery Room Nurse Relationship Specialty Start Date End Date Andrea Owens MD [address] [place] [address] PCP - General Internal Medicine 02/01/23 Abrahan Hastings MD [address] [place] [address] Surgery, Orthopedic 02/01/23 Carlos Eduardo Fulton MD [address] [place] [address]266 Cardiovascular Disease 03/20/23 Jose Jolly MD [address] [place], [place] [address] [place] [address] Primary Crime Scene Photographer Cardiovascular Disease 12/12/23
--- OUTSIDE RECORDS SUMMARY | 2025-08-04 19:24 | XMS_ITS | Encounter Summary ---
Author Organization [facility] Address [address] [place] [address] Care Team Providers Care Refueling Ramp Supervisor Name Role Phone Abrahan Hastings MD Unavailable [phone] Andrea Owens MD Primary Care Provider [phone] Carlos Eduardo Fulton MD Unavailable Jose Jolly MD Unavailable [phone] Reason for Visit * Reason Comments Medication Refill Encounter Details Date Type Department Care Team (Late st Contact Info) Description 08/14/2023 Refill [facility] [address] [address] Abrahan Hastings MD [address] [place] [address] [id number] Status post total left knee replacement Social [...] replacement documented in this encounter Care Teams Refueling Ramp Supervisor Relationship Specialty Start Date End Date Andrea Owens MD 299 [place] [address] PCP - General Internal Medicine 02/01/23 Abrahan Hastings MD [address] [place] [address] [address] [place] [address] Surgery, Orthopedic 02/01/23 Carlos Eduardo Fulton MD [address] [place] [address] Cardiovascular Disease 03/20/23 Jose Jolly MD 100 [facility] [address] [place] [address] Primary Branch Banker Cardiovascular Disease 12/12/23 documented as of this encounter
--- OUTSIDE RECORDS SUMMARY | 2025-08-04 19:24 | XMS_ITS | Encounter Summary ---
Author Organization [facility] Address [address] [place] [address] Care Team Providers Care Baker Biscuit Name Role Phone Abrahan Hastings MD Unavailable [phone] Andrea Owens MD Primary Care Provider [phone] Carlos Eduardo Fulton MD Unavailable [phone] Jose Jolly MD Unavailable Encounter Details Date Type Department Care Team (Late st Contact Info) Description 03/04/2023 Scanned Document [facility] [place] [facility] [address] [place] [address] Provider, Generic Social History Tobacco [...] on filedocumented in this encounter Care Teams Baker Biscuit Relationship Specialty Start Date End Date Andrea Owens MD 299 [place] [address] PCP - General Internal Medicine 02/01/23 Abrahan Hastings MD [address] [place] [address] Surgery, Orthopedic 02/01/23 Carlos Eduardo Fulton MD [address] [place] [address] Cardiovascular Disease 03/20/23 Jose Jolly MD [address] [address] Primary Dry Wall Finisher Cardiovascular Disease 12/12/23 documented as of this encounter
--- OUTSIDE RECORDS SUMMARY | 2025-08-04 19:24 | XMS_ITS | Encounter Summary ---
Author Organization [facility] Address [address] [place] [address] Care Team Providers Care Curling Machine Operator Name Role Phone Abrahan Hastings MD Unavailable Andrea Owens MD Primary Care Provider [phone] Carlos Eduardo Fulton MD Unavailable [phone] Jose Jolly MD Unavailable Encounter Details Date Type Department Care Team (Late st Contact Info) Description 03/01/2023 Scanned Document [facility] [place] [facility] [address] [place] [address] Cardiology, Scan Social History Tobacco [...] on filedocumented in this encounter Care Teams Curling Machine Operator Relationship Specialty Start Date End Date Andrea Owens MD [address] [place] [address] PCP - General Internal Medicine 02/01/23 Abrahan Hastings MD [address] [place] [address] [address] [place] [address] Surgery, Orthopedic 02/01/23 Carlos Eduardo Fulton MD [address] [place] [address] Cardiovascular Disease 03/20/23 Jose Jolly MD [address] [place] [address] [place] [address] Primary Tube Coverer Cardiovascular Disease 12/12/23 documented as of this encounter
--- OUTSIDE RECORDS SUMMARY | 2025-08-04 19:25 | XMS_ITS | Patient Health Record ---
Author [facility] Address [address] [place] [address] Care Team Providers Care Heel Gummer Name Role Phone Owens, Andrea Primary Care Provider Romana Valles Unavailable [phone] Allergies No Known Allergies Results Component Value [...] toe of lesser toe of right foot (0867655720421868 8) Other hammer toe(s) (acquired), right foot (M20.41) Active confirmed Problem Acquired hammer toe of lesser toe of left foot (1499057920034377 3) Other hammer toe(s) (acquired), left foot (M20.42) Active confirmed Problem Polyneuropathy due to type 2 diabetes mellitus (729548328) Type 2 diabetes mellitus with diabetic polyneuropathy (E11.42) Active confirmed Vital Signs Blood pressure diastolic 70 mm Hg 05/13/2025 Height 6ft in 05/13/2025 Blood pressure systolic 140 mm Hg 05/13/2025 Weight 315 lbs 05/13/2025 BMI 42.72 kg/m2 05/13/2025 Encounters Encounter Location Date Provider Diagnosis [facility] [address] [place] [address] 12/14/2024 Romana Leyva Onychomycosis B35.1 ; Type 2 diabetes mellitus with diabetic polyneuropathy E11.42 ; Tinea pedis of both feet B35.3 ; Other hammer toe(s) (acquired), right foot M20.41 and Other hammer toe(s) (acquired), left foot M20.42 [facility] [address] [place] [address] 05/13/2025 Romana Leyva Onychomycosis B35.1 ; Type 2 diabetes mellitus with diabetic polyneuropathy E11.42 and Tinea pedis of both feet B35.3 [facility] [address] [address] 11/26/2024 Romana Perica [facility] [address] 12/22/2024 [facility] [address] [place] [address] 02/19/2025 Romana Perica [facility] [address] [place] [address] 04/20/2025 Romana Perica [address] [address] 05/13/2025 Romana Leyva Assessments Encounter Date Diagnosis [...] (LFT) 12/14/2024 *Liver Function Test (LFT) 05/13/2025 23878-Ywslwyei Plate 09/02/2018 66316-UYZ 04/30/2014 75944- Debride <25 sq cm 06/15/2014 96546- Debride <25 sq cm 10/30/2013 31770-WLOSFDW SKIN/TISSUE 05/19/2014 33085 I&D ABSCESS- SIMPLE,SINGLE 015 30731 I&D ABSCESS- SIMPLE,SINGLE 014 15372 I&D ABSCESS- SIMPLE,SINGLE 013 02395-NXJZ SKIN LESIONS, OVER 4 05/29/20 24 23583- Nail Unit Biopsy 09/02/2018 Insurance Providers Payer Name Payer Address Payer Phone Subscriber Number Group Number Insured Name Patient Relationship to Insured Coverage Start Date Coverage End Date [facility] [address] [place] [address] [id number] Mancuso Self - patient is the insured Medical (General) History Medical History History ICD Code Anemia Back,Hip,and Knee pain covid-19 Diabetic high blood pressure Surgical History Surgery Date(Month/Year) left wrist surgery nasal surgery knee surgery 04/12
--- OUTSIDE RECORDS SUMMARY | 2025-08-04 19:25 | XMS_ITS | Encounter Summary ---
Author Organization [facility] Address [address] [place] [address] Care Team Providers Care Print Shop Helper Name Role Phone Abrahan Hastings MD Unavailable [phone] Andrea Owens MD Primary Care Provider [phone] Carlos Eduardo Fulton MD Unavailable Jose Jolly MD Unavailable [phone] Encounter Details Date Type Department Care Team ([facility] st Contact Info) Description 04/19/2023 Scanned Document [facility] [address] [phone] Abrahan Hastings MD [address] [place] [address] [phone] Social History Tobacco Use Types Packs/Day Years [...] on filedocumented in this encounter Care Teams Print Shop Helper Relationship Specialty Start Date End Date Andrea Owens MD [address] [place] [address] PCP - General Internal Medicine 02/01/23 Abrahan Hastings MD [address] [place] [address] Surgery, Orthopedic 02/01/23 Carlos Eduardo Fulton MD [address] [place] [address] Cardiovascular Disease 03/20/23 Jose Jolly MD [address] [place] [address] Primary Production Team Leader Cardiovascular Disease 12/12/23 documented as of this encounter
--- OUTSIDE RECORDS SUMMARY | 2025-08-04 19:25 | XMS_ITS | Encounter Summary ---
Author Organization [facility] Address [address] [place] [address] Care Team Providers Care Joist Setter Name Role Phone Abrahan Hastings MD Unavailable Andrea Owens MD Primary Care Provider [phone] Carlos Eduardo Fulton MD Unavailable Jose Jolly MD Unavailable [phone] Encounter Details Date Type Department Care Team (Late st Contact Info) Description 03/04/2023 Erroneous Encounter [facility] CONVERSION DEPT [address] [facility] [place] [address] Hiram Paz MD [address] [place] [address] Social History Tobacco Use Types [...] on filedocumented in this encounter Care Teams Joist Setter Relationship Specialty Start Date End Date Andrea Owens MD [address] [place] [address] PCP - General Internal Medicine 02/01/23 Abrahan Hastings MD [address] [place] [address] Surgery, Orthopedic 02/01/23 Carlos Eduardo Fulton MD [address] [place] [address] Cardiovascular Disease 03/20/23 Jose Jolly MD [address] [place] [address] Primary Derivatives Trader Cardiovascular Disease 12/12/23 documented as of this encounter
--- OUTSIDE RECORDS SUMMARY | 2025-08-04 19:25 | XMS_ITS | Encounter Summary ---
Author Organization [facility] Address [address] [place] [address] Care Team Providers Care Band Master Name Role Phone Abrahan Hastings MD Unavailable [phone] Andrea Owens MD Primary Care Provider [phone] Carlos Eduardo Fulton MD Unavailable [phone] Jose Jolly MD Unavailable [phone] Encounter Details Date Type Department Care Team (Late st Contact Info) Description 03/04/2023 Scanned Document [facility] [place] [facility] [address] [place] [address] Provider, Generic Social History Tobacco [...] on filedocumented in this encounter Care Teams Band Master Relationship Specialty Start Date End Date Andrea Owens MD 299 [place] [address] PCP - General Internal Medicine 02/01/23 Abrahan Hastings MD [address] [place] [address] Surgery, Orthopedic 02/01/23 Carlos Eduardo Fulton MD [address] [place] [address] Cardiovascular Disease 03/20/23 Jose Jolly MD [address] [address] Primary House Director Cardiovascular Disease 12/12/23 documented as of this encounter
== END 2025-08-04 16:19 | disposition home or self-care (01) ==
LOC: HO.HMGAL 16:18
PROVIDERS: PCP Internal Medicine; Visit Provider Registered Nurse Emergency
DX: J30.89 Other allergic rhinitis (principal)
CPT/HCPCS: 95117; 95165

== ENCOUNTER 2025-08-18 16:18 | Outpatient (AMB) | payer OTHER, SELFPAY ==
--- OUTSIDE RECORDS SUMMARY | 2025-08-18 20:12 | XMS_ITS | Clinical Summary ---
Author Organization [facility] Address [address] [place] [address] Care Team Providers Care Parachute Supervisor Name Role Phone Abrahan Hastings MD Unavailable [phone] Andrea Owens MD Primary Care Provider [phone] Carlos Eduardo Fulton MD Unavailable [phone] Jose Jolly MD Unavailable [phone] Allergies No known active allergies Medications dulaglutide [...] Blood Gluc Sensor (FreeStyle Gilda 2 Sensor) [facility] See Admin Instructions. 3 Active Continuous Blood Gluc Sensor (FreeStyle Gilda 2 Sensor) [facility] USE DIRECTED EVERY 2 WEEKS 3 Active [...] season) 2025 Medical Devices Implanted Type Area Poultry Processor Device Identifier Shelf Expiration Date Model / Serial / Lot [id number] Oval 38mm Porous Patella Implanted:Qty: 1 on 04/26/2023 by Abrahan Hastings MD at [facility] Left: Knee 08/27/2029 / / [id number] Tibial Baseplate 7 Left Implanted:Qty: 1 on 04/26/2023 by Abrahan Hastings MD at [facility] Left: Knee 02/20/2032 / [id number] Femur Cr 6 Left Implanted:Qty: 1 on 04/26/2023 by Abrahan Hastings MD at [facility] Left: Knee 07/18/2031 / [id number] 11mm Hf Insert Implanted:Qty: 1 on 04/26/2023 by Abrahan Hastings MD at [facility] Left: Knee 01/13/2032 / / [id number] Procedures Procedure Name Priority Date/Time Associated Diagnosis Comments HEMOGLOBIN A1C WITH ESTIMATED AVERAGE GLUCOSE Routine 02/06/2023 2:09 PM EDT Arthritis of left knee Preop examination Primary hypertension Mixed hyperlipidemia Morbid obesity with BMI of 45.0-49.9, adult ([facility]) BASIC METABOLIC PANEL Routine 02/06/2023 2:09 PM EDT Arthritis of left knee Preop examination Primary hypertension Mixed hyperlipidemia Morbid obesity with BMI of 45.0-49.9, adult ([facility]) from Last 3 Months or Most Recently Relevant to Health Maintenance Results * (ABNORMAL) Hemoglobin A1c with Estimated Average Glucose (02/06/2023 2:09 PM EDT) Hemoglobin A1C 6.1(H) <5.7 % 02/06/2023 8:55 PM EDT [facility] Comment: A1c% Interpretation 5.7 - 6.0 Increase risk of diabetes 6.1 - 6.4 Higher risk of diabetes > or = 6.5 Consistent with diabetes Diabetes Care, 33(Supp 1):S1-S61, 2009 Estimated Average Glucose 128 mg/dL 02/06/2023 8:55 PM EDT [facility] Blood specimen (specimen) Blood specimen / Unknown 02/06/2023 2:09 PM EDT 02/06/2023 8:26 PM EDT [facility] MENTAL HEALTH NURSE PRACTITIONER LAB BLOOD ORDERABLES Fi nal Result HOSPITAL LAB See Below [address] [address] * (ABNORMAL) Basic Metabolic Panel (02/06/2023 2:09 PM EDT) Glucose 116(H) 65 - 99 mg/dL 02/06/2023 8:59 PM EDT [facility] Comment:Fasting: <100 mg/dL, Non-Fasting: <200 mg/dL (ADA 2004) Blood Urea Nitrogen (BUN) 12 8 - 21 mg/dL 02/06/2023 8:59 PM EDT [facility] Creatinine 1.0 0.5 - 1.3 mg/dL 02/06/2023 8:59 PM EDT [facility] eGFR >90 >59 02/06/2023 8:59 PM T [facility] Comment: CKD-EPI (2020) in mL/min/1.73 sq meters. Reported eGFR is based on the CKD-EPI equation that does not use a race coefficient as of 12/25/2022 Sodium 140 136 - 145 mmol/L 02/06/2023 8:59 PM EDT [facility] Potassium 3.9 3.4 - 5.3 mmol/L 02/06/2023 8:59 PM T [facility] Chloride 105 98 - 107 mmol/L 02/06/2023 8:59 PM T [facility] CO2 29 22 - 33 mmol/L 02/06/2023 8:59 PM EDT [facility] Anion Gap 6(L) 7 - 17 02/06/2023 8:59 PM EDT [facility] Calcium 8.7 8.7 - 10.5 mg/dL 02/06/2023 8:59 PM T [facility] BUN/Creatinine Ratio 12 10.0 - 25.0 Ratio 02/06/2023 8:59 PM T [facility] Blood specimen (specimen) (Plasma/Serum) 02/06/2023 2:09 PM EDT 02/06/2023 8:26 PM EDT [facility] MENTAL HEALTH NURSE PRACTITIONER LAB BLOOD ORDERABLES Fi nal Result HOSPITAL LAB See Below [address] [address] from Last 3 Months or Most Recently Relevant to Health Maintenance Insurance [facility] Advance Directives * Full Code (Latest Code Status on File) Date Activated Date Inactivated Comments 04/26/2023 3:48 PM * Full Code Date Activated Date Inactivated Comments 04/26/2023 8:41 AM 04/26/2023 3:48 PM Care Teams Parachute Supervisor Relationship Specialty Start Date End Date Andrea Owens MD [address] [place] [address] PCP - General Internal Medicine 02/01/23 Abrahan Hastings MD [address] [place] [address] Surgery, Orthopedic 02/01/23 Carlos Eduardo Fulton MD [address] [place] [address] Cardiovascular Disease 03/20/23 Jose Jolly MD [address] [place], [place] [address] [place] [address] Primary Development Educator Cardiovascular Disease 12/12/23
--- OUTSIDE RECORDS SUMMARY | 2025-08-18 20:12 | XMS_ITS | Encounter Summary ---
Author Organization [facility] Address [address] [place] [address] Care Team Providers Care Maintenance Mechanic 2Nd Shift Name Role Phone Abrahan Hastings MD Unavailable [phone] Andrea Owens MD Primary Care Provider [phone] Carlos Eduardo Fulton MD Unavailable [phone] Jose Jolly MD Unavailable [phone] Encounter Details Date Type Department Care Team ([facility] st Contact Info) Description 04/19/2023 Scanned Document [facility] [address] [phone] Abrahan Hastings MD [address] [place] [address] [phone] Social History Tobacco Use Types Packs/Day Years [...] on filedocumented in this encounter Care Teams Maintenance Mechanic 2Nd Shift Relationship Specialty Start Date End Date Andrea Owens MD [address] [place] [address] PCP - General Internal Medicine 02/01/23 Abrahan Hastings MD [address] [place] [address] Surgery, Orthopedic 02/01/23 Carlos Eduardo Fulton MD [address] [place] [address] Cardiovascular Disease 03/20/23 Jose Jolly MD [address] [place] [address] Primary Handyman Cardiovascular Disease 12/12/23 documented as of this encounter
--- OUTSIDE RECORDS SUMMARY | 2025-08-18 20:12 | XMS_ITS | Encounter Summary ---
Author Organization [facility] Address [address] [place] [address] Care Team Providers Care Foreign Service Officer Name Role Phone Abrahan Hastings MD Unavailable [phone] Andrea Owens MD Primary Care Provider [phone] Carlos Eduardo Fulton MD Unavailable [phone] Jose Jolly MD Unavailable [phone] Encounter Details Date Type Department Care Team (Late st Contact Info) Description 02/28/2023 Scanned Document [facility] [place] [facility] [address] [place] [address] Cardiology, Scan Social History Tobacco [...] on filedocumented in this encounter Care Teams Foreign Service Officer Relationship Specialty Start Date End Date Andrea Owens MD [address] [place] [address] PCP - General Internal Medicine 02/01/23 Abrahan Hastings MD [address] [place] [address] [address] [place] [address] Surgery, Orthopedic 02/01/23 Carlos Eduardo Fulton MD [address] [place] [address] Cardiovascular Disease 03/20/23 Jose Jolly MD [address] [place] [address] [place] [address] Primary Ticket Agent Cardiovascular Disease 12/12/23 documented as of this encounter
--- OUTSIDE RECORDS SUMMARY | 2025-08-18 20:12 | XMS_ITS | Clinical Summary ---
Author Organization [facility] Address [address] [place] [address] Phone Care Team Providers Care Mines Inspector Name Role Phone Andrea Owens MD Primary Care Provider [phone] Encounters Date Type Department Care Team Description 08/09/2025 1:31 PM EDT - 08/09/2025 11:59 PM EDT Hospital Encounter [facility] Ultrasound [address] [place] [phone] Mass of left testicle Discharge Disposition: Home or Self Care from Last 3 Months Surgical History Surgery Date Site/Laterality Comments SINUS SURGERY PROCEDURE:SINUS SURGERY HAND SURGERY PROCEDURE:HAND SURGERY CARDIAC CATHETERIZATION 03/07/2023 N/A PROCEDURE:CARDIAC CATHETERIZATION;COMMENT:Procedure: LEFT HEART CATHETERIZATION; Surgeon: Ishmael Kent DO; Location: [facility] CARDIAC LOFT WORKER HEAD; Service: Cardiology; Laterality: N/A; CARDIAC CATHETERIZATION 03/07/2023 N/A PROCEDURE:CARDIAC CATHETERIZATION;COMMENT:Procedure: CORONARY ANGIOGRAPHY; Surgeon: Ishmael Kent DO; Location: [facility] CARDIAC LOFT WORKER HEAD; Service: Cardiology; Laterality: N/A; Medical History Medical History Date Comments Hyperlipidemia DX:Hyperlipidemi a Hypertension DX:Hypertension Diabetes mellitus (CMS/HCC V24, CMS/HCC V28) DX:Diabetes mellitus (HCC) Social History Tobacco Use Types Packs/Day Years Used Date Smoking Tobacco: Never Smokeless Tobacco: Never Alcohol Use Standard Drinks/Week Comments Not Currently 0 (1 standard drink = 0.6 oz pur e alcohol) Sex and Gender Information Value Date Recorded Sex Assigned at Male 08/06/2025 4:19 PM EDT Legal Sex Male 11:03 AM EST Gender [...] on patient's age to complete this topic Procedures Procedure Name Priority Date/Time Associated Diagnosis Comments US SCROTUM AND CONTENTS Routine 08/09/2025 2:07 PM EDT Mass of left testicle from Last 3 Months Results * US Scrotum and Contents (08/09/2025 2:07 PM EDT) Anatomical Region Laterality Modality Body Ultrasound 08/17/2025 2:07 PM EDT Impressions 08/17/2025 2:30 PM EDT 16 mm left epididymal head nodule. Finding is nonspecific and may represent benign/malignant neoplasm versus inflammatory mass. Urological consultation recommended. -------- FINAL REPORT -------- Dictated By: Kris Burt Dictated Date: 08/17/2025 14:07 ET Assigned Physician: Kris Burt Reviewed and Electronically Signed By: Kris Burt Signed Date: 08/17/2025 14:30 ET Workstation ID: [id number] Transcribed By: Self Edit Transcribed Date: 08/17/2025 14:07 ET Narrative 08/17/2025 2:30 PM EDT INDICATION: Left-sided testicular mass. FINDINGS: Scrotal ultrasound obtained. No prior studies available for comparison. Right testicle is normal in size, shape and echogenicity. Epididymis is hypoechoic with a speckled appearance suggestive of tubular ectasia which can occur after vasectomy. There is normal vascularity. Left testicle is normal in size, shape and echogenicity. There is normal vascularity. On the left side there is a 16 mm solid nodule within the epididymal head which demonstrates vascularity and calcifications. There is no evidence of varicocele or hydrocele. Procedure Note Kris Burt MD - 08/17/2025 INDICATION: Left-sided testicular mass. FINDINGS: Scrotal ultrasound obtained. No prior studies available forcomparison. Right testicle is normal in size, shape and echogenicity. Epididymis ishypoechoic with a speckled appearance suggestive of tubular ectasia whichcan occur after vasectomy. There is normal vascularity. Left testicle is normal in size, shape and echogenicity. There is normalvascularity. On the left side there is a 16 mm solid nodule within theepididymal head which demonstrates vascularity and calcifications. There is no evidence of varicocele or hydrocele. IMPRESSION: 16 mm left epididymal head nodule. Finding is nonspecific and mayrepresent benign/malignant neoplasm versus inflammatory mass. Urologicalconsultation recommended. -------- FINAL REPORT -------- Dictated By: Kris Burt Dictated Date: 08/17/2025 14:07 ET Assigned Physician: Kris Burt Reviewed and Electronically Signed By: Kris Burt Signed Date: 08/17/2025 14:30 ET Workstation ID: [id number] Transcribed By: Self Edit Transcribed Date: 08/17/2025 14:07 ET Abhijeet ANSARI IM US PROCEDURES Final Result from Last 3 Months Insurance [facility] [address] [place] [address] Care Teams Mines Inspector Relationship Specialty Start Date End Date Andrea Owens MD [address] [place] [address] PCP - General 02/19/23
--- OUTSIDE RECORDS SUMMARY | 2025-08-18 20:12 | XMS_ITS | Encounter Summary ---
Author Organization [facility] Address [address] [place] [address] Care Team Providers Care Edge Burnisher Uppers Name Role Phone Abrahan Hastings MD Unavailable [phone] Andrea Owens MD Primary Care Provider [phone] Carlos Eduardo Fulton MD Unavailable [phone] Jose Jolly MD Unavailable [phone] Encounter Details Date Type Department Care Team (Late st Contact Info) Description 03/01/2023 Scanned Document [facility] [place] at [facility] [address] [place] [address] Provider, Generic Social History Tobacco [...] on filedocumented in this encounter Care Teams Edge Burnisher Uppers Relationship Specialty Start Date End Date Andrea Owens MD [address] [place] [address] PCP - General Internal Medicine 02/01/23 Abrahan Hastings MD [address] [place] [address] Surgery, Orthopedic 02/01/23 Carlos Eduardo Fulton MD [address] [place] [address] Cardiovascular Disease 03/20/23 Jose Jolly MD 100 [facility] [address] [place] [address] Primary Plastic Fabricator Cardiovascular Disease 12/12/23 documented as of this encounter
--- OUTSIDE RECORDS SUMMARY | 2025-08-18 20:12 | XMS_ITS | Encounter Summary ---
Author Organization [facility] Address [address] [place] [address] Care Team Providers Care Medical Corps Officer Name Role Phone Abrahan Hastings MD Unavailable [phone] Andrea Owens MD Primary Care Provider [phone] Carlos Eduardo Fulton MD Unavailable [phone] Jose Jolly MD Unavailable [phone] Encounter Details Date Type Department Care Team (Late st Contact Info) Description 03/04/2023 Scanned Document [facility] [place] [facility] [address] [place] [address] Provider, Generic Social History Tobacco [...] on filedocumented in this encounter Care Teams Medical Corps Officer Relationship Specialty Start Date End Date Andrea Owens MD [address] [place] [address] PCP - General Internal Medicine 02/01/23 Abrahan Hastings MD [address] [place] [address] Surgery, Orthopedic 02/01/23 Carlos Eduardo Fulton MD [address] [place] [address] Cardiovascular Disease 03/20/23 Jose Jolly MD [address] [address] Primary Medical Parasitologist Cardiovascular Disease 12/12/23 documented as of this encounter
--- OUTSIDE RECORDS SUMMARY | 2025-08-18 20:12 | XMS_ITS | Encounter Summary ---
Author Organization [facility] Address [address] [place] [address] Care Team Providers Care Veterinary Virologist Name Role Phone Abrahan Hastings MD Unavailable [phone] Andrea Owens MD Primary Care Provider [phone] Carlos Eduardo Fulton MD Unavailable [phone] Jose Jolly MD Unavailable [phone] Encounter Details Date Type Department Care Team (Late st Contact Info) Description 04/26/2023 Scanned Document [facility] [address] [phone] Abrahan Hastings MD [address] [place] [address] [phone] Social History Tobacco Use Types Packs/Day Years [...] on filedocumented in this encounter Care Teams Veterinary Virologist Relationship Specialty Start Date End Date Andrea Owens MD [address] [place] [address] PCP - General Internal Medicine 02/01/23 Abrahan Hastings MD [address] [place] [address] Surgery, Orthopedic 02/01/23 Carlos Eduardo Fulton MD [address] [place] [address] Cardiovascular Disease 03/20/23 Jose Jolly MD [address] [place] [address] Primary Quarrying Specialist Cardiovascular Disease 12/12/23 documented as of this encounter
--- OUTSIDE RECORDS SUMMARY | 2025-08-18 20:12 | XMS_ITS | Encounter Summary ---
Author Organization [facility] Address [address] [place] [address] Care Team Providers Care Engineering Vice President Name Role Phone Abrahan Hastings MD Unavailable [phone] Andrea Owens MD Primary Care Provider [phone] Carlos Eduardo Fulton MD Unavailable [phone] Jose Jolly MD Unavailable [phone] Encounter Details Date Type Department Care Team (Late st Contact Info) Description 03/04/2023 Scanned Document [facility] [place] at [facility] [address] [place] [address] Provider, Generic Social History Tobacco [...] filedocumented in this encounter Care Teams Engineering Vice President Relationship Specialty Start Date End Date Andrea Owens MD [address] [place] [address] PCP - General Internal Medicine 02/01/23 Abrahan Hastings MD [address] [place] [address] Surgery, Orthopedic 02/01/23 Carlos Eduardo Fulton MD [address] [place] [address] Cardiovascular Disease 03/20/23 Jose Jolly MD [address] [address] Primary Cleaner And Presser Cardiovascular Disease 12/12/23 documented as of this encounter
--- OUTSIDE RECORDS SUMMARY | 2025-08-18 20:12 | XMS_ITS | Encounter Summary ---
Author Organization [facility] Address [address] [place] [address] Care Team Providers Care Gold Reclaimer Name Role Phone Abrahan Hastings MD Unavailable [phone] Andrea Owens MD Primary Care Provider [phone] Carlos Eduardo Fulton MD Unavailable [phone] Jose Jolly MD Unavailable Encounter Details Date Type Department Care Team (Late st Contact Info) Description 03/01/2023 Scanned Document [facility] Bone & Joint [place] [facility] [address] [place] [address] Cardiology, Scan Social History Tobacco [...] on filedocumented in this encounter Care Teams Gold Reclaimer Relationship Specialty Start Date End Date Andrea Owens MD [address] [place] [address] PCP - General Internal Medicine 02/01/23 Abrahan Hastings MD [address] [place] [address] 100 [place] [address] Surgery, Orthopedic 02/01/23 Carlos Eduardo Fulton MD [address] [place] [address] Cardiovascular Disease 03/20/23 Jose Jolly MD [address] [place] [address] [place] [address] Primary Schedule Maker Cardiovascular Disease 12/12/23 documented as of this encounter
--- OUTSIDE RECORDS SUMMARY | 2025-08-18 20:12 | XMS_ITS | Clinical Summary ---
Author Organization [facility] Address [address] [place] [address] Care Team Providers Care Lead Php Developer Name Role Phone Andrea Owens MD Primary Care Provider [phone] Allergies No known active allergies Medications Medication [...] Group Subscriber ID Effective Dates Phone Address [facility] [id number] 2018-Present 1 [facility] [address] [place] [address] HMO Advance Directives For more information, please contact: [phone] Latest Code Status on File Code Status Date Activated Date Inactivated Comments Full Code 03/07/2023 1:16 PM 03/07/2023 11:43 PM This code status was ascertained in the following way: discussion with patient . Care Teams Lead Php Developer Relationship Specialty Start Date End Date Andrea Owens MD [address] [place] [address] PCP - General Internal Medicine 02/19/23
--- OUTSIDE RECORDS SUMMARY | 2025-08-18 20:12 | XMS_ITS | Encounter Summary ---
Author Organization [facility] Address [address] [place] [address] Care Team Providers Care Wire Mesh Knitter Name Role Phone Abrahan Hastings MD Unavailable [phone] Andrea Owens MD Primary Care Provider Carlos Eduardo Fulton MD Unavailable [phone] Jose Jolly MD Unavailable [phone] Reason for Visit * Reason Comments Medication Refill Encounter Details Date Type Department Care Team (Late st Contact Info) Description 08/14/2023 Refill [facility] [address] [address] Abrahan Hastings MD [address] [place] [address] [phone] Status post total left knee replacement Social [...] replacement documented in this encounter Care Teams Wire Mesh Knitter Relationship Specialty Start Date End Date Andrea Ownes MD [address] [place] [address] PCP - General Internal Medicine 02/01/23 Abrahan Hastings MD [address] [place] [address] [address] [place] [address] Surgery, Orthopedic 02/01/23 Carlos Eduardo Fulton MD [address] [place] [address] Cardiovascular Disease 03/20/23 Jose Jolly MD 100 [facility] [address] [place] [address] Primary Screen Printing Machine Operator Helper Cardiovascular Disease 12/12/23 documented as of this encounter
--- OUTSIDE RECORDS SUMMARY | 2025-08-18 20:12 | XMS_ITS | Encounter Summary ---
Author Organization [facility] Address [address] [place] [address] Care Team Providers Care Glass Selector Name Role Phone Abrahan Hastings MD Unavailable Andrea Owens MD Primary Care Provider [phone] Carlos Eduardo Fulton MD Unavailable [phone] Jose Jolly MD Unavailable Encounter Details Date Type Department Care Team (Late st Contact Info) Description 03/04/2023 Erroneous Encounter [facility] [place] [phone] Hiram Paz MD [address] [place] [address] Social History Tobacco Use Types [...] on filedocumented in this encounter Care Teams Glass Selector Relationship Specialty Start Date End Date Andrea Owens MD [address] [place] [address] PCP - General Internal Medicine 02/01/23 Abrahan Hastings MD [address] [place] [address] Surgery, Orthopedic 02/01/23 Carlos Eduardo Fulton MD [address] [place] [address] Cardiovascular Disease 03/20/23 Jose Jolly MD [address] [place] [address] Primary Senior Abap Developer Cardiovascular Disease 12/12/23 documented as of this encounter
--- OUTSIDE RECORDS SUMMARY | 2025-08-18 20:12 | XMS_ITS | Encounter Summary ---
Author Organization [facility] Address [address] [place] [address] Care Team Providers Care Director Digital Analytics Name Role Phone Abrahan Hastings MD Unavailable [phone] Andrea Owens MD Primary Care Provider [phone] Carlos Eduardo Fulton MD Unavailable [phone] Jose Jolly MD Unavailable [phone] Encounter Details Date Type Department Care Team (Late st Contact Info) Description 03/04/2023 Scanned Document [facility] Bone & Joint [place] at [address] [place] [address] Provider, Generic Social History Tobacco [...] on filedocumented in this encounter Care Teams Director Digital Analytics Relationship Specialty Start Date End Date Andrea Owens MD [address] [place] [address] PCP - General Internal Medicine 02/01/23 Abrahan Hastings MD [address] [place] [address] Surgery, Orthopedic 02/01/23 Carlos Eduardo Fulton MD [address] [place] [address] Cardiovascular Disease 03/20/23 Jose Jolly MD [address] [address] Primary Molder Closed Molds Cardiovascular Disease 12/12/23 documented as of this encounter
== END 2025-08-18 16:19 | disposition home or self-care (01) ==
LOC: HO.HMGAL 16:18
PROVIDERS: PCP Internal Medicine; Visit Provider Registered Nurse Emergency
DX: J30.89 Other allergic rhinitis (principal)
CPT/HCPCS: 95117; 95165

== ENCOUNTER 2025-08-25 16:14 | Outpatient (AMB) | payer OTHER, SELFPAY ==
--- OUTSIDE RECORDS SUMMARY | 2024-03-03 05:30 | XMS_ITS ---
Author Organization [facility] Address [address] [place] [address] Care Team Providers Care Glass Blowing Lathe Operator Name Role Phone Andrea Owens Primary Care Provider Romana Valles Unavailable [phone] Mariano Monroy Unavailable [phone] Encounters Encounter Location Date Provider Diagnosis [facility] [address] [facility] [address] [place] [address] 03/03/2024 Mariano Monroy Plan Of Treatment No Information Progress Notes * Shraee MANCUSOOB:1970 ([age] yo M)Acc No.[id number]:03/03/2024 Progress Notes Patient: John TIRADO Provider: Jeff Adhikari DPM :1970 A ge:53 Y S ex:Male Date:03/03/2024 Address:[address] [place] [address], [facility] [id number] Pcp:Andrea Owens Subjective: * Chief Complaints: * * Medical History: Objective: * Vitals: Assessment: Plan: * Treatment: * Images: * The named appointment provid er may or may not be the originator of this progress note, and it is not deemed complete until electronically signed by the appointment provider. Sign off status: Pending * Provider: Jeff Adhikari DPM Date: 0 03/03/2024 Generated for Lakesha quinn/Jennifer/eTransmitting on: 1 10/25/2024 06:53 PM EST
--- OUTSIDE RECORDS SUMMARY | 2024-11-26 05:30 | XMS_ITS ---
Author Organization [facility] Address [address] [place] [address] Care Team Providers Care Manager Purchasing Name Role Phone Andrea Owens Primary Care Provider Romana Valles Unavailable [phone] Encounters Encounter Location Date Provider Diagnosis [address] [address] 11/26/2024 Romana Leyva Plan Of Treatment No Information Progress Notes * MANCUSOStevenRossOB:1970 ([age] yo M)Acc No.[id number]:11/26/2024 Progress Note Patient: John TIRADO Provider: Mari Leyva DPM :1970 A ge:54 Y S ex:Male Date:11/26/2024 Address:[address] [place] [address], [place] Pcp:Andrea Owens Subjective: * Chief Complaints: * * Medical History: Objective: * Vitals: Assessment: Plan: * Treatment: * Images: * The named appointment provid er may or may not be the originator of this progress note, and it is not deemed complete until electronically signed by the appointment provider. Sign off status: Pending * Provider: Mari Leyva DPM Date: 0 11/26/2024 Generated for Lakesha quinn/Jennifer/eTransmitting on: 1 10/25/2024 06:54 PM EST
--- OUTSIDE RECORDS SUMMARY | 2025-02-22 10:45 | XMS_ITS ---
Author Organization [facility] Address [address] [place] [address] Care Team Providers Care Pulp Mill Supervisor Name Role Phone Andrea Owens Primary Care Provider Romana Valles Unavailable [phone] Encounters Encounter Location Date Provider Diagnosis [address] [address] 02/22/2025 Romana Leyva Plan Of Treatment No Information Progress Notes * MANCUSOSteveninDOB:1970 ([age] yo M)Acc No.[id number]:02/22/2025 Progress Note Patient: John TIRADO Provider: Mari Leyva DPM :1970 A ge:54 Y S ex:Male Date:02/22/2025 Address:[address] [place] [address], [place] Pcp:Andrea Owens Subjective: * Chief Complaints: * * Medical History: Objective: * Vitals: Assessment: Plan: * Treatment: * Images: * The named appointment provid er may or may not be the originator of this progress note, and it is not deemed complete until electronically signed by the appointment provider. Sign off status: Pending * Provider: Mari Leyva DPM Date: 0 02/22/2025 Generated for Traceei kai/Jennifer/eTransmitting on: 1 10/25/2024 06:54 PM EST
--- OUTSIDE RECORDS SUMMARY | 2025-04-22 11:00 | XMS_ITS ---
Author Organization [facility] Address [address] [place] [address] Care Team Providers Care Deputy United States Marshal Name Role Phone Andrea Owens Primary Care Provider Romana Valles Unavailable [phone] Encounters Encounter Location Date Provider Diagnosis [address] [address] 04/22/2025 Romana Leyva Plan Of Treatment No Information Progress Notes * MANCUSO ShareeOB:1970 ([age] yo M)Acc No.[id number]:04/22/2025 Progress Note Patient: John TIRADO Provider: Mari Leyva DPM :1970 A ge:54 Y S ex:Male Date:04/22/2025 Address:[address] [place] [address], [place] Pcp:Andrea Owens Subjective: * Chief Complaints: * * Medical History: Objective: * Vitals: Assessment: Plan: * Treatment: * Images: * The named appointment provid er may or may not be the originator of this progress note, and it is not deemed complete until electronically signed by the appointment provider. Sign off status: Pending * Provider: Mari Leyva DPM Date: 0 04/22/2025 Generated for Lakesha quinn/Jennifer/eTransmitting on: 10/25/2024 06:55 PM EST
--- OUTSIDE RECORDS SUMMARY | 2025-08-25 18:54 | XMS_ITS | Encounter Summary ---
Author Organization [facility] Address [address] [place] [address] Care Team Providers Care Cook Relief Name Role Phone Abrahan Hastings MD Unavailable Andrea Owens MD Primary Care Provider [phone] Carlos Eduardo Fulton MD Unavailable Jose Jolly MD Unavailable [phone] Encounter Details Date Type Department Care Team (Late st Contact Info) Description 04/26/2023 Scanned Document [facility] [address] [id number] Abrahan Hastings MD [address] [place] [phone] Social History Tobacco Use Types Packs/Day Years [...] on filedocumented in this encounter Care Teams Cook Relief Relationship Specialty Start Date End Date Andrea Owens MD [address] [place] [address] PCP - General Internal Medicine 02/01/23 Abrahan Hastings MD [address] [place] [address] Surgery, Orthopedic 02/01/23 Carlos Eduardo Fulton MD [address] [place] [address] Cardiovascular Disease 03/20/23 Jose Jolly MD [address] [place] [address] Primary Military Communications Specialist Cardiovascular Disease 12/12/23 documented as of this encounter
--- OUTSIDE RECORDS SUMMARY | 2025-08-25 18:54 | XMS_ITS | Clinical Summary ---
Author Organization [facility] Address [address] [place] [address] Care Team Providers Care Retail Client Manager Name Role Phone Andrea Owens MD Primary Care Provider [phone] Allergies No known active allergies Medications Medication [...] Group Subscriber ID Effective Dates Phone Address [facility] [id number] 2018-Present [address] [facility] [address] [place] [address] HMO Advance Directives For more information, please contact: [phone] Latest Code Status on File Code Status Date Activated Date Inactivated Comments Full Code 03/07/2023 1:16 PM 03/07/2023 11:43 PM This code status was ascertained in the following way: discussion with patient . Care Teams Retail Client Manager Relationship Specialty Start Date End Date Andrea Owens MD [address] [place] [address] PCP - General Internal Medicine 02/19/23
--- OUTSIDE RECORDS SUMMARY | 2025-08-25 18:54 | XMS_ITS | Encounter Summary ---
Author Organization [facility] Address [address] [place] [address] Care Team Providers Care Canary Breeder Name Role Phone Abrahan Hastings MD Unavailable [phone] Andrea Owens MD Primary Care Provider [phone] Carlos Eduardo Fulton MD Unavailable [phone] Jose Jolly MD Unavailable [phone] Encounter Details Date Type Department Care Team (Late st Contact Info) Description 02/28/2023 Scanned Document formerly [facility] [address] [place] [address] Cardiology, Scan Social History Tobacco [...] on filedocumented in this encounter Care Teams Canary Breeder Relationship Specialty Start Date End Date Andrea Owens MD [address] [place] [address] PCP - General Internal Medicine 02/01/23 Abrahan Hastings MD [address] [place] [address] [address] [place] [address] Surgery, Orthopedic 02/01/23 Carlos Eduardo Fulton MD [address] [place] [address] Cardiovascular Disease 03/20/23 Jose Jolly MD [address] [place] [address] [place] [address] Primary Lease Purchase Truck Driver Cardiovascular Disease 12/12/23 documented as of this encounter
--- OUTSIDE RECORDS SUMMARY | 2025-08-25 18:54 | XMS_ITS | Encounter Summary ---
Author Organization [facility] Address [address] [place] [address] Care Team Providers Care Global Supply Chain Vice President Name Role Phone Abrahan Hastings MD Unavailable [phone] Andrea Owens MD Primary Care Provider [phone] Carlos Eduardo Fulton MD Unavailable [phone] Jose Jolly MD Unavailable [phone] Encounter Details Date Type Department Care Team (Late st Contact Info) Description 03/01/2023 Scanned Document [facility] [place] [facility] [address] [place] [address] Cardiology, Scan Social History Tobacco [...] on filedocumented in this encounter Care Teams Global Supply Chain Vice President Relationship Specialty Start Date End Date Andrea Owens MD [address] [place] [address] PCP - General Internal Medicine 02/01/23 Abrahan Hastings MD [address] [place] [address] [address] [place] [address] Surgery, Orthopedic 02/01/23 Carlos Eduardo Fulton MD [address] [place] [address] Cardiovascular Disease 03/20/23 Jose Jolly MD [address] [place] [address] [place] [address] Primary Cold Food Packer Cardiovascular Disease 12/12/23 documented as of this encounter
--- OUTSIDE RECORDS SUMMARY | 2025-08-25 18:54 | XMS_ITS | Patient Health Record ---
Author Organization [facility] Address [address] [place] [address] Care Team Providers Care Operator Vacuum Name Role Phone TYLER, EMILY Unavailable [phone] Abhijeet Buchanan Unavailable [phone] Allergies No Known Allergies Results Component Value Reference Range Notes US SCROTUM AND CONTENTS Reviewed date:08/19/2025 12:17:15 PM Interpretation: Performing Lab: Notes/Report: Note See Note [facility], a member of [employer] Patient Name: JOHN MANCUSO Date of : 1970 Reason for Exam: mass Exam Date: 08/09/2025 [id number] EST Report Status: Final Ordering Provider: ABHIJEET BUCHANAN PCP: EDMUNDO OWENS INDICATION: Left-sangeeta ed testicular mass. FINDINGS: Scrotal ultrasound obtained. No prior studies available for comparison. Right testicle is normal in size, shape and echogenicity. Epididymis is hypoechoic with a speckled appearance suggestive of tubular ectasia which can occur after vasectomy. There is normal vascularity. Left testicle is nor mal in size, shape and echogenicity. There is normal vascularity. On the left side there is a 16 mm solid nodule within the epididymal head which demonstrates vascularity and calcifications. There is no evidence of varicocele or hydrocele. IMPRESSION: 16 mm left epididyma l head nodule. Finding is nonspecific and may represent benign/malignant neoplasm versus inflammatory mass. Urological consultation recommended. -------- FINAL REPOR T -------- Dictated By: Kris Burt Dictated Date: 08/17/2025 14:07 ET Assigned Physician: Kris Burt Reviewed and Electronically Signed By: Kris Burt Signed Date: 10/28/2 025 14:30 ET Workstation ID: [id number] Transcribed By: Self Edit Transcribed Date: 08/17/2025 14:07 ET Urine Culture, Routine-[id number] Reviewed date:08/06/2025 08:58:24 AM Interpretation: Performing Lab:Lilian Acuna, [address], [address], [place], Phone - [phone], Director - [facility] Notes/Report: Urine Culture, Routine Final report Result 1 No growth T3, FREE Reviewed date:03/11/2025 08:16:11 AM Interpretation: Performing Lab:NL2, [facility] [address] Ricardo Rhoades Notes/Report: FASTING: YES FASTING:YES T3, FREE 3.2 2.3-4.2 pg/mL TSH Reviewed date:03/11/2025 08:16:11 AM Interpretation: Performing Lab:NL[facility], [facility] Ricardo Rhoades Notes/Report: FASTING: YES FASTING:YES TSH 0.95 0.40-4.50 mIU/L T4, FREE Reviewed date:03/11/2025 08:16:11 AM Interpretation: Performing Lab:NL[facility], [facility] Ricardo Rhoades Notes/Report: FASTING:YES FASTING: YES T4, FREE 1.1 0.8-1.8 ng/dL HEMOGLOBIN A1c Reviewed date:03/11/2025 08:14:47 AM Interpretation: Performing Lab:NL[facility], [facility] Ricardo Rhoades Notes/Report: FASTING:YES FASTING: YES [...] copy faxed has been acknowledged. Queued to: [phone] URINALYSIS, COMPLETE Reviewed date:03/11/2025 08:16:11 AM Interpretation: Performing Lab:2, [facility] Ricardo Rhoades Notes/Report: FASTING:YES FASTING: YES [...] DIFF/PLT) Reviewed date:03/11/2025 08:15:45 AM Interpretation: Performing Lab:2, [facility] Ricardo Rhoades Notes/Report: FASTING:YES FASTING: YES WHITE BLOOD CELL COUNT 4.7 3.8-10.8 Thousand/uL RED BLOOD CELL COUNT 4.45 4.20-5.80 Million/uL [...] MPV 11.2 7.5-12.5 fL ABSOLUTE NEUTROPHILS 2265 [phone] cells/uL ABSOLUTE LYMPHOCYTES 7649 507-2050 cells/uL ABSOLUTE MONOCYTES 616 200-950 cells/uL ABSOLUTE EOSINOPHILS 61 15-500 cells/uL ABSOLUTE BASOPHILS 19 0-200 cells/uL NEUTROPHILS 48.2 LYMPHOCYTES 37.0 MONOCYTES 13.1 EOSINOPHILS 1.3 BASOPHILS 0.[address]IVE METABOLIC PANE L Reviewed date:03/11/2025 08:16:11 AM Interpretation: Performing Lab:NL2, [facility] Ricardo Rhoades Notes/Report: FASTING:YES FASTING: YES [...] STANDARD Reviewed date:03/11/2025 08:15:51 AM Interpretation: Performing Lab:GERRY2, [facility] Ricardo Rhoades Notes/Report: FASTING:YES FASTING: YES [...] LDL-C. Mark LOPEZ et al. VANESSA. 2013;310(19): 8349-6101 (http://education.[facility]/faq/F AQ164) CHOL/HDLC RATIO 3.5 <5.0 (calc) NON HDL CHOLESTEROL 86 <130 mg/dL (calc) For patients with diabetes plus 1 major ASCVD risk factor, treating to a non-HDL-C goal of <100 mg/dL (LDL-C of <70 mg/dL) is considered a therapeutic option. Reason For Referral Reason evaluate and treat Diagnosis 1 Testicular pain, lef t (N50.812) Diagnosis 2 Urinary frequency (R 35.0) Referral Organization [facility] [address] Referring Provider First Name Abhijeet Referring Provider Last Name Di Referring Provider Speciality Internal M edicine Referred Provider Specialty Urology General Notes STAT referral faxed to [facility] urology [address], p: , f: [phone] Clinical Notes Owen Nelson 025 01:45:26 PM > appt booked for this Saturday at 9:45, pt aware Referral Priority Routine Medications Medication SIG (Take, Route, Frequency, Duration) Notes Start Date End Date Status Carvedilol 25 MG TAKE 1 TABLET BY LUIZA TWICE DAILY WITH FOOD; Duration: 90 Active Rosuvastatin Calcium 20 MG 1 tablet Orally Once a day; Duration: 90 days Active metFORMIN HCl ER 500 MG TAKE 2 TABLETS B Y MOUTH TWICE DAILY; Duration: 30 Active Olmesartan Medoxomil 40 MG 1 tablet Orally Once a day; Duration: 90 days 02/18/2024 Active Mounjaro 12.5 MG/0.5ML ADMINISTER 12.5 M G UNDER THE SKIN WEEKLY; Duration: 28 Active Dexcom G6 Blending Tank Helper - as directed; Durati on: 30 days 11/01/2023 Active Prazosin HCl 5 MG TAKE 1 CAPSULE BY [facility] DAILY AT BEDTIME; Duration: 90 Active Dexcom G6 Transmitter - apply one sensor subcutaneously every 10 days for DX E11.9; Duration: 30 days Active CeleBREX 200 MG 1 capsule with food Orally Once a day Active Dexcom G6 Sensor - APPLY ONE SENSOR SUBCUTANEOUSLY EVERY 10 DAYS; Duration: 30 Active Immunizations Vaccine Route Administration Date Status Comme nts influenza IM Intramuscular 10/15/2023 Administered SHINGRIX IM Intramuscular 11/05/2023 Administered SHINGRIX IM Intramuscular 08/06/2024 Administered SHINGRIX IM Intramuscular 11/09/2024 Administered Tdap IM Intramuscular 11/09/2024 Administered Problems Problem Type SNOMED Code ICD Code Onset Dates Problem Status W/U Status Risk Notes Problem Vitamin B>12< deficiency anaemia (97347807) Vitamin B12 deficiency anemia, unspecified (D51.9) Active confirmed Problem Vitamin D deficiency (21943352) Vitamin D deficiency, unspecified (E55.9) Active confirmed Problem Essential hypertension (96371037) Essential (primary) hypertension (I10) Active confirmed Problem Excessive thirst (61794871) Polydipsia (R63.1) Active confirmed Problem Screening for malignant neoplasm of prostate (350294614) Encounter for screening for malignant neoplasm of prostate (Z12.5) Active confirmed Problem Endocrine/metabolic screening (719792264) Encounter for screening for other suspected endocrine disorder (Z13.29) Active confirmed Problem Screening procedure (98143926) Encounter for screening, unspecified (Z13.9) Active confirmed Problem Essential hypertension (86493526) Essential hypertension (I10) Active confirmed Problem Morbid obesity (767988440) Morbid obesity (E66.01) Active confirmed Problem Backache (529054813) Back pain, unspecified back location, unspecified back pain laterality, unspecified chronicity (M54.9) Active confirmed Problem Pure hypercholesterolemia (358847500) Pure hypercholesterolemia (E78.00) Active confirmed Problem Acquired hypothyroidism (081947186) Acquired hypothyroidism (E03.9) Active confirmed Problem Hyperlipoproteinemia (4226350) Acquired hyperlipoproteinemia (E78.5) Active confirmed Problem Seasonal allergy (185103521) Seasonal allergies (J30.2) Active confirmed Problem Vitamin D deficiency (28928358) Vitamin D deficiency (E55.9) Active confirmed Problem Type II diabetes mellitus without complication (682212621) Type 2 diabetes mellitus without complication, without long-term current use of insulin (E11.9) Active confirmed Problem Dyslipidemia (972635876) Dyslipidemia (E78.5) Active confirmed Problem Obstructive sleep apnea (90681113) Obstructive sleep apnea (G47.33) Active confirmed Problem Hyperglycemia due to type 2 diabetes mellitus (552357668241337) Poorly controlled diabetes mellitus (E11.65) Active confirmed Problem Body mass index 40+ - severely obese (427745652) BMI 45.0-49.9, adult (Z68.42) Active confirmed Vital Signs Heart Rate 84 /min 08/04/2025 Oximetry 98 % 08/04/2025 Blood pressure diastolic 86 mm Hg 08/04/2025 Height 71 in 08/04/2025 Blood pressure systolic 126 mm Hg 08/04/2025 Weight 320.4 lbs 08/04/2025 BMI 44.68 kg/m2 08/04/2025 Encounters Encounter Location Date Provider Diagnosis [address] 11/09/2024 EMILY SCOTT Type 2 diabetes deanne itus without complication, without long-term current use of insulin E11.9 ; Annual physical exam Z00.00 ; Dyslipidemia E78.5 ; Acquired hypothyroidism E03.9 ; Peripheral edema R60.9 and Encounter for immunization Z23 [address] 03/09/2025 EMILY SCOTT Type 2 diabetes deanne itus without complication, without long-term current use of insulin E11.9 ; Dyslipidemia E78.5 ; Acquired hypothyroidism E03.9 ; Peripheral edema R60.9 and Essential hypertension I10 [address] 07/13/2025 EMILY SCOTT Type 2 diabetes deanne itus without complication, without long-term current use of insulin E11.9 ; Dyslipidemia E78.5 ; Acquired hypothyroidism E03.9 ; Peripheral edema R60.9 ; Essential hypertension I10 and Encounter for examination of blood pressure without abnormal findings Z01.[address] 08/04/2025 Abhijeet Attalla Urine troubles R39.8 9 ; Mass of left testicle N50.89 ; Testicular pain, left N50.812 and Blood pressure check Z01.30 [facility] [address] [place] [address] 03/17/2025 EMILY SCOTT [facility] [address] [place] [address] 08/18/2025 Abhijeet Buchanan Assessments Encounter Date Diagnosis (ICD Code) Assessment [...] log exercise and discussed fitness Apps like [employer] which can help keep log off calories [...] Dictation was accomplished with the use of [employer] voice recognition software, prone to medical misidentifications [...] log exercise and discussed fitness Apps like [employer] which can help keep log off calories [...] Dictation was accomplished with the use of [employer] voice recognition software, prone to medical misidentifications [...] Dictation was accomplished with the use of [employer] voice recognition software, prone to medical misidentifications [...] Dictation was accomplished with the use of [employer] voice recognition software, prone to medical misidentifications [...] Dictation was accomplished with the use of [employer] voice recognition software, prone to medical misidentifications [...] Dictation was accomplished with the use of [employer] voice recognition software, prone to medical misidentifications [...] Dictation was accomplished with the use of [employer] voice recognition software, prone to medical misidentifications [...] Dictation was accomplished with the use of [employer] voice recognition software, prone to medical misidentifications [...] Dictation was accomplished with the use of [employer] voice recognition software, prone to medical misidentifications [...] log exercise and discussed fitness Apps like [employer] which can help keep log off calories [...] Dictation was accomplished with the use of [employer] voice recognition software, prone to medical misidentifications [...] Dictation was accomplished with the use of [employer] voice recognition software, prone to medical misidentifications and grammatical errors. This is unintentional and the practitioner does try to identify and correct these, but some could still be present. Please do not hesitate to contact practitioner for clarification. 11/09/2024 Acquired hypothyroidism (ICD-10 - E03.9) # [...] log exercise and discussed fitness Apps like [employer] which can help keep log off calories [...] Dictation was accomplished with the use of [employer] voice recognition software, prone to medical misidentifications [...] Dictation was accomplished with the use of [employer] voice recognition software, prone to medical misidentifications [...] Dictation was accomplished with the use of [employer] voice recognition software, prone to medical misidentifications [...] Dictation was accomplished with the use of [employer] voice recognition software, prone to medical misidentifications [...] Dictation was accomplished with the use of [employer] voice recognition software, prone to medical misidentifications [...] Dictation was accomplished with the use of [employer] voice recognition software, prone to medical misidentifications [...] log exercise and discussed fitness Apps like [employer] which can help keep log off calories [...] Dictation was accomplished with the use of [employer] voice recognition software, prone to medical misidentifications [...] Dictation was accomplished with the use of [employer] voice recognition software, prone to medical misidentifications [...] log exercise and discussed fitness Apps like [employer] which can help keep log off calories [...] Dictation was accomplished with the use of [employer] voice recognition software, prone to medical misidentifications [...] Dictation was accomplished with the use of [employer] voice recognition software, prone to medical misidentifications [...] Ur URINE CULTURE 08/04/2025 LIPID PANEL, STANDARD 07/13/2025 LIPID PANEL, STANDARD [...] 04/30/2024 T3, FREE 04/30/2024 VITAMIN D,25-OH,TOTAL,IA 07/13/2025 US Testicular 08/04/2025 TSH+T3+Free T4+T3 Free 07/13/2025 PPC Urine Dip 08/04/2025 Next Appt Details Provider Name:EMILY SCOTT, 11/15/2025 03:15:00 PM, [address], [place], [address], Insurance Providers Payer Name Payer Address Payer Phone Subscriber Number Group Number Insured Name Patient Relationship to Insured Coverage Start Date Coverage End Date [facility] [address] [place] [address] [phone] [id number] John Mancuso Self - patient is the [...]
--- OUTSIDE RECORDS SUMMARY | 2025-08-25 18:54 | XMS_ITS | Clinical Summary ---
Author Organization [facility] Address [address] [place] [address] Care Team Providers Care Eyelet Cutter Name Role Phone Abrahan Hastings MD Unavailable [phone] Andrea Owens MD Primary Care Provider [phone] Carlos Eduardo Fulton MD Unavailable [phone] Jose Jolly MD Unavailable [phone] Allergies No known active allergies Medications dulaglutide [...] Blood Gluc Sensor (FreeStyle Gilda 2 Sensor) [facility] See Admin Instructions. 3 Active Continuous Blood Gluc Sensor (FreeStyle Gilda 2 Sensor) [facility] USE DIRECTED EVERY 2 WEEKS 3 Active [...] season) 2025 Medical Devices Implanted Type Area Medical Laboratory Assistant Device Identifier Shelf Expiration Date Model / Serial / Lot [id number] Oval 38mm Porous Patella Implanted:Qty: 1 on 04/26/2023 by Abrahan Hastings MD at [facility] Left: Knee 08/27/2029 / / [id number] Tibial Baseplate 7 Left Implanted:Qty: 1 on 04/26/2023 by Abrahan Hastings MD at [facility] Left: Knee 02/20/2032 / [id number] Femur Cr 6 Left Implanted:Qty: 1 on 04/26/2023 by Abrahan Hastings MD at [facility] Left: Knee 07/18/2031 / [id number] 11mm Hf Insert Implanted:Qty: 1 on 04/26/2023 by Abrahan Hastings MD at [facility] Left: Knee 01/13/2032 / / [id number] Procedures Procedure Name Priority Date/Time Associated Diagnosis Comments HEMOGLOBIN A1C WITH ESTIMATED AVERAGE GLUCOSE Routine 02/06/2023 2:09 PM EDT Arthritis of left knee Preop examination Primary hypertension Mixed hyperlipidemia Morbid obesity with BMI of 45.0-49.9, adult ([facility]) BASIC METABOLIC PANEL Routine 02/06/2023 2:09 PM EDT Arthritis of left knee Preop examination Primary hypertension Mixed hyperlipidemia Morbid obesity with BMI of 45.0-49.9, adult ([facility]) from Last 3 Months or Most Recently Relevant to Health Maintenance Results * (ABNORMAL) Hemoglobin A1c with Estimated Average Glucose (02/06/2023 2:09 PM EDT) Hemoglobin A1C 6.1(H) <5.7 % 02/06/2023 8:55 PM EDT [facility] Comment: A1c% Interpretation 5.7 - 6.0 Increase risk of diabetes 6.1 - 6.4 Higher risk of diabetes > or = 6.5 Consistent with diabetes Diabetes Care, 33(Supp 1):S1-S61, 2009 Estimated Average Glucose 128 mg/dL 02/06/2023 8:55 PM EDT [facility] Blood specimen (specimen) Blood specimen / Unknown 02/06/2023 2:09 PM EDT 02/06/2023 8:26 PM EDT [facility] BLOOD ORDERABLES Fi nal Result [facility] See Below [address] [address] * (ABNORMAL) Basic Metabolic Panel (02/06/2023 2:09 PM EDT) Glucose 116(H) 65 - 99 mg/dL 02/06/2023 8:59 PM EDT [facility] Comment:Fasting: <100 mg/dL, Non-Fasting: <200 mg/dL (ADA 2004) Blood Urea Nitrogen (BUN) 12 8 - 21 mg/dL 02/06/2023 8:59 PM EDT [facility] Creatinine 1.0 0.5 - 1.3 mg/dL 02/06/2023 8:59 PM EDT [facility] eGFR >90 >59 02/06/2023 8:59 PM T [facility] Comment: CKD-EPI (2020) in mL/min/1.73 sq meters. Reported eGFR is based on the CKD-EPI equation that does not use a race coefficient as of 12/25/2022 Sodium 140 136 - 145 mmol/L 02/06/2023 8:59 PM EDT [facility] Potassium 3.9 3.4 - 5.3 mmol/L 02/06/2023 8:59 PM T [facility] Chloride 105 98 - 107 mmol/L 02/06/2023 8:59 PM T [facility] CO2 29 22 - 33 mmol/L 02/06/2023 8:59 PM EDT [facility] Anion Gap 6(L) 7 - 17 02/06/2023 8:59 PM EDT [facility] Calcium 8.7 8.7 - 10.5 mg/dL 02/06/2023 8:59 PM T [facility] BUN/Creatinine Ratio 12 10.0 - 25.0 Ratio 02/06/2023 8:59 PM T [facility] Blood specimen (specimen) (Plasma/Serum) 02/06/2023 2:09 PM EDT 02/06/2023 8:26 PM EDT [facility] BLOOD ORDERABLES Fi nal Result [facility] See Below [address] [address] from Last 3 Months or Most Recently Relevant to Health Maintenance Insurance [facility] Advance Directives * Full Code (Latest Code Status on File) Date Activated Date Inactivated Comments 04/26/2023 3:48 PM * Full Code Date Activated Date Inactivated Comments 04/26/2023 8:41 AM 04/26/2023 3:48 PM Care Teams Eyelet Cutter Relationship Specialty Start Date End Date Andrea Owens MD [address] [place] [address] PCP - General Internal Medicine 02/01/23 Abrahan Hastings MD [address] [place] [address] Surgery, Orthopedic 02/01/23 Carlos Eduardo Fulton MD [address] [place] [address] Cardiovascular Disease 03/20/23 Jose Jolly MD [address] [place], [place] [address] [place] [address] Primary Stonecutter Apprentice Hand Cardiovascular Disease 12/12/23
--- OUTSIDE RECORDS SUMMARY | 2025-08-25 18:54 | XMS_ITS | Encounter Summary ---
Author Organization [facility] Address [address] [place] [address] Care Team Providers Care Trailers And Motor Homes Salesperson Name Role Phone Abrahan Hastings MD Unavailable [phone] Andrea wOens MD Primary Care Provider [phone] Carlos Eduardo Fulton MD Unavailable [phone] Jose Jolly MD Unavailable [phone] Encounter Details Date Type Department Care Team (Late st Contact Info) Description 03/01/2023 Scanned Document [facility] [place] [facility] [address] [place] [address] Provider, Generic Social History Tobacco [...] on filedocumented in this encounter Care Teams Trailers And Motor Homes Salesperson Relationship Specialty Start Date End Date Andrea Owens MD [address] [place] [address] PCP - General Internal Medicine 02/01/23 Abrahan Hastings MD [address] [place] [address] Surgery, Orthopedic 02/01/23 Carlos Eduardo Fulton MD [address] [place] [address] Cardiovascular Disease 03/20/23 Jose Jolly MD 100 [facility] [address] [place] [address] Primary Operation Shift Supervisor Cardiovascular Disease 12/12/23 documented as of this encounter
--- OUTSIDE RECORDS SUMMARY | 2025-08-25 18:54 | XMS_ITS | Clinical Summary ---
Author Organization [facility] Address [address] [place] [address] Phone Care Team Providers Care Treasurer [employer] Name Role Phone Andrea Owens MD Primary Care Provider [phone] Encounters Date Type Department Care Team Description 08/09/2025 1:31 PM EDT - 08/09/2025 11:59 PM EDT Hospital Encounter [facility] Ultrasound [address] [place] [phone] Mass of left testicle Discharge Disposition: Home or Self Care from Last 3 Months Surgical History Surgery Date Site/Laterality Comments SINUS SURGERY PROCEDURE:SINUS SURGERY HAND SURGERY PROCEDURE:HAND SURGERY CARDIAC CATHETERIZATION 03/07/2023 N/A PROCEDURE:CARDIAC CATHETERIZATION;COMMENT:Procedure: LEFT HEART CATHETERIZATION; Surgeon: Ishmael Kent DO; Location: [facility] CARDIAC LINK ASSEMBLER; Service: Cardiology; Laterality: N/A; CARDIAC CATHETERIZATION 03/07/2023 N/A PROCEDURE:CARDIAC CATHETERIZATION;COMMENT:Procedure: CORONARY ANGIOGRAPHY; Surgeon: Ishmael Kent DO; Location: [facility] CARDIAC LINK ASSEMBLER; Service: Cardiology; Laterality: N/A; Medical History Medical [...] Signed Date: 08/17/2025 14:30 ET Workstation ID: [id number] Transcribed By: Self Edit Transcribed Date: 08/17/2025 [...] Signed Date: 08/17/2025 14:30 ET Workstation ID: [id number] Transcribed By: Self Edit Transcribed Date: 08/17/2025 14:07 ET Abhijeet ANSARI IM US PROCEDURES Final Result from Last 3 Months Insurance [facility] [address] [place] [address] Care Teams Treasurer [employer] Relationship Specialty Start Date End Date Andrea Owens MD [address] [place] [address] PCP - General 02/19/23
--- OUTSIDE RECORDS SUMMARY | 2025-08-25 18:54 | XMS_ITS | Encounter Summary ---
Author Organization [facility] Address [address] [place] [address] Care Team Providers Care Adjunct Instructor Name Role Phone Abrahan Hastings MD Unavailable [phone] Andrea Owens MD Primary Care Provider [phone] Carlos Eduardo Fulton MD Unavailable [phone] Jose Jolly MD Unavailable [phone] Encounter Details Date Type Department Care Team (Late st Contact Info) Description 03/04/2023 Scanned Document [facility] Bone & Joint [place] [facility] [address] [place] [address] Provider, Generic Social History Tobacco [...] on filedocumented in this encounter Care Teams Adjunct Instructor Relationship Specialty Start Date End Date Andrea Owens MD [address] [place] [address] PCP - General Internal Medicine 02/01/23 Abrahan Hastings MD [address] [place] [address] Surgery, Orthopedic 02/01/23 Carlos Eduardo Fulton MD [address] [place] [address] Cardiovascular Disease 03/20/23 Jose Jolly MD [address] [address] Primary Chief Cardiopulmonary Technologist Cardiovascular Disease 12/12/23 documented as of this encounter
--- OUTSIDE RECORDS SUMMARY | 2025-08-25 18:54 | XMS_ITS | Encounter Summary ---
Author Organization [facility] Address [address] [place] [address] Care Team Providers Care Line Locator Name Role Phone Abrahan Hastings MD Unavailable [phone] Andrea Owens MD Primary Care Provider [phone] Carlos Eduardo Fulton MD Unavailable [phone] Jose Jolly MD Unavailable Encounter Details Date Type Department Care Team (Late st Contact Info) Description 03/04/2023 Scanned Document [facility] [place] [facility] [address] [place] [address] Provider, Generic Social History Tobacco [...] on filedocumented in this encounter Care Teams Line Locator Relationship Specialty Start Date End Date Andrea Owens MD [address] [place] [address] PCP - General Internal Medicine 02/01/23 Abrahan Hastings MD [address] [place] [address] Surgery, Orthopedic 02/01/23 Carlos Eduardo Fulton MD [address] [place] [address] Cardiovascular Disease 03/20/23 Jose Jolly MD [address] [address] Primary Pack Worker Cardiovascular Disease 12/12/23 documented as of this encounter
--- OUTSIDE RECORDS SUMMARY | 2025-08-25 18:55 | XMS_ITS | Encounter Summary ---
Author Organization [facility] Address [address] [place] [address] Care Team Providers Care Underwear Welter Name Role Phone Abrahan Hastings MD Unavailable [phone] Andrea Owens MD Primary Care Provider [phone] Carlos Eduardo Fulton MD Unavailable [phone] Jose Jolly MD Unavailable [phone] Encounter Details Date Type Department Care Team (Late st Contact Info) Description 03/04/2023 Scanned Document [facility] [place] at [address] [place] [address] Provider, Generic Social History Tobacco [...] on filedocumented in this encounter Care Teams Underwear Welter Relationship Specialty Start Date End Date Andrea Owens MD [address] [place] [address] PCP - General Internal Medicine 02/01/23 Abrahan Hastings MD [address] [place] [address] Surgery, Orthopedic 02/01/23 Carlos Eduardo Fulton MD [address] [place] [address] Cardiovascular Disease 03/20/23 Jose Jolly MD [address] [address] Primary Micro Computer Data Processor Cardiovascular Disease 12/12/23 documented as of this encounter
--- OUTSIDE RECORDS SUMMARY | 2025-08-25 18:55 | XMS_ITS | Patient Health Record ---
Author Organization [facility] Address [address] [facility] [address] Care Team Providers Care Mercury Recoverer Name Role Phone Owens, Andrea Primary Care Provider Romana Valles Unavailable [phone] Allergies No Known Allergies Results Component Value [...] toe of lesser toe of right foot (8901060973281470 8) Other hammer toe(s) (acquired), right foot (M20.41) Active confirmed Problem Acquired hammer toe of lesser toe of left foot (0392060257269817 3) Other hammer toe(s) (acquired), left foot (M20.42) Active confirmed Problem Polyneuropathy due to type 2 diabetes mellitus (939245042) Type 2 diabetes mellitus with diabetic polyneuropathy (E11.42) Active confirmed Vital Signs Blood pressure diastolic 70 mm Hg 05/13/2025 Height 6ft in 05/13/2025 Blood pressure systolic 140 mm Hg 05/13/2025 Weight 315 lbs 05/13/2025 BMI 42.72 kg/m2 05/13/2025 Encounters Encounter Location Date Provider Diagnosis [facility] [address] [place] [address] 12/14/2024 Romana Leyva Onychomycosis B35.1 ; Type 2 diabetes mellitus with diabetic polyneuropathy E11.42 ; Tinea pedis of both feet B35.3 ; Other hammer toe(s) (acquired), right foot M20.41 and Other hammer toe(s) (acquired), left foot M20.42 [facility] [address] [place] [address] 05/13/2025 Romana Leyva Onychomycosis B35.1 ; Type 2 diabetes mellitus with diabetic polyneuropathy E11.42 and Tinea pedis of both feet B35.3 [facility] [address] [address] 11/26/2024 Romana Perica [facility] [address] 12/22/2024 [facility] [address] [place] [address] 02/19/2025 Romana Perica [facility] [address] [place] [address] 04/20/2025 Romana Perica [address] [address] 05/13/2025 Romana Leyva Assessments Encounter Date Diagnosis [...] (LFT) 12/14/2024 *Liver Function Test (LFT) 05/13/2025 [id number] Plate 09/02/2018 68133-CDE 04/30/2014 98098- Debride <25 sq cm 06/15/2014 31954- Debride <25 sq cm 10/30/2013 24294-UPNMYOC SKIN/TISSUE 05/19/2014 25424 I&D ABSCESS- SIMPLE,SINGLE 015 07373 I&D ABSCESS- SIMPLE,SINGLE 014 [id number] I&D ABSCESS- SIMPLE,SINGLE 013 60721-YJQC SKIN LESIONS, OVER 4 05/29/20 24 89647- Nail Unit Biopsy 09/02/2018 Insurance Providers Payer Name Payer Address Payer Phone Subscriber Number Group Number Insured Name Patient Relationship to Insured Coverage Start Date Coverage End Date [facility] [address] [place] [address] [id number] John Mancuso Self - patient is the insured Medical (General) History Medical History History ICD Code Anemia Back,Hip,and Knee pain covid-19 Diabetic high blood pressure Surgical History Surgery Date(Month/Year) left wrist surgery nasal surgery knee surgery 04/12
--- OUTSIDE RECORDS SUMMARY | 2025-08-25 18:55 | XMS_ITS | Encounter Summary ---
Author Organization [facility] Address [address] [place] [address] Care Team Providers Care Cleaner And Preparer Name Role Phone Abrahan Hastings MD Unavailable [phone] Andrea Owens MD Primary Care Provider [phone] Carlos Eduardo Fulton MD Unavailable Jose Jolly MD Unavailable [phone] Encounter Details Date Type Department Care Team ([facility] st Contact Info) Description 04/19/2023 Scanned Document [facility] [address] [address] Abrahan Hastings MD [address] [place] [address] [id number] Social History Tobacco Use Types Packs/Day Years [...] on filedocumented in this encounter Care Teams Cleaner And Preparer Relationship Specialty Start Date End Date Andrea Owens MD [address] [place] [address] PCP - General Internal Medicine 02/01/23 Abrahan Hastings MD [address] [place] [address] Surgery, Orthopedic 02/01/23 Carlos Eduardo Fulton MD [address] [place] [address] Cardiovascular Disease 03/20/23 Jose Jolly MD [address] [place] [address] Primary Mixed Animal Veterinarian Cardiovascular Disease 12/12/23 documented as of this encounter
== END 2025-08-25 16:14 | disposition home or self-care (01) ==
LOC: HO.HMGAL 16:14
PROVIDERS: PCP Internal Medicine; Visit Provider Registered Nurse Emergency
DX: J30.89 Other allergic rhinitis (principal)
CPT/HCPCS: 95117; 95165

== ENCOUNTER 2025-09-08 16:15 | Outpatient (AMB) | payer OTHER, SELFPAY ==
--- OUTSIDE RECORDS SUMMARY | 2024-11-26 05:30 | XMS_ITS ---
Author Organization [facility] Address [address] [place] [address] Care Team Providers Care Cnc Machine Operator Name Role Phone Andrea Owens Primary Care Provider Romana Valles Unavailable [phone] Encounters Encounter Location Date Provider Diagnosis [address] [address] 11/26/2024 Romana Leyva Plan Of Treatment No Information Progress Notes * MANCUSOSteveninDOB:1970 ([age] yo M)Acc No.[id number]:11/26/2024 Progress Note Patient: John TIRADO Provider: Mari Leyva DPM :1970 A ge:54 Y S ex:Male Date:11/26/2024 Address:[address] [place] [address], [place] Pcp:Andrea Owens Subjective: * Chief Complaints: [...] Leyva DPM Date: 0 11/26/2024 Generated for Traceei kai/Jennifer/eTransmitting on: 11/09/2024 04:46 AM EST
--- OUTSIDE RECORDS SUMMARY | 2025-02-22 10:45 | XMS_ITS ---
Author Organization [facility] Address [address] [place] [address] Care Team Providers Care Muck Operator Name Role Phone Andrea Owens Primary Care Provider Romana Valles Unavailable [phone] Encounters Encounter Location Date Provider Diagnosis [address] [address] 02/22/2025 Romana Leyva Plan Of Treatment No Information Progress Notes * MANCUSOSteveninDOB:1970 ([age] yo M)Acc No.[id number]:02/22/2025 Progress Note Patient: John TIRADO Provider: Mari Leyva DPM :1970 A ge:54 Y S ex:Male Date:02/22/2025 Address:[address] [place] [address], [place] Pcp:Andrea Owens Subjective: * Chief Complaints: [...] 0 02/22/2025 Generated for Traceei kai/Jennifer/eTransmitting on: 11/09/2024 04:45 AM EST
--- OUTSIDE RECORDS SUMMARY | 2025-04-22 11:00 | XMS_ITS ---
Author Organization [facility] Address [address] [place] [address] Care Team Providers Care Safety Deposit Boxes Custodian Name Role Phone Andrea Oewns Primary Care Provider Romana Valles Unavailable [phone] Encounters Encounter Location Date Provider Diagnosis [address] [address] 04/22/2025 Romana Leyva Plan Of Treatment No Information Progress Notes * MANCUSO SteveninDOB:1970 ([age] yo M)Acc No.[id number]:04/22/2025 Progress Note Patient: John TIRADO Provider: Mari Leyva DPM :1970 A ge:54 Y S ex:Male Date:04/22/2025 Address:[address] [place] [address], [place] Pcp:Andrea Owens Subjective: * Chief Complaints: [...] Leyva DPM Date: 0 04/22/2025 Generated for Traceei kia/Jennifer/eTransmitting on: 11/09/2024 04:46 AM EST
--- OUTSIDE RECORDS SUMMARY | 2025-09-09 04:45 | XMS_ITS | Encounter Summary ---
Author Organization [facility] Address [address] [place] [address] Care Team Providers Care Mast Maker Name Role Phone Abrahan Hastings MD Unavailable Andrea Owens MD Primary Care Provider Carlos Eduardo Fulton MD Unavailable [phone] Jose Jolly MD Unavailable [phone] Encounter Details Date Type Department Care Team (Late st Contact Info) Description 04/26/2023 Scanned Document [facility] [address] [address] Abrahan Hastings MD [address] [place] [address] [phone] Social History Tobacco Use Types Packs/Day Years [...] on filedocumented in this encounter Care Teams Mast Maker Relationship Specialty Start Date End Date Andrea Owens MD [address] [place] [address] PCP - General Internal Medicine 02/01/23 Abrahan Hastings MD [address] [place] [address] Surgery, Orthopedic 02/01/23 Carlos Eduardo Fulton MD [address] [place] [address] Cardiovascular Disease 03/20/23 Jose Jolly MD [address] [place] [address] Primary Unhairing Inspector Cardiovascular Disease 12/12/23 documented as of this encounter
--- OUTSIDE RECORDS SUMMARY | 2025-09-09 04:45 | XMS_ITS | Patient Health Record ---
Author Organization [facility] Address [address] [place] [address] Care Team Providers Care Greaser And Oiler Name Role Phone TYLEREMILY Troncoso Unavailable [phone] Abhijeet Bcuhanan Unavailable [phone] Allergies No Known Allergies Results Component Value Reference Range Flag Notes US SCROTUM AND CONTENTS Reviewed date:08/19/2025 12:17:15 PM Interpretation: Performing Lab: Notes/Report: Note See Note [facility], a member of [employer] Patient Name: JOHN MANCUSO Date of : 1970 Reason for Exam: mass Exam Date: 08/09/2025 [id number] EST Report Status: Final Ordering Provider: ABHIJEET [...] Signed Date: 08/17/2025 14:30 ET Workstation ID: [id number] Transcribed By: Self Edit Transcribed Date: 08/17/2025 14:07 ET Urine Culture, Routine-[id number] Reviewed date:08/06/2025 08:58:24 AM Interpretation: Performing Lab:Lilian Acuna, [address], [address], [place], Phone - [phone], Director - [facility] Notes/Report: Urine Culture, Routine Final report Result 1 No growth URINALYSIS, COMPLETE Reviewed date:03/11/2025 08:16:11 AM Interpretation: Performing Lab:NL2, [email or web address] [facility] Ricardo Rhoades Notes/Report: FASTING:YES FASTING: YES COLOR YELLOW YELLOW N APPEARANCE CLEAR CLEAR N SPECIFIC GRAVITY 1.027 1.001-1.035 N PH 6.5 5.0-8.0 N GLUCOSE NEGATIVE NEGATIVE N BILIRUBIN NEGATIVE NEGATIVE N KETONES TRACE NEGATIVE A OCCULT BLOOD NEGATIVE NEGATIVE N PROTEIN TRACE NEGATIVE A NITRITE NEGATIVE NEGATIVE N LEUKOCYTE ESTERASE NEGATIVE NEGATIVE N WBC NONE SEEN < OR = 5 /HPF N RBC 0-2 < OR = 2 /HPF N SQUAMOUS EPITHELIAL CELLS NONE SEEN < OR = 5 /HPF N BACTERIA NONE SEEN NONE SEEN /HPF N HYALINE CAST NONE SEEN NONE SEEN /LPF N NOTE This urine was analyzed for the presence of WBC, RBC, bacteria, casts, and other formed elements. Only those elements seen were reported. CBC (INCLUDES DIFF/PLT) Reviewed date:03/11/2025 08:15:45 AM Interpretation: Performing Lab:NL2, [email or web address] [facility] [address] Ricardo Rhoades Notes/Report: FASTING:YES FASTING: YES WHITE BLOOD CELL COUNT 4.7 3.8-10.8 Thousand/uL N RED BLOOD CELL COUNT 4.45 4.20-5.80 Million/uL N HEMOGLOBIN 11.6 13.2-17.1 g/dL L HEMATOCRIT 37.5 38.5-50.0 % L MCV 84.3 80.0-100.0 fL N MCH 26.1 27.0-33.0 pg L MCHC 30.9 32.0-36.0 g/dL L For adults, a slight decrease in the calculated MCHC value (in the range of 30 to 32 g/dL) is most likely not clinically significant; however, it should be interpreted with caution in correlation with other red cell parameters and the patient's clinical condition. RDW 16.0 11.0-15.0 % H PLATELET COUNT 231 140-400 Thousand/uL N MPV 11.2 7.5-12.5 fL N ABSOLUTE NEUTROPHILS 2265 1793-4414 cells/uL N ABSOLUTE LYMPHOCYTES 9956 593-2134 cells/uL N ABSOLUTE MONOCYTES 616 200-950 cells/uL N ABSOLUTE EOSINOPHILS 61 15-500 cells/uL N ABSOLUTE BASOPHILS 19 0-200 cells/uL N NEUTROPHILS 48.2 N LYMPHOCYTES 37.0 N MONOCYTES 13.1 N EOSINOPHILS 1.3 N BASOPHILS 0.4 N COMPREHENSIVE METABOLIC PANE L Reviewed date:03/11/2025 08:16:11 AM Interpretation: Performing Lab:NL2, [email or web address] [facility] [address] [place], [place] [id number] Ricardo Rhoades Notes/Report: FASTING:YES FASTING: YES GLUCOSE 79 65-99 mg/dL N Fasting reference interval UREA NITROGEN (BUN) 13 7-25 mg/dL N CREATININE 0.92 0.70-1.30 mg/dL N EGFR 99 > OR = 60 mL/min/1.73m2 N BUN/CREATININE RATIO SEE NOTE: 6-22 (calc) Not Reported: BUN and Creatinine are within reference range. SODIUM 139 135-146 mmol/L N POTASSIUM 3.9 3.5-5.3 mmol/L N CHLORIDE 103 98-110 mmol/L N CARBON DIOXIDE 28 20-32 mmol/L N CALCIUM 8.7 8.6-10.3 mg/dL N PROTEIN, TOTAL 6.8 6.1-8.1 g/dL N ALBUMIN 4.0 3.6-5.1 g/dL N GLOBULIN 2.8 1.9-3.7 g/dL (calc) N ALBUMIN/GLOBULIN RATIO 1.4 1.0-2.5 (calc) N BILIRUBIN, TOTAL 0.4 0.2-1.2 mg/dL N ALKALINE PHOSPHATASE 53 35-144 U/L N AST 17 10-35 U/L N ALT 15 9-46 U/L N LIPID PANEL, STANDARD Reviewed date:03/11/2025 08:15:51 AM Interpretation: Performing Lab:GERRY2, [email or web address] [facility] [address] Ricardo Rhoades Notes/Report: FASTING:YES FASTING: YES CHOLESTEROL, TOTAL 120 <200 mg/dL N HDL CHOLESTEROL 34 > OR = 40 mg/dL L TRIGLYCERIDES 98 <150 mg/dL N LDL-CHOLESTEROL 68 N Reference range: <100 Desirable range <100 mg/dL for primary prevention; <70 mg/dL for patients with CHD or diabetic patients with > or = 2 CHD risk factors. LDL-C is now calculated using the Ld calculation, which is a validated novel method providing better accuracy than the Friedewald equation in the estimation of LDL-C. Mark SS et al. VANESSA. 2013;310(64): 3702-3601 (http://education.Kriyari/faq /GXB821) CHOL/HDLC RATIO 3.5 <5.0 (calc) N NON HDL CHOLESTEROL 86 <130 mg/dL (calc) N For patients with diabetes plus 1 major ASCVD risk factor, treating to a non-HDL-C goal of <100 mg/dL (LDL-C of <70 mg/dL) is considered a therapeutic option. T3, FREE Reviewed date:03/11/2025 08:16:11 AM Interpretation: Performing Lab:GERRY2, [email or web address] [facility] [address] Ricardo Rhoades Notes/Report: FASTING:YES FASTING: YES T3, FREE 3.2 2.3-4.2 pg/mL N TSH Reviewed date:03/11/2025 08:16:11 AM Interpretation: Performing Lab:NL2, [email or web address] [facility] [address] Ricardo Rhoades Notes/Report: FASTING:YES FASTING: YES TSH 0.95 0.40-4.50 mIU/L N T4, FREE Reviewed date:03/11/2025 08:16:11 AM Interpretation: Performing Lab:NL2, [email or web address] [facility] [address] Ricardo Rhoades Notes/Report: FASTING:YES FASTING: YES T4, FREE 1.1 0.8-1.8 ng/dL N HEMOGLOBIN A1c Reviewed date:03/11/2025 08:14:47 AM Interpretation: Performing Lab:NL2, [email or web address] [facility] [address] [place], [place] [phone] Ricardo Rhoades Notes/Report: FASTING:YES FASTING: YES HEMOGLOBIN A1c 5.9 <5.7 % H For someone without known diabetes, a hemoglobin [...] copy faxed has been acknowledged. Queued to: [id number] Reason For Referral Reason evaluate and treat Diagnosis 1 Testicular pain, lef t (N50.812) Diagnosis 2 Urinary frequency (R 35.0) Referral Organization [facility] [address] Referring Provider First Name Abhijeet Referring Provider Last Name Di Referring Provider Speciality Internal M edicine Referred Provider Specialty Urology General Notes STAT referral faxed to [facility] urology [address] [place] [address] [address], p: , f: [phone] Clinical Notes Owen Nelson 025 01:45:26 PM > appt booked for this Saturday at 9:45, pt aware Referral Priority Routine Medications Medication SIG (Take, Route, Frequency, Duration) Notes Start Date End Date Status Carvedilol 25 MG Tablet TAKE 1 TABLET BY MOUTH TWICE DAILY WITH FOOD; Duration: 90 Active Rosuvastatin Calcium 20 MG Tablet 1 tablet Orally Once a day; Duration: 90 days Active metFORMIN HCl ER 500 MG Tablet Extended Release 24 Hour TAKE 2 TABLETS BY MOUTH TWICE DAILY; Duration: 30 Active Olmesartan Medoxomil 40 MG Tablet 1 tablet Orally Once a day; Duration: 90 days 02/18/2024 Active Mounjaro 12.5 MG/0.5ML Solution Auto-injector ADMINISTER 12.5 MG UNDER THE SKIN WEEKLY; Duration: 28 Active Dexcom G6 Banking Paralegal - Device as directed; Duration: 30 days 11/01/2023 Active Prazosin HCl 5 MG Capsule TAKE 1 CAPSULE BY MOUTH DAILY AT BEDTIME; Duration: 90 Active Dexcom G6 Transmitter - Miscellaneous apply one sensor subcutaneously every 10 days for DX E11.9; Duration: 30 days Active CeleBREX 200 MG Capsule 1 capsule with f ood Orally Once a day Active Dexcom G6 Sensor - Miscellaneous APPLY ONE SENSOR SUBCUTANEOUSLY EVERY 10 DAYS; Duration: 30 Active Immunizations Vaccine Route Administration Date Status Comme nts influenza IM Intramuscular 10/15/2023 Administered SHINGRIX IM Intramuscular 11/05/2023 Administered SHINGRIX IM Intramuscular 08/06/2024 Administered SHINGRIX IM Intramuscular 11/09/2024 Administered Tdap IM Intramuscular 11/09/2024 Administered Social History Section Notes: Tob: Never ETOH: Rare Drug Use: None Parking Manager Tob: Never ETOH: Rare Drug Use: None Parking Manager Tob: Never ETOH: Rare Drug Use: None Parking Manager Tob: Never ETOH: Rare Drug Use: None Parking Manager Tob: Never ETOH: Rare Drug Use: None Parking Manager Tob: Never ETOH: Rare Drug Use: None Parking Manager Tob: Never ETOH: Rare Drug Use: None Parking Manager Tob: Never ETOH: Rare Drug Use: None Parking Manager Tob: Never ETOH: Rare Drug Use: None Parking Manager Tob: Never ETOH: Rare Drug Use: None Parking Manager Tob: Never ETOH: Rare Drug Use: None Parking Manager Tob: Never ETOH: Rare Drug Use: None Parking Manager Tob: Never ETOH: Rare Drug Use: None Parking Manager Tob: Never ETOH: Rare Drug Use: None Parking Manager Tob: Never ETOH: Rare Drug Use: None Parking Manager Problems Problem Type SNOMED Code ICD Code Onset Dates Problem Status W/U Status Risk Notes Problem Vitamin B>12< deficiency anaemia (80761877) Vitamin B12 deficiency anemia, unspecified (D51.9) Active confirmed Problem Vitamin D deficiency (13161844) Vitamin D deficiency, unspecified (E55.9) Active confirmed Problem Essential hypertension (88799178) Essential (primary) hypertension (I10) Active confirmed Problem Excessive thirst (72123954) Polydipsia (R63.1) Active confirmed Problem Screening for malignant neoplasm of prostate (788348129) Encounter for screening for malignant neoplasm of prostate (Z12.5) Active confirmed Problem Endocrine/metabolic screening (072758559) Encounter for screening for other suspected endocrine disorder (Z13.29) Active confirmed Problem Screening procedure (15060236) Encounter for screening, unspecified (Z13.9) Active confirmed Problem Essential hypertension (56450627) Essential hypertension (I10) Active confirmed Problem Morbid obesity (879426335) Morbid obesity (E66.01) Active confirmed Problem Backache (891008261) Back pain, unspecified back location, unspecified back pain laterality, unspecified chronicity (M54.9) Active confirmed Problem Pure hypercholesterolemia (831463764) Pure hypercholesterolemia (E78.00) Active confirmed Problem Acquired hypothyroidism (317421285) Acquired hypothyroidism (E03.9) Active confirmed Problem Hyperlipoproteinemia (3766213) Acquired hyperlipoproteinemia (E78.5) Active confirmed Problem Seasonal allergy (020394292) Seasonal allergies (J30.2) Active confirmed Problem Vitamin D deficiency (37225881) Vitamin D deficiency (E55.9) Active confirmed Problem Type II diabetes mellitus without complication (205985833) Type 2 diabetes mellitus without complication, without long-term current use of insulin (E11.9) Active confirmed Problem Dyslipidemia (294633541) Dyslipidemia (E78.5) Active confirmed Problem Obstructive sleep apnea (52823176) Obstructive sleep apnea (G47.33) Active confirmed Problem Hyperglycemia due to type 2 diabetes mellitus (163680337636648) Poorly controlled diabetes mellitus (E11.65) Active confirmed Problem Body mass index 40+ - severely obese (464450711) BMI 45.0-49.9, adult (Z68.42) Active confirmed Vital Signs Heart Rate 84 /min 08/04/2025 Oximetry 98 % 08/04/2025 Blood pressure diastolic 86 mm Hg 08/04/2025 Height 71 in 08/04/2025 Blood pressure systolic 126 mm Hg 08/04/2025 Weight 320.4 lbs 08/04/2025 BMI 44.68 kg/m2 08/04/2025 Encounters Encounter Location Date Provider Diagnosis [facility] [address] [place] [address] 11/09/2024 EMILY SCOTT Type 2 diabetes deanne itus without complication, without long-term current use of insulin E11.9 ; Annual physical exam Z00.00 ; Dyslipidemia E78.5 ; Acquired hypothyroidism E03.9 ; Peripheral edema R60.9 and Encounter for immunization Z23 [facility] [address] [place], [place] 03/09/2025 EMILY SCOTT Type 2 diabetes deanne itus without complication, without long-term current use of insulin E11.9 ; Dyslipidemia E78.5 ; Acquired hypothyroidism E03.9 ; Peripheral edema R60.9 and Essential hypertension I10 [facility] 07/13/2025 EMILY SCOTT Type 2 diabetes deanne itus without complication, without long-term current use of insulin E11.9 ; Dyslipidemia E78.5 ; Acquired hypothyroidism E03.9 ; Peripheral edema R60.9 ; Essential hypertension I10 and Encounter for examination of blood pressure without abnormal findings Z01.[address] [address] 08/04/2025 Abhijeet Buchanan Urine troubles R39.8 9 ; Mass of left testicle N50.89 ; Testicular pain, left N50.812 and Blood pressure check Z01.30 [facility] [phone] [address] 03/17/2025 EMILY SCOTT [address] 08/18/2025 Abhijeet Buchanan Assessments Encounter Date Diagnosis (ICD Code) Assessment Notes Treatment Notes Treatment Clinical Notes Section Notes 08/04/2025 Urine troubles (ICD-10 - R39.89) Patient [...] Dictation was accomplished with the use of Aqua-tools voice recognition software, prone to medical misidentifications and grammatical errors. This is unintentional and the practitioner does try to identify and correct these, but some could still be present. Please do not hesitate to contact practitioner for clarification. 03/09/2025 Type 2 diabetes mellitus without complication, [...] Dictation was accomplished with the use of Aqua-tools voice recognition software, prone to medical misidentifications [...] Dictation was accomplished with the use of Aqua-tools voice recognition software, prone to medical misidentifications [...] log exercise and discussed fitness Apps like Cinetraffic which can help keep log off calories [...] Dictation was accomplished with the use of Aqua-tools voice recognition software, prone to medical misidentifications [...] log exercise and discussed fitness Apps like [employer] which can help keep log off calories [...] Dictation was accomplished with the use of Aqua-tools voice recognition software, prone to medical misidentifications [...] Dictation was accomplished with the use of Aqua-tools voice recognition software, prone to medical misidentifications [...] Dictation was accomplished with the use of Aqua-tools voice recognition software, prone to medical misidentifications [...] Dictation was accomplished with the use of Aqua-tools voice recognition software, prone to medical misidentifications [...] Dictation was accomplished with the use of Aqua-tools voice recognition software, prone to medical misidentifications [...] log exercise and discussed fitness Apps like [employer] which can help keep log off calories [...] Dictation was accomplished with the use of Aqua-tools voice recognition software, prone to medical misidentifications [...] Dictation was accomplished with the use of Aqua-tools voice recognition software, prone to medical misidentifications and grammatical errors. This is unintentional and the practitioner does try to identify and correct these, but some could still be present. Please do not hesitate to contact practitioner for clarification. 08/04/2025 Testicular pain, left (ICD-10 - N50.812) [...] Dictation was accomplished with the use of Aqua-tools voice recognition software, prone to medical misidentifications and grammatical errors. This is unintentional and the practitioner does try to identify and correct these, but some could still be present. Please do not hesitate to contact practitioner for clarification. 03/09/2025 Peripheral edema (ICD-10 - R60.9) # [...] Dictation was accomplished with the use of Aqua-tools voice recognition software, prone to medical misidentifications [...] log exercise and discussed fitness Apps like [employer] which can help keep log off calories [...] Dictation was accomplished with the use of Aqua-tools voice recognition software, prone to medical misidentifications [...] Dictation was accomplished with the use of Aqua-tools voice recognition software, prone to medical misidentifications [...] Dictation was accomplished with the use of Aqua-tools voice recognition software, prone to medical misidentifications [...] log exercise and discussed fitness Apps like [employer] which can help keep log off calories [...] Dictation was accomplished with the use of Aqua-tools voice recognition software, prone to medical misidentifications [...] Dictation was accomplished with the use of Aqua-tools voice recognition software, prone to medical misidentifications and grammatical errors. This is unintentional and the practitioner does try to identify and correct these, but some could still be present. Please do not hesitate to contact practitioner for clarification. 03/09/2025 Essential hypertension (ICD-10 - I10) # [...] Dictation was accomplished with the use of Aqua-tools voice recognition software, prone to medical misidentifications [...] log exercise and discussed fitness Apps like [employer] which can help keep log off calories [...] Dictation was accomplished with the use of Aqua-tools voice recognition software, prone to medical misidentifications [...] Dictation was accomplished with the use of Aqua-tools voice recognition software, prone to medical misidentifications [...] Ur URINE CULTURE 08/04/2025 LIPID PANEL, STANDARD 04/30/2024 LIPID PANEL, STANDARD 07/13/2025 LIPID PANEL, STANDARD 11/05/2023 COMPREHENSIVE METABOLIC PANEL 11/05/2023 COMPREHENSIVE METABOLIC PANEL 07/13/2025 COMPREHENSIVE METABOLIC PANEL 04/30/2024 CBC (INCLUDES DIFF/PLT) 04/30/2024 CBC (INCLUDES DIFF/PLT) 11/05/2023 CBC (INCLUDES DIFF/PLT) 07/13/2025 URINALYSIS, COMPLETE 11/05/2023 URINALYSIS, COMPLETE 04/30/2024 URINALYSIS, COMPLETE 07/13/2025 HEMOGLOBIN A1c 07/13/2025 HEMOGLOBIN A1c 04/30/2024 HEMOGLOBIN A1c 11/19/2022 INSULIN 11/19/2022 VITAMIN B12 07/13/2025 PSA (FREE AND TOTAL) 07/13/2025 PSA, TOTAL 11/05/2023 T4, FREE 04/30/2024 TSH 04/30/2024 TSH 11/05/2023 T3, FREE 04/30/2024 VITAMIN D,25-OH,TOTAL,IA 07/13/2025 US Testicular 08/04/2025 TSH+T3+Free T4+T3 Free 07/13/2025 PPC Urine Dip 08/04/2025 Next Appt Details Provider Name:EMILY SCOTT, 11/15/2025 03:15:00 PM, [address], [facility] [place], [address], Insurance Providers Payer Name Payer Address Payer Phone Subscriber Number Group Number Insured Name Patient Relationship to Insured Coverage Start Date Coverage End Date [facility] [address] [facility], [place] [address] [id number] John Mancuso Self - patient is the insured 2 Medications Administered Medication Instructions Date of Administration Dosage Notes [facility] B12 INJECTION 12/06/2022 [id number] Medical [...]
--- OUTSIDE RECORDS SUMMARY | 2025-09-09 04:45 | XMS_ITS | Clinical Summary ---
Author Organization [facility] Address [address] [place] [address] Care Team Providers Care Senior Ios Software Engineer Name Role Phone Abrahan Hastings MD Unavailable [phone] Andrea Owens MD Primary Care Provider [phone] Carlos Eduardo Fulton MD Unavailable [phone] Jose Jolly MD Unavailable [phone] Allergies No known active allergies Medications dulaglutide [...] Gluc Sensor (FreeStyle Gilda 2 Sensor) [facility] See Admin Instructions. 3 Active Continuous Blood Gluc Sensor (FreeStyle Gilda 2 Sensor) [facility] USE DIRECTED EVERY 2 [...] season) 2025 Medical Devices Implanted Type Area Business Analyst Project Manager Device Identifier Shelf Expiration Date Model / Serial / Lot [id number] Oval 38mm Porous Patella Implanted:Qty: 1 on 04/26/2023 by Abrahan Hastings MD at [facility] Left: Knee 08/27/2029 / / [id number] Tibial Baseplate 7 Left Implanted:Qty: 1 on 04/26/2023 by Abrahan Hastings MD at [facility] Left: Knee 02/20/2032 / [id number] Femur Cr 6 Left Implanted:Qty: 1 on 04/26/2023 by Abrahan Hastings MD at [facility] Left: Knee 07/18/2031 / [id number] Legion 11mm Hf Insert Implanted:Qty: 1 on 04/26/2023 by Abrahan Hastings MD at [facility] Left: Knee 01/13/2032 / / [id number] Procedures Procedure Name Priority Date/Time Associated Diagnosis Comments HEMOGLOBIN A1C WITH ESTIMATED AVERAGE GLUCOSE Routine 02/06/2023 2:09 PM EDT Arthritis of left knee Preop examination Primary hypertension Mixed hyperlipidemia Morbid obesity with BMI of 45.0-49.9, adult ([facility]) BASIC METABOLIC PANEL Routine 02/06/2023 2:09 PM EDT Arthritis of left knee Preop examination Primary hypertension Mixed hyperlipidemia Morbid obesity with BMI of 45.0-49.9, adult ([facility]) from Last 3 Months or Most Recently Relevant to Health Maintenance Results * (ABNORMAL) Hemoglobin A1c with Estimated Average Glucose (02/06/2023 2:09 PM EDT) Hemoglobin A1C 6.1(H) <5.7 % 02/06/2023 8:55 PM EDT [facility] Comment: A1c% Interpretation 5.7 - 6.0 Increase risk of diabetes 6.1 - 6.4 Higher risk of diabetes > or = 6.5 Consistent with diabetes Diabetes Care, 33(Supp 1):S1-S61, 2009 Estimated Average Glucose 128 mg/dL 02/06/2023 8:55 PM EDT [facility] Blood specimen (specimen) Blood specimen / Unknown 02/06/2023 2:09 PM EDT 02/06/2023 8:26 PM EDT [facility] [employer] [facility] BLOOD ORDERABLES Fi nal Result HOSPITAL LAB See Below [address] [address] * (ABNORMAL) Basic Metabolic Panel (02/06/2023 2:09 PM EDT) Glucose 116(H) 65 - 99 mg/dL 02/06/2023 8:59 PM EDT [facility] Comment:Fasting: <100 mg/dL, Non-Fasting: <200 mg/dL (ADA 2004) Blood Urea Nitrogen (BUN) 12 8 - 21 mg/dL 02/06/2023 8:59 PM EDT [facility] Creatinine 1.0 0.5 - 1.3 mg/dL 02/06/2023 8:59 PM EDT [facility] eGFR >90 >59 02/06/2023 8:59 PM T [facility] Comment: CKD-EPI (2020) in mL/min/1.73 sq meters. Reported eGFR is based on the CKD-EPI equation that does not use a race coefficient as of 12/25/2022 Sodium 140 136 - 145 mmol/L 02/06/2023 8:59 PM EDT [facility] Potassium 3.9 3.4 - 5.3 mmol/L 02/06/2023 8:59 PM T [facility] Chloride 105 98 - 107 mmol/L 02/06/2023 8:59 PM T [facility] CO2 29 22 - 33 mmol/L 02/06/2023 8:59 PM EDT [facility] Anion Gap 6(L) 7 - 17 02/06/2023 8:59 PM EDT [facility] Calcium 8.7 8.7 - 10.5 mg/dL 02/06/2023 8:59 PM T [facility] BUN/Creatinine Ratio 12 10.0 - 25.0 Ratio 02/06/2023 8:59 PM T [facility] Blood specimen (specimen) (Plasma/Serum) 02/06/2023 2:09 PM EDT 02/06/2023 8:26 PM EDT [facility] [employer] [facility] BLOOD ORDERABLES Fi nal Result HOSPITAL LAB See Below [address] [address] from Last 3 Months or Most Recently Relevant to Health Maintenance Insurance [facility] Advance Directives * Full Code (Latest Code Status on File) Date Activated Date Inactivated Comments 04/26/2023 3:48 PM * Full Code Date Activated Date Inactivated Comments 04/26/2023 8:41 AM 04/26/2023 3:48 PM Care Teams Senior Ios Software Engineer Relationship Specialty Start Date End Date Andrea Owens MD [address] [place] [id number] PCP - General Internal Medicine 02/01/23 Abrahan Hastings MD [address] [place] [id number] Surgery, Orthopedic 02/01/23 Carlos Eduardo Fulton MD [address] [place] [id number] Cardiovascular Disease 03/20/23 Jose Jolly MD [address] [place], [place] [address] [place] [address] Primary Reinforcing Steel Machine Operator Cardiovascular Disease 12/12/23
--- OUTSIDE RECORDS SUMMARY | 2025-09-09 04:45 | XMS_ITS | Clinical Summary ---
Author Organization [facility] Address [address] [place] [address] Care Team Providers Care Restoration Technician Name Role Phone Andrea Owens MD Primary Care Provider [phone] Allergies No known active allergies Medications Medication [...] Group Subscriber ID Effective Dates Phone Address [facility] [id number] 2018-Present [address] [facility] [address] [place] [address] HMO Advance Directives For more information, please contact: [phone] Latest Code Status on File Code Status Date Activated Date Inactivated Comments Full Code 03/07/2023 1:16 PM 03/07/2023 11:43 PM This code status was ascertained in the following way: discussion with patient . Care Teams Restoration Technician Relationship Specialty Start Date End Date Andrea Owens MD [address] [place] [address] PCP - General Internal Medicine 02/19/23
--- OUTSIDE RECORDS SUMMARY | 2025-09-09 04:46 | XMS_ITS | Encounter Summary ---
Author Organization [facility] Address [address] [place] [address] Care Team Providers Care Meteorological Engineer Name Role Phone Abrahan Hastings MD Unavailable Andrea Owens MD Primary Care Provider [phone] Carlos Eduardo Fulton MD Unavailable [phone] Jose Jolly MD Unavailable [phone] Encounter Details Date Type Department Care Team (Late st Contact Info) Description 03/01/2023 Scanned Document [facility] Bone & Joint [place] at [facility] [address] [place] [address] Cardiology, Scan Social History Tobacco [...] on filedocumented in this encounter Care Teams Meteorological Engineer Relationship Specialty Start Date End Date Andrea Owens MD [address] [place] [address] PCP - General Internal Medicine 02/01/23 Abrahan Hastings MD [address] [place] [address] [address] [place] [address] Surgery, Orthopedic 02/01/23 Carlos Eduardo Fulton MD [address] [place] [address] Cardiovascular Disease 03/20/23 Jose Jolly MD [address] [place] [address] [place] [address] Primary Senior Actuarial Analyst Cardiovascular Disease 12/12/23 documented as of this encounter
--- OUTSIDE RECORDS SUMMARY | 2025-09-09 04:46 | XMS_ITS | Patient Health Record ---
Author Organization [facility] Address [address] [place] [address] Care Team Providers Care Java Lead Name Role Phone Owens, Andrea Primary Care Provider Romana Valles Unavailable [phone] Allergies No Known Allergies Results Component Value [...] toe of lesser toe of right foot (3525650361666675 8) Other hammer toe(s) (acquired), right foot (M20.41) Active confirmed Problem Acquired hammer toe of lesser toe of left foot (9928842854333197 3) Other hammer toe(s) (acquired), left foot (M20.42) Active confirmed Problem Polyneuropathy due to type 2 diabetes mellitus (791288584) Type 2 diabetes mellitus with diabetic polyneuropathy (E11.42) Active confirmed Vital Signs Blood pressure diastolic 70 mm Hg 05/13/2025 Height 6ft in 05/13/2025 Blood pressure systolic 140 mm Hg 05/13/2025 Weight 315 lbs 05/13/2025 BMI 42.72 kg/m2 05/13/2025 Encounters Encounter Location Date Provider Diagnosis [facility] [address] [place] [address] 12/14/2024 Romana Leyva Onychomycosis B35.1 ; Type 2 diabetes mellitus with diabetic polyneuropathy E11.42 ; Tinea pedis of both feet B35.3 ; Other hammer toe(s) (acquired), right foot M20.41 and Other hammer toe(s) (acquired), left foot M20.42 [facility] [address] [place] [address] 05/13/2025 Romana Leyva Onychomycosis B35.1 ; Type 2 diabetes mellitus with diabetic polyneuropathy E11.42 and Tinea pedis of both feet B35.[address] [facility] [address] [address] 11/26/2024 Romana Perica [facility] [address] 12/22/2024 [facility] Per[facility] [address] [place] [address] 02/19/2025 Romana Perica [facility] [address] [place] [address] 04/20/2025 Romana Perica [address] [address] 05/13/2025 Romana Leyva Assessments Encounter Date Diagnosis [...] (LFT) 12/14/2024 *Liver Function Test (LFT) 05/13/2025 54822-Xhszcsos Plate 09/02/2018 09375-HJX 04/30/2014 74380- Debride <25 sq cm 06/15/2014 72356- Debride <25 sq cm 10/30/2013 27494-VLNNHXR SKIN/TISSUE 05/19/2014 77312 I&D ABSCESS- SIMPLE,SINGLE 015 71631 I&D ABSCESS- SIMPLE,SINGLE 014 37110 I&D ABSCESS- SIMPLE,SINGLE 013 60128-AOOW SKIN LESIONS, OVER 4 05/29/20 24 41362- Nail Unit Biopsy 09/02/2018 Insurance Providers Payer Name Payer Address Payer Phone Subscriber Number Group Number Insured Name Patient Relationship to Insured Coverage Start Date Coverage End Date [facility] [address] [place] [address] [id number] Mancuso Self - patient is the insured Medical (General) History Medical History History ICD Code Anemia Back,Hip,and Knee pain covid-19 Diabetic high blood pressure Surgical History Surgery Date(Month/Year) left wrist surgery nasal surgery knee surgery 04/12
--- OUTSIDE RECORDS SUMMARY | 2025-09-09 04:46 | XMS_ITS | Encounter Summary ---
Author Organization [facility] Address [address] [place] [address] Care Team Providers Care Scientist Electronics Name Role Phone Abrahan Hastings MD Unavailable [phone] Andrea Owens MD Primary Care Provider [phone] Carlos Eduardo Fulton MD Unavailable [phone] Jose Jolly MD Unavailable [phone] Encounter Details Date Type Department Care Team (Late st Contact Info) Description 03/01/2023 Scanned Document [facility] Bone & Joint [place] at [facility] [address] [place] [address] Provider, Generic Social History Tobacco [...] on filedocumented in this encounter Care Teams Scientist Electronics Relationship Specialty Start Date End Date Andrea Owens MD [address] [place] [address] PCP - General Internal Medicine 02/01/23 Abrahan Hastings MD [address] [place] [address] Surgery, Orthopedic 02/01/23 Carlos Eduardo Fulton MD [address] [place] [address] Cardiovascular Disease 03/20/23 Jose Jolly MD 100 [facility] [address] [place] [address] Primary Children'S Choir Director Cardiovascular Disease 12/12/23 documented as of this encounter
--- OUTSIDE RECORDS SUMMARY | 2025-09-09 04:46 | XMS_ITS | Encounter Summary ---
Author Organization [facility] Address [address] [place] [address] Care Team Providers Care Private Eye Name Role Phone Abrahan Hastings MD Unavailable [phone] Andrea Owens MD Primary Care Provider [phone] Carlos Eduardo Fulton MD Unavailable [phone] Jose Jolly MD Unavailable [phone] Encounter Details Date Type Department Care Team (Late st Contact Info) Description 03/04/2023 Scanned Document [facility] Bone & [facility] [place] at [facility] [address] [place] [address] Provider, Generic Social History Tobacco [...] on filedocumented in this encounter Care Teams Private Eye Relationship Specialty Start Date End Date Andrea Owens MD [address] [place] [address] PCP - General Internal Medicine 02/01/23 Abrahan Hastings MD [address] [place] [address] Surgery, Orthopedic 02/01/23 Carlos Eduardo Fulton MD [address] [place] [address] Cardiovascular Disease 03/20/23 Jose Jolly MD [address] [address] Primary Flower Grader Cardiovascular Disease 12/12/23 documented as of this encounter
--- OUTSIDE RECORDS SUMMARY | 2025-09-09 04:46 | XMS_ITS | Encounter Summary ---
Author Organization [facility] Address [address] [place] [address] Care Team Providers Care Er Registrar Name Role Phone Abrahan Hastings MD Unavailable [phone] Andrea Owens MD Primary Care Provider [phone] Carlos Eduardo Fulton MD Unavailable [phone] Jose Jolly MD Unavailable [phone] Encounter Details Date Type Department Care Team (Late st Contact Info) Description 03/04/2023 Scanned Document [facility] Bone & Joint [place] at [facility] [address] [place] [address] Provider, Generic Social History Tobacco [...] on filedocumented in this encounter Care Teams Er Registrar Relationship Specialty Start Date End Date Andrea Owens MD 299 [place] [address] PCP - General Internal Medicine 02/01/23 Abrahan Hastings MD [address] [place] [address] Surgery, Orthopedic 02/01/23 Carlos Eduardo Fulton MD [address] [place] [address] Cardiovascular Disease 03/20/23 Jose Jolly MD [address] [address] Primary Collaborative Teacher Cardiovascular Disease 12/12/23 documented as of this encounter
--- OUTSIDE RECORDS SUMMARY | 2025-09-09 04:46 | XMS_ITS | Encounter Summary ---
Author Organization [facility] Address [address] [place] [address] Care Team Providers Care Wide Area Network Engineer Name Role Phone Abrahan Hastings MD Unavailable [phone] Andrea Owens MD Primary Care Provider [phone] Carlos Eduardo Fulton MD Unavailable [phone] Jose Jolly MD Unavailable Encounter Details Date Type Department Care Team (Late st Contact Info) Description 03/04/2023 Scanned Document [facility] Bone & Joint [place] at [facility] [address] [place] [address] Provider, Generic Social History Tobacco [...] on filedocumented in this encounter Care Teams Wide Area Network Engineer Relationship Specialty Start Date End Date Andrea Owens MD [address] [place] [address] PCP - General Internal Medicine 02/01/23 Abrahan Hastings MD [address] [place] [address] Surgery, Orthopedic 02/01/23 Carlos Eduardo Fulton MD [address] [place] [address] Cardiovascular Disease 03/20/23 Jose Jolly MD [address] [address] Primary Nurse Monitoring Cardiovascular Disease 12/12/23 documented as of this encounter
--- OUTSIDE RECORDS SUMMARY | 2025-09-09 04:46 | XMS_ITS | Encounter Summary ---
Author Organization [facility] Address [address] [place] [address] Care Team Providers Care Public Opinion Survey Taker Name Role Phone Abrahan Hastings MD Unavailable [phone] Andrea Owens MD Primary Care Provider [phone] Carlos Eduardo Fulton MD Unavailable [phone] Jose Jolly MD Unavailable [phone] Encounter Details Date Type Department Care Team (Late st Contact Info) Description 02/28/2023 Scanned Document [facility] Bone & Joint [place] at [facility] [address] [place] [address] Cardiology, Scan Social History Tobacco [...] on filedocumented in this encounter Care Teams Public Opinion Survey Taker Relationship Specialty Start Date End Date Andrea Owens MD [address] [place] [address] PCP - General Internal Medicine 02/01/23 Abrahan Hastings MD [address] [place] [address] 100 [place] [address] Surgery, Orthopedic 02/01/23 Carlos Eduardo Fulton MD [address] [place] [address] Cardiovascular Disease 03/20/23 Jose Jolly MD [address] [place] [address] [place] [address] Primary Asbestos Pipe Supervisor Cardiovascular Disease 12/12/23 documented as of this encounter
--- OUTSIDE RECORDS SUMMARY | 2025-09-09 04:46 | XMS_ITS | Encounter Summary ---
Author Organization [facility] Address [address] [place] [address] Care Team Providers Care Aluminum Boat Assembly Supervisor Name Role Phone Abrahan Hastings MD Unavailable [phone] Andrea Owens MD Primary Care Provider [phone] Carlos Eduardo Fulton MD Unavailable Jose Jolly MD Unavailable [phone] Encounter Details Date Type Department Care Team ([facility] st Contact Info) Description 04/19/2023 Scanned Document [facility] [address] [address] Abrahan Hastings MD [address] [place] [id number] Social History Tobacco Use Types Packs/Day Years [...] on filedocumented in this encounter Care Teams Aluminum Boat Assembly Supervisor Relationship Specialty Start Date End Date Andrea Owens MD [address] [place] [address] PCP - General Internal Medicine 02/01/23 Abrahan Hastings MD [address] [place] [address] Surgery, Orthopedic 02/01/23 Carlos Eduardo Fulton MD [address] [place] [address] Cardiovascular Disease 03/20/23 Jose Jolly MD [address] [place] [address] Primary Teachers Aide Cardiovascular Disease 12/12/23 documented as of this encounter
== END 2025-09-08 16:16 | disposition home or self-care (01) ==
LOC: HO.HMGAL 16:15
PROVIDERS: PCP Internal Medicine; Visit Provider Registered Nurse Emergency
DX: J30.89 Other allergic rhinitis (principal)
CPT/HCPCS: 95117; 95165

== ENCOUNTER 2025-09-27 16:08 | Outpatient (AMB) | payer OTHER, SELFPAY ==
--- OUTSIDE RECORDS SUMMARY | 2025-09-28 01:40 | XMS_ITS | Encounter Summary ---
Author Organization [facility] Address [address] [place] [address] Care Team Providers Care Hospital Superintendent Name Role Phone Abrahan Hastings MD Unavailable [phone] Andrea Owens MD Primary Care Provider [phone] Carlos Eduardo Fulton MD Unavailable [phone] Jose Jolly MD Unavailable [phone] Encounter Details Date Type Department Care Team (Late st Contact Info) Description 03/04/[address] [facility] Bone & Joint [place] at [facility] [address] [place] [address] Provider, Generic Social History Tobacco [...] on filedocumented in this encounter Care Teams Hospital Superintendent Relationship Specialty Start Date End Date Andrea Owens MD [address] [place] [address] PCP - General Internal Medicine 02/01/23 Abrahan Hastings MD [address] [place] [address] Surgery, Orthopedic 02/01/23 Carlos Eduardo Fulton MD [address] [place] [address] Cardiovascular Disease 03/20/23 Jose Jolly MD [address] [address] Primary Marina Manager Cardiovascular Disease 12/12/23 documented as of this encounter
--- OUTSIDE RECORDS SUMMARY | 2025-09-28 01:41 | XMS_ITS | Encounter Summary ---
Author Organization [facility] Address [address] [place] [address] Care Team Providers Care Clean Room Technician Name Role Phone Abrahan Hastings MD Unavailable [phone] Andrea Owens MD Primary Care Provider [phone] Carlos Eduardo Fulton MD Unavailable [phone] Jose Jolly MD Unavailable [phone] Encounter Details Date Type Department Care Team (Late st Contact Info) Description 03/04/2023 Scanned Document [facility] Bone & [facility] [place] at [facility] [address] [place] [address] Provider, Generic Social History Tobacco [...] on filedocumented in this encounter Care Teams Clean Room Technician Relationship Specialty Start Date End Date Andrea Owens MD [address] [place] [address] PCP - General Internal Medicine 02/01/23 Abrahan Hastings MD [address] [place] [address] Surgery, Orthopedic 02/01/23 Carlos Eduardo Fulton MD [address] [place] [address] Cardiovascular Disease 03/20/23 Jose Jolly MD [address] [address] Primary Field Software Engineer Cardiovascular Disease 12/12/23 documented as of this encounter
--- OUTSIDE RECORDS SUMMARY | 2025-09-28 01:41 | XMS_ITS | Clinical Summary ---
Author Organization [facility] Address [address] [place] [address] Phone Care Team Providers Care Lye Boiler Name Role Phone Andrea Owens MD Primary Care Provider [phone] Encounters Date Type Department Care Team Description 08/09/2025 1:31 PM EDT - 08/09/2025 11:59 PM EDT Hospital Encounter [facility] Ultrasound [address] [place] [address] Mass of left testicle Discharge Disposition: Home or Self Care from Last 3 Months Surgical History Surgery Date Site/Laterality Comments SINUS SURGERY PROCEDURE:SINUS SURGERY HAND SURGERY PROCEDURE:HAND SURGERY CARDIAC CATHETERIZATION 03/07/2023 N/A PROCEDURE:CARDIAC CATHETERIZATION;COMMENT:Procedure: LEFT HEART CATHETERIZATION; Surgeon: Ishmael Kent DO; Location: [facility] CARDIAC RUBBER PRESS TENDER; Service: Cardiology; Laterality: N/A; CARDIAC CATHETERIZATION 03/07/2023 N/A PROCEDURE:CARDIAC CATHETERIZATION;COMMENT:Procedure: CORONARY ANGIOGRAPHY; Surgeon: Ishmael Kent DO; Location: [facility] CARDIAC RUBBER PRESS TENDER; Service: Cardiology; Laterality: N/A; Medical History Medical [...] on file Sexual Orientation Not on file Last Filed Vital Signs [...] Signed Date: 08/17/2025 14:30 ET Workstation ID: [id number] Transcribed By: Self Edit Transcribed Date: 08/17/2025 [...] Signed Date: 08/17/2025 14:30 ET Workstation ID: [id number] Transcribed By: Self Edit Transcribed Date: 08/17/2025 14:07 ET Abhijeet ANSARI Gay US PROCEDURES Final Result from Last [address] [facility] Care Teams Lye Boiler Relationship Specialty Start Date End Date Andrea Owens MD [address] [place] [address] PCP - General 02/19/23
--- OUTSIDE RECORDS SUMMARY | 2025-09-28 01:41 | XMS_ITS | Encounter Summary ---
Author Organization [facility] Address [address] [place] [address] Care Team Providers Care Clinical Appeals Auditor Name Role Phone Abrahan Hastings MD Unavailable [phone] Andrea Owens MD Primary Care Provider [phone] Carlos Eduardo Fulton MD Unavailable [phone] Jose Jolly MD Unavailable [phone] Encounter Details Date Type Department Care Team (Late st Contact Info) Description 03/01/2023 Scanned Document [facility] Bone & Joint [place] at [facility] [address] [place] [address] Provider, Generic Social History Tobacco [...] on filedocumented in this encounter Care Teams Clinical Appeals Auditor Relationship Specialty Start Date End Date Andrea Owens MD [address] [place] [address] PCP - General Internal Medicine 02/01/23 Abrahan Hastings MD [address] [place] [address] Surgery, Orthopedic 02/01/23 Carlos Eduardo Fulton MD [address] [place] [address] Cardiovascular Disease 03/20/23 Jose Jolly MD 100 [facility] [address] [place] [address] Primary Management Manager Cardiovascular Disease 12/12/23 documented as of this encounter
--- OUTSIDE RECORDS SUMMARY | 2025-09-28 01:41 | XMS_ITS | Encounter Summary ---
Author Organization [facility] Address [address] [place] [address] Care Team Providers Care Mural Artist Name Role Phone Abrahan Hastings MD Unavailable [phone] Andrea Owens MD Primary Care Provider Carlos Eduardo Fulton MD Unavailable [phone] Jose Jolly MD Unavailable [phone] Encounter Details Date Type Department Care Team (Late st Contact Info) Description 03/04/2023 Scanned Document [facility] Bone & Joint [place] at [facility] [address] [place] [address] Provider, Generic Social History Tobacco [...] on filedocumented in this encounter Care Teams Mural Artist Relationship Specialty Start Date End Date Andrea Owens MD [address] [place] [address] PCP - General Internal Medicine 02/01/23 Abrahan Hastings MD [address] [place] [address] Surgery, Orthopedic 02/01/23 Carlos Eduardo Fulton MD [address] [place] [address] Cardiovascular Disease 03/20/23 Jose Jolly MD [address] [place] [address] [address] Primary Saturator Operator Cardiovascular Disease 12/12/23 documented as of this encounter
--- OUTSIDE RECORDS SUMMARY | 2025-09-28 01:41 | XMS_ITS | Encounter Summary ---
Author Organization [facility] Address [address] [place] [address] Care Team Providers Care Clinical Allergist Name Role Phone Abrahan Hastings MD Unavailable [phone] Andrea Owens MD Primary Care Provider [phone] Carlos Eduardo Fulton MD Unavailable [phone] Jose Jolly MD Unavailable Encounter Details Date Type Department Care Team (Late st Contact Info) Description 02/28/2023 Scanned Document [facility] Bone & Joint [place] at [facility] [address] [place] [address] Cardiology, Scan Social History Tobacco [...] filedocumented in this encounter Care Teams Clinical Allergist Relationship Specialty Start Date End Date Andrea Owens MD [address] [place] [address] PCP - General Internal Medicine 02/01/23 Abrahan Hastings MD [address] [place] [address] 100 [place] [address] Surgery, Orthopedic 02/01/23 Carlos Eduardo Fulton MD [address] [place] [address] Cardiovascular Disease 03/20/23 Jose Jolly MD [address] [place] [address] [place] [address] Primary Automobile Club Travel Counselor Cardiovascular Disease 12/12/23 documented as of this encounter
--- OUTSIDE RECORDS SUMMARY | 2025-09-28 01:41 | XMS_ITS | Clinical Summary ---
Author Organization [facility] Address [address] [place] [address] Care Team Providers Care Director It Project Name Role Phone Abrahan Hastings MD Unavailable [phone] Andrea Owens MD Primary Care Provider [phone] Carlos Eduardo Fulton MD Unavailable [phone] Jose Jolly MD Unavailable [phone] Allergies No known active allergies Medications dulaglutide [...] Blood Gluc Sensor (FreeStyle Gilda 2 Sensor) [facility] See Admin Instructions. 3 Active Continuous Blood Gluc Sensor (FreeStyle Gilda 2 Sensor) [facility] USE DIRECTED EVERY 2 WEEKS 3 Active [...] lifestyle changes with PCP & Dr. Abrahan Hastnigs MD aware. Assessment & Plan (02/06/2023 12:20 [...] season) 2025 Medical Devices Implanted Type Area Content Management Consultant Device Identifier Shelf Expiration Date Model / Serial / Lot [id number] Oval 38mm Porous Patella Implanted:Qty: 1 on 04/26/2023 by Abrahan Hastings MD at [facility] Left: Knee 08/27/2029 / / [id number] Tibial Baseplate 7 Left Implanted:Qty: 1 on 04/26/2023 by Abrahan Hastings MD at [facility] Left: Knee 02/20/2032 / [id number] Femur Cr 6 Left Implanted:Qty: 1 on 04/26/2023 by Abrahan Hastings MD at [facility] Left: Knee 07/18/2031 / [id number] Legion 11mm Hf Insert Implanted:Qty: 1 on 04/26/2023 by Abrahan Hastings MD at [facility] Left: Knee 01/13/2032 / / [id number] Procedures Procedure Name Priority Date/Time Associated Diagnosis Comments HEMOGLOBIN A1C WITH ESTIMATED AVERAGE GLUCOSE Routine 02/06/2023 2:09 PM EDT Arthritis of left knee Preop examination Primary hypertension Mixed hyperlipidemia Morbid obesity with BMI of 45.0-49.9, adult ([facility]) BASIC METABOLIC PANEL Routine 02/06/2023 2:09 PM EDT Arthritis of left knee Preop examination Primary hypertension Mixed hyperlipidemia Morbid obesity with BMI of 45.0-49.9, adult ([facility]) from Last 3 Months or Most Recently Relevant to Health Maintenance Results * (ABNORMAL) Hemoglobin A1c with Estimated Average Glucose (02/06/2023 2:09 PM EDT) Hemoglobin A1C 6.1(H) <5.7 % 02/06/2023 8:55 PM EDT [facility] Comment: A1c% Interpretation 5.7 - 6.0 Increase risk of diabetes 6.1 - 6.4 Higher risk of diabetes > or = 6.5 Consistent with diabetes Diabetes Care, 33(Supp 1):S1-S61, 2009 Estimated Average Glucose 128 mg/dL 02/06/2023 8:55 PM EDT [facility] Blood specimen (specimen) Blood specimen / Unknown 02/06/2023 2:09 PM EDT 02/06/2023 8:26 PM EDT [facility] [place] DESK [facility]GE[facility] LAB BLOOD ORDERABLES Fi nal Result HOSPITAL LAB See Below [address] [address] * (ABNORMAL) Basic Metabolic Panel (02/06/2023 2:09 PM EDT) Glucose 116(H) 65 - 99 mg/dL 02/06/2023 8:59 PM EDT [facility] Comment:Fasting: <100 mg/dL, Non-Fasting: <200 mg/dL (ADA 2004) Blood Urea Nitrogen (BUN) 12 8 - 21 mg/dL 02/06/2023 8:59 PM EDT [facility] Creatinine 1.0 0.5 - 1.3 mg/dL 02/06/2023 8:59 PM EDT [facility] eGFR >90 >59 02/06/2023 8:59 PM T [facility] Comment: CKD-EPI (2020) in mL/min/1.73 sq meters. Reported eGFR is based on the CKD-EPI equation that does not use a race coefficient as of 12/25/2022 Sodium 140 136 - 145 mmol/L 02/06/2023 8:59 PM EDT [facility] Potassium 3.9 3.4 - 5.3 mmol/L 02/06/2023 8:59 PM T [facility] Chloride 105 98 - 107 mmol/L 02/06/2023 8:59 PM T [facility] CO2 29 22 - 33 mmol/L 02/06/2023 8:59 PM EDT [facility] Anion Gap 6(L) 7 - 17 02/06/2023 8:59 PM EDT [facility] Calcium 8.7 8.7 - 10.5 mg/dL 02/06/2023 8:59 PM T [facility] BUN/Creatinine Ratio 12 10.0 - 25.0 Ratio 02/06/2023 8:59 PM T [facility] Blood specimen (specimen) (Plasma/Serum) 02/06/2023 2:09 PM EDT 02/06/2023 8:26 PM EDT [facility] [place] [facility] LAB BLOOD ORDERABLES Fi nal Result HOSPITAL LAB See Below [address] [address] from Last 3 Months or Most Recently Relevant to Health Maintenance Insurance [facility] Advance Directives * Full Code (Latest Code Status on File) Date Activated Date Inactivated Comments 04/26/2023 3:48 PM * Full Code Date Activated Date Inactivated Comments 04/26/2023 8:41 AM 04/26/2023 3:48 PM Care Teams Director It Project Relationship Specialty Start Date End Date Andrea Owens MD [address] [place] [phone] PCP - General Internal Medicine 02/01/23 Abrahan Hastings MD [address] [place] [phone] Surgery, Orthopedic 02/01/23 Carlos Eduardo Fulton MD [address] [place] [address] Cardiovascular Disease 03/20/23 Jose Jolly MD [address] [place], [place] [address] [place] [address] Primary Hobbies And Crafts Sales Representative Cardiovascular Disease 12/12/23
--- OUTSIDE RECORDS SUMMARY | 2025-09-28 01:41 | XMS_ITS | Encounter Summary ---
Author Organization [facility] Address [address] [place] [address] Care Team Providers Care Rug Clipper Name Role Phone Abrahan Hastings MD Unavailable [phone] Andrea Owens MD Primary Care Provider [phone] Carlos Eduardo Fulton MD Unavailable Jose Jolly MD Unavailable [phone] Encounter Details Date Type Department Care Team (Late st Contact Info) Description 03/01/2023 Scanned Document [facility] [address] [place] [address] Cardiology, Scan Social History Tobacco [...] on filedocumented in this encounter Care Teams Rug Clipper Relationship Specialty Start Date End Date Andrea Owens MD [address] [place] [phone] PCP - General Internal Medicine 02/01/23 Abrahan Hastings MD [address] [place] [address] [address] [place] [address] Surgery, Orthopedic 02/01/23 Carlos Eduardo Fulton MD [address] [place] [address] Cardiovascular Disease 03/20/23 Jose Jolly MD [address] [place] [address] [place] [address] Primary C Software Developer Cardiovascular Disease 12/12/23 documented as of this encounter
--- OUTSIDE RECORDS SUMMARY | 2025-09-28 01:41 | XMS_ITS | Encounter Summary ---
Author Organization [facility] Address [address] [place] [address] Care Team Providers Care Ampoule Washing Machine Operator Name Role Phone Abrahan Hastings MD Unavailable [phone] Andrea Owens MD Primary Care Provider Carlos Eduardo Fulton MD Unavailable [phone] Jose Jolly MD Unavailable [phone] Encounter Details Date Type Department Care Team ([facility] st Contact Info) Description 04/19/2023 Scanned Document [facility] [address] [phone] Abrahan Hastings MD [address] [place] [id number] Social History Tobacco Use Types Packs/Day Years [...] on filedocumented in this encounter Care Teams Ampoule Washing Machine Operator Relationship Specialty Start Date End Date Andrea Owens MD [address] [place] [address] PCP - General Internal Medicine 02/01/23 Abrahan Hastings MD [address] [place] [address] Surgery, Orthopedic 02/01/23 Carlos Eduardo Fulton MD [address] [place] [address] Cardiovascular Disease 03/20/23 Jose Jolly MD [address] [place] [address] Primary Cocktail Waitress Cardiovascular Disease 12/12/23 documented as of this encounter
--- OUTSIDE RECORDS SUMMARY | 2025-09-28 01:41 | XMS_ITS | Encounter Summary ---
Author Organization [facility] Address [address] [place] [address] Care Team Providers Care Die Maker Name Role Phone Abrahan Hastings MD Unavailable Andrea Owens MD Primary Care Provider [phone] Carlos Eduardo Fulton MD Unavailable [phone] Jose Jolly MD Unavailable [phone] Encounter Details Date Type Department Care Team (Late st Contact Info) Description 04/26/2023 Scanned Document [facility] [address] [phone] Abrahan Hastings MD [address] [place] [id number] Social History Tobacco Use Types Packs/Day Years [...] on filedocumented in this encounter Care Teams Die Maker Relationship Specialty Start Date End Date Andrea Owens MD [address] [place] [address] PCP - General Internal Medicine 02/01/23 Abrahan Hastings MD [address] [place] [address] Surgery, Orthopedic 02/01/23 Carlos Eduardo Fulton MD [address] [place] [address] Cardiovascular Disease 03/20/23 Jose Jolly MD [address] [place] [phone] Primary Combination Welder Apprentice Cardiovascular Disease 12/12/23 documented as of this encounter
--- OUTSIDE RECORDS SUMMARY | 2025-09-28 01:41 | XMS_ITS | Clinical Summary ---
Author Organization [facility] Prior to 03/20/[address] [place] [address] Care Team Providers Care Managing Member Name Role Phone Andrea Owens MD Primary Care Provider [phone] Allergies No known active allergies Medications Medication [...] Group Subscriber ID Effective Dates Phone Address [facility] [id number] 2018-Present [address] [facility] [address] [place] [address] HMO Advance Directives For more information, please contact: [phone] Latest Code Status on File Code Status Date Activated Date Inactivated Comments Full Code 03/07/2023 1:16 PM 03/07/2023 11:43 PM This code status was ascertained in the following way: discussion with patient . Care Teams Managing Member Relationship Specialty Start Date End Date Andrea Owens MD [address] [place] [address] PCP - General Internal Medicine 02/19/23
== END 2025-09-27 16:09 | disposition home or self-care (01) ==
LOC: HO.HMGAL 16:08
PROVIDERS: PCP Internal Medicine; Visit Provider Registered Nurse Emergency
DX: J30.89 Other allergic rhinitis (principal)
CPT/HCPCS: 95117; 95165